=== PATIENT | male | born 1940 | race Caucasian/White ===

== ENCOUNTER → 2018-07-08 09:37 | Outpatient (CLI) | payer OTHER, SELFPAY ==
--- NOTE | 2018-07-08 09:40 | RAD_ITS ---
STUDY: X-RAY - RIGHT KNEE REASON FOR EXAM: Male, 78 years old. Pain. TECHNIQUE: 4 view(s) of the knee. COMPARISON: None. FINDINGS: Normal visualized distal femur. Normal visualized proximal tibia and fibula. Normal proximal tibiofibular articulation. There is no acute fracture, dislocation or destructive osseous pathology. There is mild degenerative arthrosis of the medial femorotibial compartment. There is mild degenerative arthrosis of the lateral femorotibial compartment. There is mild degenerative arthrosis of the patellofemoral articulation. There is no demonstrated joint effusion. The soft tissue structures are unremarkable. RAD/Knee 4 or More Views IMPRESSION: Degenerative arthrosis. Electronically Signed: Javy Arenas DO at 19:41 EST Tel [phone], Service support ,
== END ==
PROVIDERS: Family Provider Family Medicine; PCP Family Medicine; Referring Provider Orthopaedic Surgery; Visit Provider Orthopaedic Surgery
DX: M17.11 Unilateral primary osteoarthritis, right knee (principal)
CPT/HCPCS: 73564

== ENCOUNTER → 2018-08-16 12:03 | Outpatient (CLI) | payer OTHER, SELFPAY | PROVIDERS: Family Provider Family Medicine; PCP Family Medicine; Referring Provider Dermatology Pediatric Dermatology; Visit Provider Dermatology Pediatric Dermatology | DX: L02.31 Cutaneous abscess of buttock (principal) | CPT/HCPCS: 87070; 87077; 87205 ==

== ENCOUNTER → 2019-02-02 14:17 | Outpatient (CLI) | payer OTHER, SELFPAY ==
--- NOTE | 2019-02-02 14:18 | RAD_ITS ---
STUDY: X-RAY - RIGHT KNEE REASON FOR EXAM: Pain, felt a pop. TECHNIQUE: 4 view(s) of the knee. COMPARISON: Radiographs 07/08/2018. FINDINGS: Normal visualized distal femur. Normal visualized proximal tibia and fibula. Normal proximal tibiofibular articulation. There is mild joint space narrowing of the medial femorotibial compartment. There is a subtle osteochondral lesion of the lateral femoral condyle on the tunnel view without interval change. There are minimal marginal osteophytes and mild joint space narrowing of the patellofemoral articulation. The soft tissue structures are unremarkable. RAD/Knee 4 or More Views IMPRESSION: Mild arthrosis of the medial femorotibial and patellofemoral compartments. Subtle osteochondral lesion of the lateral femoral condyle. Electronically Signed: Mohamud Sevlila MD at 15:34 EDT Tel , Service support ,
== END ==
PROVIDERS: Family Provider Family Medicine; PCP Family Medicine; Referring Provider Physician Assistant; Visit Provider Physician Assistant
DX: M25.561 Pain in right knee (principal)
CPT/HCPCS: 73564

== ENCOUNTER → 2020-04-29 07:42 | Outpatient (CLI) | payer OTHER, SELFPAY | PROVIDERS: PCP Family Medicine; Referring Provider Orthopaedic Surgery; Visit Provider Orthopaedic Surgery | DX: I70.90 Unspecified atherosclerosis (principal); M18.12 Unilateral primary osteoarthritis of first carpometacarpal joint, left hand | CPT/HCPCS: 93930 ==

== ENCOUNTER 2021-05-05 14:22 | Outpatient (CLI) | payer OTHER, SELFPAY ==
[2021-05-05 14:48] VITALS: BP 115/76; PULSE 93; RESP 16; TEMP 36.9; O2SAT 97; BMI 27.1
[2021-05-05] MEDS: 0.9% Saline Lock 10 ML Syringe IV (14:56)
[2021-05-05 15:37] VITALS: BP 108/55; PULSE 94; RESP 16; TEMP 37.1; O2SAT 98
[2021-05-05 16:22] VITALS: BP 103/77; PULSE 98; RESP 16; TEMP 37.2; O2SAT 98
== END 2021-05-05 16:37 | disposition home or self-care (01) ==
LOC: MS3OUT 14:22 → MS3 14:23
PROVIDERS: PCP Student in an Organized Health Care Education/Training Program; Referring Provider Internal Medicine Pulmonary Disease; Visit Provider Internal Medicine Pulmonary Disease
DX: Z23 Encounter for immunization (principal); U07.1 COVID-19
CPT/HCPCS: J7050; M0243; A4216; Q0244

== ENCOUNTER → 2021-05-12 | Outpatient (CLI) | payer OTHER, SELFPAY | END | disposition home or self-care (01) | LOC: LABSPEC 15:13 | PROVIDERS: Referring Provider Otolaryngology Otolaryngology/Facial Plastic Surgery; Visit Provider Otolaryngology Otolaryngology/Facial Plastic Surgery | DX: J32.9 Chronic sinusitis, unspecified (principal) | CPT/HCPCS: 87070; 87205 ==

== ENCOUNTER → 2021-05-22 11:10 | Outpatient (CLI) | payer OTHER, SELFPAY ==
--- NOTE | 2021-05-22 11:13 | RAD_ITS ---
STUDY: X-RAY CHEST REASON FOR EXAM: Male, 80 years old. Chest pain/pressure TECHNIQUE: PA and lateral views of the chest. COMPARISON: None. FINDINGS: The lungs are clear and expanded. There is no demonstrated pleural abnormality. Normal size heart. Normal mediastinum and braeden. Normal visualized pulmonary arteries. Normal visualized aortic arch and descending thoracic aorta. There are diffuse degenerative changes of the visualized thoracic spine. Normal visualized ribs, clavicles, and shoulders. There is no demonstrated abnormality of the visualized soft tissue structures of the upper abdomen. RAD/Chest PA and Lateral IMPRESSION: No acute pulmonary process Electronically Signed: Basil Delgado MD at 15:43 EST , Service support ,
== END ==
PROVIDERS: Referring Provider Internal Medicine Pulmonary Disease; Visit Provider Internal Medicine Pulmonary Disease
DX: U07.1 COVID-19 (principal)
CPT/HCPCS: 71046

== ENCOUNTER → 2023-09-14 | Outpatient (CLI) | payer OTHER, SELFPAY ==
[2023-09-14 08:19] LABS: Bacteria 0 SEEN /hpf (None Seen); Mucous, Urine 0 SEEN /hpf (<or=2+); Red Blood Cells-Urine 0 SEEN /hpf (0-5); Squamous Epithelial Cells - UA 0 SEEN /hpf (0-5)
[2023-09-14 10:56] LABS: Color, Urine Yellow (Yellow); Glucose, Dipstick Normal (Normal); Ketone-Dipstick Negative (Negative); Leukocyte Esterase-Dipstick Negative /ul (Negative); Nitrite-Dipstick Negative (Negative); Occult Blood-Urine Negative /ul (Negative); Protein-Dipstick Negative (Negative); Urine Bilirubin Dipstick Negative (Negative); Urine Clarity Clear (Clear); Urine Urobilinogen Normal (Normal)
[2023-09-14 11:11] LABS: White Blood Cells 0-5 SEEN /hpf (0-5)
== END | disposition home or self-care (01) ==
PROVIDERS: Visit Provider Physician Assistant
DX: R30.0 Dysuria (principal)
CPT/HCPCS: 81001; 87086

== ENCOUNTER 2024-06-19 17:28 | Emergency (ER) | payer MEDICARE, OTHER, SELFPAY ==
[2024-06-19 17:30] VITALS: BP 122/106; PULSE 103; RESP 15; TEMP 36; O2SAT 97; BMI 26.8
--- NOTE | 2024-06-19 20:02 | EX.ED.DYSGE1 ---
HPI History of Present Illness Chief Complaint: GI Bleed [facility] Medical History (Updated 06/19/24 @ 22:[address] Cristhian Case, DO) Impingement of right shoulder Right shoulder pain Dysuria Urinary incontinence Prostate cancer A-fib H/O TIA (transient ischemic attack) and stroke hypertension tonsilectomy Appendiceal Removal Gallbladder Removal spinal fusion Home Medications ?Medication ?Instructions ?Recorded ?Last Taken ?Type citalopram 40 mg tablet 20 mg PO DAILY 07/08/18 Unknown History multivitamin (Daily Multi-Vitamin 1 tab PO DAILY 07/08/18 Unknown History tablet) pravastatin 80 mg tablet 80 mg PO DAILY 07/08/18 Unknown History lisinopril 10 mg tablet 5 mg PO DAILY 05/09/20 Unknown History omega-3 fatty acids 1,000 mg 1,000 mg PO DAILY 06/13/20 Unknown History capsule (Fish Oil Concentrate) pantoprazole 40 mg tablet,delayed 40 mg PO DAILY 06/13/20 Unknown History release polyethylene glycol 3350 17 17 g PO DAILY 06/13/20 Unknown History gram/dose oral powder (Miralax) apixaban 5 mg tablet (Eliquis) 5 mg PO BID 01/22/22 Unknown History nifedipine 30 mg tablet,extended 30 mg PO DAILY #90 tabs 02/12/22 Unknown Rx release pseudoephedrine 60 mg-DM 15 1 tab PO Q4-6H PRN cold symptoms 06/02/24 Unknown Rx mg-guaifenesin 400 mg tablet #20 tabs (Capmist DM) pseudoephedrine HCl 120 mg 120 mg PO Q12H PRN nasal 06/02/24 Unknown Rx tablet,extended release (Nasal congestion #30 tabs Decongestant (pseudoephedrine)) albuterol sulfate 90 mcg/actuation 2 puff inhalation Q4-6H PRN 06/05/24 Unknown Rx aerosol inhaler shortness of breath or wheezing #6.7 grams Allergy/AdvReac Type Severity Reaction Status Date / Time venom-honey bee Allergy Hives Verified 06/19/24 17:30 hydrocodone AdvReac Upset Verified 06/19/24 17:30 Stomach oxycodone AdvReac Upset Verified 06/19/24 17:30 Stomach Surgical History H/O colonoscopy History of appendectomy History of cholecystectomy History of back surgery (~12/2017) History of left knee replacement Social History Smoking Status: Former smoker alcohol intake: never substance use type: does not use EXAM Physical Exam Const Vital Signs: 06/19/24 17:30 06/19/24 20:27 06/19/24 22:00 Temperature 96.8 F L Temperature Source Temporal Pulse Rate 103 H 66 81 Respiratory Rate 15 15 15 Blood Pressure 122/106 H 141/70 H 136/87 H Blood Pressure Mean 111 93 103 Pulse Ox 97 97 97 Oxygen Delivery Method Room Air Room Air Room Air MDM MDM MDM Narrative Medical decision making narrative: HISTORY OF PRESENT ILLNESS: 84-year-old male here with concern for GI bleed. Notes is on Eliquis. Notes this morning he is constipated. Notes his gave him a Fleet enema. Since then he has been experiencing lower abdominal pain and bloating. He notes he had a bowel movement with bright red blood. Notes on Eliquis. Denies vomiting. Denies fever. REVIEW OF SYSTEMS: Pertinent positives: Constipation, bright red blood bowel movement, abdominal pain, bloating Pertinent negatives: Vomiting, fever PHYSICAL EXAM: Nursing triage notes reviewed, Vital signs reviewed Constitutional: please see mdm HENT: MMM Eyes: Pupils equal round and reactive to light, Extraocular muscles intact Neck: No stridor, no JVD, full neck ROM Lungs: Clear to auscultation, No wheezing or rales. No increased work of breathing, no conversational dyspnea, no accessory muscle use, no nasal flaring. No respiratory distress noted Heart: Regular rate and rhythm, No murmurs, No rubs and No gallops, 2+ distal pulses (radial, femoral, posterior tibial) in all extremities Abdomen: Soft, there is no tenderness, rigidity, rebound or guarding, no obvious peritoneal signs, no palpable pulsatile abdominal masses, no auscultated abdominal bruit : No CVAT Extremities: No edema Neuro: No new focal neurological deficits, cranial nerves II through XII intact, 5/5 strength in all present extremities. Intact sensation to light touch in all present extremities, 2+ reflexes bilateral patella tendons. Rectal: Performed supervisor [employer] division in room shows nonbleeding hemorrhoid, no fissures, no fistulas. No gross blood. No melena noted on glove. Occult blood sample sent to lab. Skin: No rash or lesions noted MEDICAL DECISION MAKING: Chief Complaint: Bright red blood per rectum, abdominal pain External records reviewed: Reviewed patient medications. He is currently on Eliquis Factors affecting care: A-fib on Eliquis, prostate cancer, history of appendectomy, cholecystectomy Social determinants of health: none History obtained from others: none Consults: Gastroenterology MDM Narrative: Patient was initially hemodynamically stable, afebrile and nontoxic-appearing. Exam with lower abdominal distention I considered the following differential diagnosis: Acute surgical intra-abdominal pathology, anemia, GI bleed I obtained a broad lab and imaging workup to further elucidate etiology of the patient's complaints. ALL IMAGES (IF OBTAINED) HAVE BEEN PERSONALLY REVIEWED AND INTERPRETED BY MYSELF. CBC with no leukocytosis to suggest systemic inflammation, mild anemia hemoglobin 11.5, no thrombocytopenia CMP without evidence of acute kidney injury, significant electrolyte abnormality, anion gap to suggest end organ hypo-perfusion, no evidence of metabolic acidosis with a normal bicarbonate, no evidence of hepatobiliary obstructive pathology. Lipase is wnl indicating no pancreatic inflammation. Urinalysis shows no evidence of urinary inflammation suggestive of UTI Stool occult positive CT scan abdomen/pelvis shows no evidence of acute obstruction/perforation or AAA. I calculated [place] score. [place] score 13. Discussed with GI. Given concern for GI bleed on Eliquis I consulted GI. Spoke with Dr. Hooks. Dr. Hooks noted given the patient's report of recent rectal manipulation in the form of Fleet enema patient has a possible reason for GI bleeding. He states despite the patient's elevated [place] score and recommendation for admission patient does not require emergent GI intervention at this time and he is appropriate for discharge home with close follow-up with Dr. Hooks as an outpatient. Discussed with patient who is amenable to discharge. He noted he would return if symptoms change or worsen. The patient and/or family, caregivers express understanding. The patient and/or family, caregivers agrees with the plan. Shared decision making: I will have a discussion with the patient and or visitors regarding risk/benefits of further testing or admission. They will be made aware of of the risk/benefits inherent in this decision they will be given the opportunity to voice understanding. Total critical care time today provided was at least 0 minutes. This excludes separately billable procedures. Critical care time (if documented) is secondary to the patient having high probability of clinically significant/life threatening deterioration in the patient's condition which required my urgent intervention. Impression: 1. Acute abdominal pain 2. Lower GI bleed 3. History of anticoagulation Dispo: discharge This note was generated with [employer] dictation software. It may contain incorrect words, spelling, and punctuation that were not noted in review of the chart prior to signing. Lab Data Labs: Laboratory Results - last 24 hr 06/19/24 06/19/24 06/19/24 20:24 20:25 20:45 WBC 7.2 Cancelled Corrected WBC Cancelled RBC 3.27 L Cancelled Hgb 11.5 L Cancelled Hct 33.2 L Cancelled MCV 101.5 H Cancelled MCH 35.2 H Cancelled MCHC 34.6 Cancelled RDW Std Deviation 58.8 H Cancelled RDW Coeff of Amisha 16.1 H Cancelled Plt Count 318 Cancelled MPV 11.3 Cancelled Immature Gran % (Auto) 0.700 Cancelled Neut % (Auto) 77.0 H Cancelled Lymph % (Auto) 14.9 L Cancelled [place] % (Auto) 5.7 Cancelled Eos % (Auto) 1.3 Cancelled Baso % (Auto) 0.4 Cancelled Absolute Neuts (auto) 5.5 Cancelled Absolute Lymphs (auto) 1.07 Cancelled Total Counted Cancelled Neutrophils % (Manual) Cancelled Band Neutrophils % Cancelled Lymphocytes % (Manual) Cancelled Monocytes % (Manual) Cancelled Eosinophils % (Manual) Cancelled Basophils % (Manual) Cancelled Metamyelocytes % Cancelled Myelocytes % Cancelled Promyelocytes % Cancelled Blast Cells % Cancelled Plasma Cell % (Manual) Cancelled Other Cells % Cancelled Nucleated RBC % 0 Cancelled Nucleated RBCs/100 WBC Cancelled Differential Comment Cancelled Diff Path Review Cancelled Hypersegmented Neuts Cancelled Atypical Lymphocytes Cancelled Reactive Lymphocytes Cancelled Smudge Cells Cancelled Toxic Granulation Cancelled Toxic Vacuolation Cancelled Dohle Bodies Cancelled Miguel Rods Cancelled Platelet Estimate Cancelled Plt Morphology Comment Cancelled RBC Morphology Cancelled Polychromasia Hypochromasia Basophilic Stippling Anisocytosis Microcytosis Macrocytosis Spherocytes Sickle Cells Target Cells Tear Drop Cells Ovalocytes Stomatocytes [place] Bodies Kathy Cells Bite Cells Crenated Cell Acanthocytes (Spur) Rouleaux Schistocytes Sodium Cancelled Potassium Cancelled Chloride Cancelled Carbon Dioxide Cancelled Anion Gap Cancelled BUN Cancelled Creatinine Cancelled Estim Creat Clear Calc Cancelled Est GFR (MDRD) Af Amer Cancelled Est GFR (MDRD) Non-Af Cancelled BUN/Creatinine Ratio Cancelled Glucose Cancelled Calcium Cancelled Total Bilirubin Cancelled AST Cancelled ALT Cancelled Alkaline Phosphatase Cancelled Total Protein Cancelled Albumin Cancelled Globulin Cancelled Albumin/Globulin Ratio Cancelled Amylase Lipase Urine Color Yellow Urine Clarity Clear Urine pH 6.0 Ur Specific [place] 1.015 Urine Protein 15 H Urine Glucose (UA) Normal Urine Ketones Negative Urine Occult Blood Negative Urine Nitrite Negative Urine Bilirubin Negative Urine Urobilinogen Normal Ur Leukocyte Esterase Negative Urine RBC 0 SEEN Urine WBC 0 SEEN Ur Squamous Epith Cells 0 SEEN Urine Bacteria 0 SEEN Urine Mucus 0 SEEN 06/19/24 20:45 WBC Corrected WBC RBC Hgb Hct MCV MCH MCHC RDW Std Deviation RDW Coeff of Amisha Plt Count MPV Immature Gran % (Auto) Neut % (Auto) Lymph % (Auto) [place] % (Auto) Eos % (Auto) Baso % (Auto) Absolute Neuts (auto) Absolute Lymphs (auto) Total Counted Neutrophils % (Manual) Band Neutrophils % Lymphocytes % (Manual) Monocytes % (Manual) Eosinophils % (Manual) Basophils % (Manual) Metamyelocytes % Myelocytes % Promyelocytes % Blast Cells % Plasma Cell % (Manual) Other Cells % Nucleated RBC % Nucleated RBCs/100 WBC Differential Comment Diff Path Review Hypersegmented Neuts Atypical Lymphocytes Reactive Lymphocytes Smudge Cells Toxic Granulation Toxic Vacuolation Dohle Bodies Miguel Rods Platelet Estimate Plt Morphology Comment RBC Morphology Cancelled Polychromasia Cancelled Hypochromasia Cancelled Basophilic Stippling Cancelled Anisocytosis Cancelled Microcytosis Cancelled Macrocytosis Cancelled Spherocytes Cancelled Sickle Cells Cancelled Target Cells Cancelled Tear Drop Cells Cancelled Ovalocytes Cancelled Stomatocytes Cancelled [place] Bodies Cancelled [place] Cells Cancelled Bite Cells Cancelled Crenated Cell Cancelled Acanthocytes (Spur) Cancelled Rouleaux Cancelled Schistocytes Cancelled Sodium 138 Potassium 4.4 Chloride 105 Carbon Dioxide 25.0 Anion Gap 8 BUN 26 H Creatinine 1.27 Estim Creat Clear Calc 49.22 Est GFR (MDRD) Af Amer 70 Est GFR (MDRD) Non-Af 58 L BUN/Creatinine Ratio 20.5 H Glucose 98 Calcium 9.7 Total Bilirubin 1.30 H AST 31 ALT 26 Alkaline Phosphatase 96 Total Protein 7.0 Albumin 3.7 Globulin 3.3 Albumin/Globulin Ratio 1.1 Amylase 63 Lipase 50 Urine Color Urine Clarity Urine pH Ur Specific [place] Urine Protein Urine Glucose (UA) Urine Ketones Urine Occult Blood Urine Nitrite Urine Bilirubin Urine Urobilinogen Ur Leukocyte Esterase Urine RBC Urine WBC Ur Squamous Epith Cells Urine Bacteria Urine Mucus Radiography Diagnostic Testing: Clinical Impression(s) from Imaging Studies Abdomen/Pelvis CT 06/19/24 20:13 IMPRESSION: Diverticular disease of the descending colon without evidence for acute diverticulitis No evidence for small bowel obstruction or other acute abnormality Status post cholecystectomy and appendectomy. Other findings as above Electronically Signed: Yair Ng MD at 21:16 EST Reading Location ID and State: [address] [place] [address] Tel , Service support , Discharge Plan Triage Chief Complaint: GI Bleed ED Provider: Cristhian Case Dx/Rx/DC Orders Clinical Impression: BRBPR (bright red blood per rectum) Instructions: GI Bleeding Causes and Tests Prescriptions: No Action citalopram 40 mg tablet 20 mg PO DAILY pravastatin 80 mg tablet 80 mg PO DAILY multivitamin [Daily Multi-Vitamin] tablet 1 tab PO DAILY lisinopril 10 mg tablet 5 mg PO DAILY pantoprazole 40 mg tablet,delayed release (DR/EC) 40 mg PO DAILY omega-3 fatty acids [Fish Oil Concentrate] 1,000 mg capsule 1,000 mg PO DAILY polyethylene glycol 3350 [Miralax] 17 gram/dose powder 17 g PO DAILY nifedipine 30 mg tablet extended release 30 mg PO DAILY Qty: 90 3RF Capmist DM 60-15-400 mg tablet 1 tab PO Q4-6H PRN (Reason: cold symptoms) Qty: 20 0RF Rx Instructions: do not exceed 4 doses per 24 hrs pseudoephedrine HCl [Nasal Decongestant (pseudoeph)] 120 mg tablet extended release 120 mg PO Q12H PRN (Reason: nasal congestion) Qty: 30 0RF Eliquis 5 mg tablet 5 mg PO BID albuterol sulfate 90 mcg/actuation HFA aerosol inhaler 2 puff inhalation Q4-6H PRN (Reason: shortness of breath or wheezing) Qty: 6.7 0RF Primary Care Provider: Ariel Pope Referrals: Ariel Pope DO [Primary Care Provider] - FriendViktor DO [Med Staff - Active Staff] - Activity Restrictions/Additional Instructions: Thank you for trusting us with your care today! Your labs were reassuring specifically no sign of significant anemia. Your CT scan did not show evidence of obstruction or perforation. I discussed your case with the GI doctor on-call. I spoke to Dr. Hooks. He thought you are safe to follow-up with him this week in his office. Please call the numbers been provided tomorrow morning to schedule an appointment. Please take Tylenol (2 pills, 650 mg) every 6 hours as needed for pain and fever control. Please return to the emergency department if your symptoms change or worsen. Specifically if develop lightheadedness, dizziness, heavy rectal bleeding, if you lose consciousness, if you develop chest pain or shortness of breath, if you look pale. Please follow with Gastroenterology for further outpatient evaluation and management. Print Language: Bengali Disposition Disposition: Home, Self Care
--- NOTE | 2024-06-19 20:13 | CT_ITS ---
STUDY: CT ABDOMEN AND PELVIS WITH CONTRAST REASON FOR EXAM: Male, 84 years old. diffuse abdominal pain, bloating RADIATION DOSAGE (If Supplied By Facility): CTDIvol = ( 16.64 ) mGy, DLP = ( 1060.07 ) mGycm TECHNIQUE: Transaxial images were obtained from the dome of the diaphragm to the symphysis pubis without oral contrast. IV 100mL Isovue-300 was administered. Sagittal and coronal images were reconstructed. Individualized dose optimization techniques were used for this CT. COMPARISON: None. FINDINGS: The visualized lung bases are unremarkable. The visualized portions of the heart are within normal limits. Liver is normal size. There is a tiny cyst in left lobe. Bile ducts are not dilated. Gallbladder has been removed surgically. Normal spleen. Normal pancreas. Normal bilateral adrenal glands. 2 large simple cyst in right kidney which cannot require additional imaging and 2 tiny cysts in the left . No evidence for renal obstruction or ureteral calculus Normal visualized stomach. Normal small intestine. Diverticular disease of the descending colon without evidence for acute diverticulitis. Appendix is not visualized status post appendectomy Atherosclerotic changes of the aorta without evidence for aneurysm. Normal inferior vena cava. Normal retroperitoneum. Normal urinary bladder. Prostate is enlarged. Moderate-sized fat-containing right inguinal hernia . Lumbar spine demonstrates degenerative changes. Grade 1 spondylolisthesis at L4-5. Status post bilateral laminectomy and posterior fusion at L4-5 . Tiny sclerotic densities within the right hip most likely bone islands CT/Abdomen/Pelvis W IV Cont ONLY IMPRESSION: Diverticular disease of the descending colon without evidence for acute diverticulitis No evidence for small bowel obstruction or other acute abnormality Status post cholecystectomy and appendectomy. Other findings as above Electronically Signed: Yair Ng MD at 21:16 EST ,
[2024-06-19 20:27] VITALS: BP 141/70; PULSE 66; RESP 15; O2SAT 97
[2024-06-19] MEDS: 0.9% Normal Saline (1000mL) 1,000 ML 999 ML IV (20:41)
[2024-06-19] MEDS: Morphine 4 MG/ML Syringe IV (20:42)
[2024-06-19] MEDS: Ondansetron 4 MG/2 ML Vial IV (20:42)
[2024-06-19 20:49] LABS: Bacteria 0 SEEN /hpf (None Seen); Mucous, Urine 0 SEEN /hpf (<or=2+); Red Blood Cells-Urine 0 SEEN /hpf (0-5); Squamous Epithelial Cells - UA 0 SEEN /hpf (0-5); White Blood Cells 0 SEEN /hpf (0-5)
[2024-06-19 21:06] LABS: Color, Urine Yellow (Yellow); Glucose, Dipstick Normal (Normal); Ketone-Dipstick Negative (Negative); Leukocyte Esterase-Dipstick Negative /ul (Negative); Nitrite-Dipstick Negative (Negative); Occult Blood-Urine Negative /ul (Negative); Protein-Dipstick 15 mg/dl (Negative); Specific Gravity, Urine 1.015 (1.002-1.030); Urine Bilirubin Dipstick Negative (Negative); Urine Clarity Clear (Clear); Urine Urobilinogen Normal (Normal)
[2024-06-19 21:11] LABS: ALB/GLOB Ratio 1.1 RATIO (0.9-2.4); AST(SGOT) 31 U/L (15-37); Alanine Aminotransfer ALT/SGPT 26 U/L (16-61); Albumin, Serum 3.7 g/dL (3.2-5.0); Alkaline Phosphatase 96 U/L (45-117); Amylase 63 U/L (25-115); Anion Gap 8 (5-15); BUN 26 mg/dL (7-18); BUN/Creat Ratio 20.5 RATIO (10-20); Calcium,Total 9.7 mg/dL (8.5-10.1); Chloride 105 mmol/L (98-107); Creatinine, Serum 1.27 mg/dL (0.70-1.30); EST Glomerular Filtration Rate 58 mL/min (>60); Est Glom Filt Rate - Afr Amer 70 mL/min (>60); Estimated Creatinine Clearance 49.22 ml/min; Globulin 3.3 g/dL (2.2-4.2); Glucose 98 mg/dL (74-106); Lipase 50 U/L (13-75); Potassium 4.4 mmol/L (3.5-5.1); Sodium Level 138 mmol/L (136-145)
[2024-06-19 21:28] LABS: Absolute Lymphocyte Count 1.07 X10^3/uL (0.83-4.51); Absolute Neutrophil Count 5.5 X10^3/uL (2.0-7.7); Basophil# 0.03 X10^3/uL; Basophil% 0.4 % (0-1); Eosinophil# 0.09 X10^3/uL; Eosinophils% 1.3 % (0-5); Hematocrit 33.2 % (40-54); Hemoglobin 11.5 g/dL (13.0-16.5); Lymphocyte # 1.07 X10^3/ul (0.83-4.51); Lymphocyte % 14.9 % (19-41); Mean Corp Hgb Conc 34.6 g/dL (32-36); Mean Corpuscular Hgb 35.2 pg (27.0-32.0); Mean Corpuscular Volume 101.5 fL (80-94); Mean Platelet Vol. 11.3 fl (6.2-12.0); Monocyte# 0.41 X10^3/uL; Monocyte% 5.7 % (0-10); NRBC Flagged by Analyzer 0 % (0-5); Neutrophil # 5.51 X10^3/uL (2.7-7.7); Platelet Count 318 K/mm3 (150-450); RBC Distribution Width CV 16.1 % (11.6-14.6); RBC Distribution Width SD 58.8 fl (35.1-43.9); Red Blood Count 3.27 M/mm3 (4.6-6.2); White Blood Count 7.2 K/mm3 (4.4-11.0)
[2024-06-19 22:00] VITALS: BP 136/87; PULSE 81; RESP 15; O2SAT 97
[2024-06-19 23:09] VITALS: BP 132/75; PULSE 72; RESP 18; TEMP 36.7; O2SAT 96
== END 2024-06-19 23:14 | disposition home or self-care (01) ==
PROVIDERS: Emergency Provider Emergency Medicine; PCP Student in an Organized Health Care Education/Training Program; Referring Provider Emergency Medicine; Visit Provider Emergency Medicine
DX: K62.5 Hemorrhage of anus and rectum (principal); I48.91 Unspecified atrial fibrillation; R10.9 Unspecified abdominal pain; R14.0 Abdominal distension (gaseous); Z87.891 Personal history of nicotine dependence; Z79.01 Long term (current) use of anticoagulants; Z90.49 Acquired absence of other specified parts of digestive tract; Z98.1 Arthrodesis status; Z86.73 Personal history of transient ischemic attack (TIA), and cerebral infarction without residual deficits; Z85.46 Personal history of malignant neoplasm of prostate
CPT/HCPCS: 74177; 80053; 81001; 82150; 82274; 83690; 85025; 96361; 96374; 96375; 99284; Q9967; J2405

== ENCOUNTER → 2024-06-22 | Outpatient (CLI) | payer MEDICARE, OTHER, SELFPAY ==
[2024-06-22 09:58] LABS: Absolute Lymphocyte Count 1.04 X10^3/uL (0.83-4.51); Absolute Neutrophil Count 2.3 X10^3/uL (2.0-7.7); Basophil# 0.03 X10^3/uL; Basophil% 0.8 % (0-1); Eosinophil# 0.15 X10^3/uL; Eosinophils% 3.9 % (0-5); Hemoglobin 11.2 g/dL (13.0-16.5); Lymphocyte # 1.04 X10^3/ul (0.83-4.51); Lymphocyte % 27.1 % (19-41); Mean Corpuscular Hgb 42.4 pg (27.0-32.0); Mean Corpuscular Volume 102.3 fL (80-94); Mean Platelet Vol. 11.1 fl (6.2-12.0); Monocyte# 0.32 X10^3/uL; Monocyte% 8.3 % (0-10); NRBC Flagged by Analyzer 0 % (0-5); Neutrophil # 2.28 X10^3/uL (2.7-7.7); Neutrophil % 59.4 % (47-70); Platelet Count 261 K/mm3 (150-450); RBC Distribution Width CV 15.4 % (11.6-14.6); RBC Distribution Width SD 56.2 fl (35.1-43.9); Red Blood Count 2.64 M/mm3 (4.6-6.2); White Blood Count 3.8 K/mm3 (4.4-11.0)
[2024-06-22 10:21] LABS: Mean Corp Hgb Conc 33.4 g/dL (32-36)
[2024-06-22 10:29] LABS: Hematocrit 33.4 % (40-54)
== END | disposition home or self-care (01) ==
PROVIDERS: PCP Student in an Organized Health Care Education/Training Program; Referring Provider Student in an Organized Health Care Education/Training Program; Visit Provider Student in an Organized Health Care Education/Training Program
DX: K62.5 Hemorrhage of anus and rectum (principal)
CPT/HCPCS: 36415; 85025

== ENCOUNTER → 2025-05-18 | Outpatient (CLI) | payer MEDICARE, OTHER, SELFPAY ==
--- NOTE | 2025-05-18 06:50 | CT_ITS ---
PROCEDURE: ABDOMEN/PELVIS WITH CONTRAST 05/18/2025 REASON FOR EXAM: ABD PAIN AND CONSTIPATION TECHNIQUE: Procedure Code: [id number] Modality: CT Procedure: ABDOMEN/PELVIS WITH CONTRAST Coronal and Sagittal reconstruction series were provided. CONTRAST: Isovue 370 VOLUME: 89 mL One or more dose reduction techniques were used (e.g., Automated exposure control, adjustment of the mA and/or kV according to patient size, use of iterative reconstruction technique. RADIATION DOSE SUMMARY: CTDlvol: 29.31 mGy DLP: 1520.45 mGycm COMPARISON: CT abdomen and pelvis June 19, 2024. FINDINGS: Lung bases: Clear. Atherosclerotic calcifications of the coronary arteries. Liver: Unremarkable. Gallbladder: Cholecystectomy. No biliary dilation. Spleen: Unremarkable. Pancreas: Unremarkable. Adrenals: Unremarkable. Kidneys: Bilateral simple kidney cysts with the largest measures 8 cm at the midpole of the right kidney. Perinephric fat stranding. No hydronephrosis. No nephrolithiasis. Bladder: Unremarkable. Reproductive Organs: Unremarkable. Bowel: Colonic diverticulosis without evidence of acute diverticulitis. Appendix: Normal. Lymph nodes: No lymphadenopathy. Vasculature: Atherosclerotic calcifications of the aorta and iliac arteries. Peritoneum / Retroperitoneum: No free air or free fluid. Bones: Status post L4 laminectomies and multilevel degenerative of the lumbar spine. Anterolisthesis L4 on L5 by 5 mm. Retrolisthesis L1 and L2 and L2 on L3 by [address]/Abdomen/Pelvis WITH Contrast IMPRESSION: Perinephric fat stranding. No hydronephrosis. No nephrolithiasis. Correlation with urinalysis is recommended. Colonic diverticulosis without evidence of acute diverticulitis. Reading Location: [facility]
--- OUTSIDE RECORDS SUMMARY | 2025-05-18 06:51 | XMS RPT_ITS | CCD ---
Author Organization [facility] Care Team Providers Care Operations Support Specialist Name Role Phone ANA SHAIKH DO Primary Care Physician [phone] Radha Graves PT Unavailable Unavailable Neel HERRERA MD, Michael Primary Care Provider [phone] Neel HERRERA DO, Michael A Primary Care Provider [phone] Alex GONSALEZ, WALLACE Jin Attending Provider [phone] YAIR GAMEZ DO Attending Unavailabl e NEEL DUQUE, ANA Primary Care Unavailable JULIUS CH DPM Attending Unavailable HALKO DO, ANA Primary Care Unavailable HALKO DO, ANA Attending Unavailable HALKO DO, ANA Primary Care Unavailable HALKO DO, ANA Attending Unavailable HALKO , ANA Primary Care Unavailable HALKO DO, ANA Attending Unavailable HALKO DO, ANA Primary Care Unavailable HALKO DO, ANA Attending Unavailable HALKO DO, ANA Primary Care Unavailable Halko IVDO Michael A Primary Care Provider ANA SHAIKH IV Primary Care Unavailable RADHA SUAREZ Referring Unavailab le HALKO IV, ANA Mccoy Primary Care Unavailable RADHA SUAREZ Attending Unavailab le HALKO IV, ANA Mccoy Primary Care Unavailable CATORELRAHDA DENNISON Attending Unavailab le HALKO DO, ANA Primary Care Unavailable HALKO DO, ANA Attending Unavailable BARAKKO DO, ANA Primary Care Unavailable HALKO DO, ANA Attending Unavailable HALKO DO, ANA Attending Unavailable HALKO DO, ANA Primary Care Unavailable HALKO DO, ANA Primary Care Unavailable VERONICA BACA Attending Unavailable Dr. Ana Shaikh DO Primary Care Provider [phone] Dr. Ana Shaikh DO Referring Provider Delia Meyer Attending Provider Dr. Tashi Beasley MD Attending Provider Dr. Dedrick Loza MD Attending Provider Dr. Ana Shaikh DO Primary Care Provider Dr. Tashi Beasley MD Attending Provider Dr. Tashi Beasley MD Referring Provider Dr. Ana Shaikh DO Referring Provider [phone] Mary Rothman Attending Unavailable Halko, Ana Referring Unavailable Halko, Ana Primary Care Unavailable Jas Edwards Attending Unavailable Denia, Dedrick Attending Unavailable Halko, Ana Primary Care Unavailable Halko, Ana Referring Unavailable Halko, Ana Primary Care Unavailable Delia Mendez Attending Unavailable Halko, Ana Referring Unavailable Halko, Ana Primary Care Unavailable SiskaTashi Attending Unavailable Steve Power NP Attending Unavailable Halko, Ana Primary Care Unavailable Cristhian Case Attending Unavailable Cristhian Case Referring Unavailable AtanasovMary Referring Unavailable Halko, Ana Primary Care Unavailable Mary Rothman Attending Unavailable Dedrick Loza Attending Unavailable Halko, Ana Primary Care Unavailable Halko, Ana Primary Care Unavailable Gale, Tashi Attending Unavailable Tashi Beasley Referring Unavailable Dedrick Loza Attending Unavailable Halko, Ana Primary Care Unavailable Halko, Ana Referring Unavailable Halko, Ana Primary Care Unavailable Tashi Beasley Attending Unavailable Halko, Ana Referring Unavailable Halko, Ana Primary Care Unavailable Delia Mendez Attending Unavailable Dr. Ana Shaikh DO Primary Care Physician Dr. Tashi Beasley MD Attending Physician [phone] Andrea BEHAVIORAL SCIENTIST-CDelia Attending Physician [phone] Dr. Dedrick Loza MD Attending Physician Allergies Allergy Classification Reported Allergen(s) Allergy Type Date of Onset Reaction(s) Facility (14 sources) Acetaminophen / HYDROcodone; Translations: [acetaminophen-hy drocodone] Drug Allergy [facility] (20 sources) Amiodarone; Translations: [amiodarone] Drug Allergy 1 Lethargy (finding), Intolerance, Mental Status Change, Myalgia [facility] (14 sources) cefepime; Translations: [cefepime] Drug Allergy [facility] Comment on above: Not true allergy. Pe r 's request (20 sources) Etodolac; Translations: [etodolac] Drug Allergy 1 Weal (disorder), [facility] (20 sources) tamsulosin; Translations: [tamsulosin] Drug Allergy 1 Dizziness (finding), Unknown, Intolerance, Mental Status Change [facility] (14 sources) misc analgesics 2 Drug allergy [facility] Comment on above: allergic to darvocet 500 (14 sources) oxyCODONE; Translations: [OXYCODONE] Drug Allergy 1 GI Upset [facility] (5 sources) HYDROcodone Drug Allergy 4 Upset Stomach [facility] (5 sources) venom-honey bee Allergy to substance 4 [facility] (1 source) HYDROcodone Drug Allergy 5 [facility] (1 source) oxyCODONE Drug Allergy 5 [facility] (1 source) venom-honey bee Drug allergy (disorder) 5 [facility] Medications Current Medications Medication Drug Class(es) Dates Sig (Normalized) Sig (Original) acetaminophen 500 mg oral tablet (20 sources) Start: 08-16-2020 acetaminophen 500 mg oral tablet Dose : 1,000 mg = 2 tab(s), Oral, TID, PRN pain or fever, 0 Refill(s) Start Date: 08/16/20 Status: Ordered Repeat number: 1 acetaminophen (T YLENOL) 500 mg tablet Take 1,000 mg by mouth as needed. Active Comment on above: Take 1,000 mg by janessa th as needed. amitriptyline hydrochloride 10 mg oral tablet (1 source) Tricyclic Antidepressant Start: 06-03-19 amitriptyline 10 mg oral tablet Dose : 10 mg = 1 tab(s), qDay, 0 Refill(s) Start Date: 06/03/21 Status: Ordered citalopram 10 mg oral tablet (20 sources) Serotonin Reuptake Inhibitor Start: 03-27-20 take 1 tablet by mouth once daily citalopram 10 mg oral tablet Dose : 10 mg = 1 tab(s), Oral, qDay, on total of 30 mg daily, # 100 tab(s), 1 Refill(s), Pharmacy: [facility]/pharmacy #[id number], 182.5, cm, 03/27/24 15:55:00 EST, Height, kg, 03/27/24 15:55:00 EST, Dosing Weight Start Date: 03/27/24 Status: Ordered Quantity: 100.0 Unit: tab(s) Repeat number: 2 Start: 10-04-2023 take 1 tablet by janessa once daily citalopram 10 mg oral tablet Dose : 10 mg = 1 tab(s), Oral, qDay, on total of 30 mg daily, # 100 tab(s), 1 Refill(s), Pharmacy: [facility]/pharmacy #[id number], 184, cm, 10/04/23 16:28:00 EDT, Height, kg, 10/04/23 16:28:00 EDT, Dosing Weight Start Date: 10/04/23 Status: Ordered Start: 05-21-2023 take 1 tablet by janessa once daily citalopram 20 mg oral tablet Dose : 20 mg = 1 tab(s), Oral, qDay, on total of 30 mg daily, # 100 tab(s), 1 Refill(s), Pharmacy: [facility]/pharmacy #[id number], 182.5, cm, 03/27/24 15:55:00 EST, Height, kg, 03/27/24 15:55:00 EST, Dosing Weight Start Date: 03/27/24 Status: Ordered Quantity: 100.0 Unit: tab(s) Repeat number: 2 Start: 05-21-2023 take 1 tablet by janessa once daily citalopram 10 mg oral tablet Dose : 10 mg = 1 tab(s), Oral, qDay, on total of 30 mg daily, # 90 tab(s), 0 Refill(s), Pharmacy: [facility]/pharmacy #[id number], 184.2, cm, 05/21/23 7:59:00 EST, Height, kg, 05/21/23 7:59:00 EST, Dosing Weight Start Date: 05/21/23 Status: Ordered Start: 06-17-2022 End: 06-12-2023 citalopram 40 mg oral tablet Dose : 20 mg = 0.5 tab(s), Oral, qDay, # 45 tab(s), 3 Refill(s), Pharmacy: [facility]/pharmacy #[id number], 182.9, cm, 06/17/22 15:54:00 EST, Height, kg, 06/17/22 15:54:00 EST, Dosing Weight Start Date: 06/17/22 Stop Date: 06/12/23 Status: Ordered Start: 06-03-2021 End: 11-30-2021 citalopram 40 mg oral tablet Dose : 20 mg = 0.5 tab(s), Oral, qDay, # 45 tab(s), 1 Refill(s), Pharmacy: [facility]/pharmacy #[id number], 183.5, cm, 06/03/21 9:27:00 EST, Height, kg, 06/03/21 9:27:00 EST, Dosing Weight Start Date: 06/03/21 Stop Date: 11/30/21 Status: Ordered Start: 11-22-2020 End: 05-21-2021 citalopram 40 mg oral tablet Dose : 20 mg = 0.5 tab(s), Oral, qDay, # 45 tab(s), 1 Refill(s), Pharmacy: [facility]/pharmacy #[id number], 184, cm, 08/30/20 8:03:00 EDT, Height, kg, 08/30/20 8:03:00 EDT, Dosing Weight Start Date: 11/22/20 Stop Date: 05/21/21 Status: Ordered Start: 07-08-2018 Start: 07-08-2018 take 20 mg by mouth once daily Citalopram Active 20 MG PO DAILY July 08, 2018 1:00am Comment on above: Take 40 mg by mouth once daily. Take 20 mg by mouth once daily. citric acid 75 mg/ml / magnesium oxide 21.9 mg/ml / picosulfate sodium 0.0625 mg/ml oral solution (7 sources) Calculi Dissolution Agent, Anti-coagulant Start: 12-04-2019 CLENPIQ 10 mg-3.5 gram -12 gram/160 mL soln Indications: Constipation, unspecified constipation type , Blood in stool Use as instructed. 320 mL 12/04/2019 Active Comment on above: Use as instructed. CPAP (7 sources) CPAP Active CPAP CPAP Supplies (5 sources) Start: 10-03-2024 CPAP Supplies See Instructions, dx G47.33 Full setup (mask/tubing/water res) include heated tubing, # 1 EA, 3 Refill(s), Obstructive sleep apnea Start Date: 10/03/24 Status: Ordered Quantity: 1.0 Unit: EA Repeat number: 4 Indications: Obstructive sleep apnea (adult) (pediatric); Start: 03-06-2024 CPAP Supplies See Instructions, dx G47.33 Full setup (mask/tubing/water res) include heated tubing, # 1 EA, 3 Refill(s), Obstructive sleep apnea Start Date: 03/06/24 Status: Ordered Quantity: 1.0 Unit: EA Repeat number: 4 Indication: Obstructive sleep apnea (adult) (pediatric) Start: 03-06-2024 CPAP Supplies See Instructions, dx G47.33 Full setup (mask/tubing/water res) include heated tubing, # 1 EA, 3 Refill(s), Obstructive sleep apnea Start Date: 03/06/24 Status: Ordered Start: 02-11-2024 CPAP Supplies See Instructions, dx G47.33 Full setup (mask/tubing/water res), # 1 EA, 3 Refill(s), Obstructive sleep apnea Start Date: 02/11/24 Status: Ordered dexamethasone 2 mg oral tablet (1 source) Corticosteroid Start: 05-04-2021 End: 05-14-2021 dexamethasone 2 mg oral tablet Dose : 6 mg = 3 tab(s), Oral, qDay, X 10 day(s), # 30 tab(s), 0 Refill(s), 05/14/21 23:30:00 EST Start Date: 05/04/21 Stop Date: 05/14/21 Status: Ordered dextromethorphan hydrobromide 15 mg / guaiFENesin 400 mg / pseudoephedrine hydrochloride 60 mg oral tablet (4 sources) alpha-Adrenergic Agonist, Uncompetitive L-facxtf-R-aspartat e Receptor Antagonist, Sigma-1 Agonist Start: 06-02-2024 take 4 tablets by mouth every twenty-four hours as needed diclofenac sodium 0.01 mg/mg topical gel (14 sources) Nonsteroidal Anti-inflammatory Drug Start: 02-28-2021 Voltaren 1% topical gel Apply 1 jodi, Topical, QID, # 100 gram(s), 0 Refill(s), Gel, 93.1 Start Date: 02/28/21 Status: Ordered Quantity: 100.0 Unit: g Repeat number: 1 Start: 02-28-2021 Voltaren 1% to pical gel Apply 1 jodi, Topical, QID, # 100 gram(s), 0 Refill(s), Gel, 93.1 Start Date: 02/28/21 Status: Ordered DME MISCellaneous (12 sources) Start: 05-05-2021 DME MISCellane ous See Instructions, dispense one incentive spirometer; dx U07.1, # 1 EA, 0 Refill(s), Pharmacy: [facility] #30, COVID-19, 182.9, cm, 05/04/21 20:33:00 EST, Height, 90.9, kg, 05/04/21 20:33:00 EST, Dosing Weight Start Date: 05/05/21 Status: Ordered Quantity: 1.0 Unit: EA Repeat number: 1 Indications: COVID-19; Start: 05-05-2021 DME MISCellane ous See Instructions, dispense one incentive spirometer; dx U07.1, # 1 EA, 0 Refill(s), Pharmacy: [facility] #30, COVID-19, 182.9, cm, 05/04/21 20:33:00 EST, Height, 90.9, kg, 05/04/21 20:33:00 EST, Dosing Weight Start Date: 05/05/21 Status: Ordered Quantity: 1.0 Unit: EA Repeat number: 1 Indication: COVID-19 Start: 05-05-2021 DME MISCellane ous See Instructions, dispense one incentive spirometer; dx U07.1, # 1 EA, 0 Refill(s), Pharmacy: [facility] #30, COVID-19, 182.9, cm, 05/04/21 20:33:00 EST, Height, 90.9, kg, 05/04/21 20:33:00 EST, Dosing Weight Start Date: 05/05/21 Status: Ordered DOCOSAHEXANOIC ACID/EPA (FIS H OIL ORAL) (7 sources) take 1200 mg by mout h once daily DOCOSAHEXANOIC ACID/EPA (FISH OIL ORAL) Take 1,200 mg by mouth once daily. Active take 1200 mg by mouth once daily DOCOSAHEXANOIC ACID/EPA (FISH OIL ORAL) Take 1,200 mg by mouth once daily. 0 Active Comment on above: Take 1,200 mg by janessa th once daily. docusate sodium 100 mg oral capsule (4 sources) Start: 06-29-2024 Colace 100 mg oral capsule Dose : 100 mg = 1 cap(s), Oral, BID, PRN as needed for constipation, # 20 cap(s), 0 Refill(s) Start Date: 06/29/24 Status: Ordered Quantity: 20.0 Unit: cap(s) Repeat number: 1 Start: 04-04-2021 End: 05-04-2021 docusate sodium 100 mg oral capsule Dose : 100 mg = 1 cap(s), Oral, BID, PRN as needed for constipation, # 60 cap(s), 0 Refill(s), Pharmacy: [facility]/pharmacy #[id number], 184, cm, 03/26/21 16:03:00 EDT, Height, kg, 03/26/21 16:03:00 EDT, Dosing Weight Start Date: 04/04/21 Stop Date: 05/04/21 Status: Ordered doxycycline hyclate 100 mg oral capsule (3 sources) Tetracycline-class Drug Start: 05-21-2023 End: 05-31-2023 doxycycline hyclate 100 mg oral capsule Dose : 100 mg = 1 cap(s), Oral, BID, X 10 day(s), # 20 cap(s), 0 Refill(s), 05/31/23 8:16:00 AM EST, Pharmacy: [facility]/pharmacy #[id number], 184.2, cm, 05/21/23 7:59:00 EST, Height, 96.8, kg, 05/21/23 7:59:00 EST, Dosing Weight Start Date: 05/21/23 Stop Date: 05/31/23 Status: Ordered esomeprazole 40 mg delayed release oral capsule (7 sources) Proton Pump Inhibitor Start: 04-21-2021 take 1 capsule by mouth once daily esomeprazole (NEXIUM) 40 mg capsule Take 1 capsule by mouth once daily. 30 capsule 04/21/2021 Active Comment on above: Take 1 capsule by [facility] once daily. famotidine 20 mg oral tablet (1 source) Histamine-2 Receptor Antagonist Start: 04-24-2021 Pepcid 20 mg oral tablet Dose : 20 mg = 1 tab(s), Oral, qDay, 0 Refill(s) Start Date: 04/24/21 Status: Ordered Fish Oils (14 sources) Start: 02-24-2019 Fish Oil 1000 mg oral capsule Dose : 1,000 mg = 1 cap(s), Oral, BID, not suere if it's 1000mg, 0 Refill(s) Start Date: 02/24/19 Status: Ordered Repeat number: 1 Start: 02-24-2019 Fish Oil 1000 mg oral capsule Dose : 1,000 mg = 1 cap(s), Oral, BID, not suere if it's 1000mg, 0 Refill(s) Start Date: 02/24/19 Status: Ordered Start: 02-24-2019 Fish Oil 1000 mg oral capsule Dose : 1,000 mg = 1 cap(s), Oral, qDay, not suere if it's 1000mg, 0 Refill(s) Start Date: 02/24/19 Status: Ordered Ketoconazole (3 sources) Azole Antifungal Start: 03-26-2021 End: 06-18-2021 ketoconazole 2% topical cream Apply 1 jodi, Topical, BID, X 28 day(s), # 60 gram(s), 2 Refill(s), Pharmacy: [facility]/pharmacy #[id number], Cream, 184, cm, 03/26/21 16:03:00 EDT, Height, 92.4, kg, 03/26/21 16:03:00 EDT, Dosing Weight Start Date: 03/26/21 Stop Date: 06/18/21 Status: Ordered Ketorolac (9 sources) Nonsteroidal Anti-inflammatory Drug, Cyclooxygenase Inhibitor Start: 04-24-2021 Toradol 0 Refil l(s) Start Date: 04/24/21 Status: Ordered Start: 04-21-2021 take 1 tablet by janessa th every eight hours as needed keTORolac (TORADOL) 10 mg tablet Take 1 tablet by mouth every 8 hours as needed. 30 tablet 1 04/21/2021 Active Comment on above: Take 1 tablet by janessa th every 8 hours as needed. lisinopril 2.5 mg oral tablet (20 sources) Angiotensin Converting Enzyme Inhibitor Start: 11-07-2024 take 1 tablet by mouth once daily Start: 02-11-2024 End: 10-13-2024 lisinopril 2.5 mg oral table t Dose : 2.5 mg = 1 tab(s), Oral, qDay, new dose, # 100 tab(s), 1 Refill(s), Pharmacy: [facility]/pharmacy #[id number], 182.5, cm, 03/27/24 15:55:00 EST, Height, kg, 03/27/24 15:55:00 EST, Dosing Weight Start Date: 03/27/24 Stop Date: 10/13/24 Status: Ordered Quantity: 100.0 Unit: tab(s) Repeat number: 2 Start: 10-04-2023 End: 04-21-2024 lisinopril 5 mg oral tablet Dose : 5 mg = 1 tab(s), Oral, qDay, # 100 tab(s), 1 Refill(s), Pharmacy: [facility]/pharmacy #[id number], 184, cm, 10/04/23 16:28:00 EDT, Height, kg, 10/04/23 16:28:00 EDT, Dosing Weight Start Date: 10/04/23 Stop Date: 04/21/24 Status: Ordered Start: 12-03-2020 End: 06-12-2023 lisinopril 5 mg oral tablet Dose : 5 mg = 1 tab(s), Oral, qDay, # 90 tab(s), 3 Refill(s), Pharmacy: [facility]/pharmacy #[id number], 182.9, cm, 06/17/22 15:54:00 EST, Height, kg, 06/17/22 15:54:00 EST, Dosing Weight Start Date: 06/17/22 Stop Date: 06/12/23 Status: Ordered Start: 05-09-2020 End: 11-07-2024 take 5 mg by mouth once daily Lisinopril 10 mg tablet Discontinued 5 mg PO DAILY May 09, 2020 9:01am November 07, 2024 2:45pm Start: 05-09-2020 take 5 mg by mouth once daily Lisinopril Active 5 MG PO DAILY May 09, 2020 9:01am Start: 07-08-2018 End: 05-09-2020 take 1 tablet by mouth once daily Lisinopril 10 mg tablet Discontinued 10 mg PO DAILY July 08, 2018 1:00am May 09, 2020 9:02am take 5 mg by mouth once daily li sinopril (ZESTRIL, PRINIVIL) 20 mg tablet Take 5 mg by mouth once daily. 0 Active Comment on above: Take 5 mg by mouth o nce daily. multivit with minerals/lutein (MULTIVITAMIN 50 PLUS ORAL) (7 sources) take 1 tablet by mouth once daily multivit with minerals/lutein (MULTIVITAMIN 50 PLUS ORAL) Take 1 tablet by mouth once daily. Active take 1 tablet by mouth once yasmani y multivit with minerals/lutein (MULTIVITAMIN 50 PLUS ORAL) Take 1 tablet by mouth once daily. 0 Active Comment on above: Take 1 tablet by janessa th once daily. Multivitamin (Daily Multi-Vi tamin) tablet (5 sources) Start: 07-08-2018 Start: 07-08-2018 Multivitamin ( Daily Multi-Vitamin) tablet Active 1 {tbl} PO DAILY July 08, 2018 1:00am Start: 07-08-2018 take 1 tablet by janessa th once daily Multivitamin (Daily Multi-Vitamin) tablet Active 1 TABLET PO DAILY July 08, 2018 1:00am Multivitamin preparation (14 sources) Start: 02-24-2019 take 1 tablet by mouth once daily Multivitamin Dose = 1 tab(s), Oral, Daily, Senior, 0 Refill(s) Start Date: 02/24/19 Status: Ordered Repeat number: 1 Start: 02-24-2019 take 1 tablet by janessa th once daily Multivitamin Dose = 1 tab(s), Oral, Daily, Senior, 0 Refill(s) Start Date: 02/24/19 Status: Ordered NIFEdipine 30 mg oral tablet (20 sources) Dihydropyridine Calcium Channel Gus Start: 05-25-2024 End: 12-11-2024 NIFEdipine (Eqv-Adalat CC) 30 mg oral tablet, extended release Dose : 30 mg = 1 tab(s), Oral, qDay, # 100 tab(s), 1 Refill(s), Pharmacy: [facility]/pharmacy #[id number], 182.5, cm, 03/27/24 15:55:00 EST, Height, kg, 03/27/24 15:55:00 EST, Dosing Weight Start Date: 05/25/24 Stop Date: 12/11/24 Status: Ordered Quantity: 100.0 Unit: tab(s) Repeat number: 2 Start: 10-04-2023 End: 04-21-2024 NIFEdipine (Eqv-Adalat CC) 3 0 mg oral tablet, extended release Dose : 30 mg = 1 tab(s), Oral, qDay, # 100 tab(s), 1 Refill(s), Pharmacy: [facility]/pharmacy #[id number], 184, cm, 10/04/23 16:28:00 EDT, Height, kg, 10/04/23 16:28:00 EDT, Dosing Weight Start Date: 10/04/23 Stop Date: 04/21/24 Status: Ordered Start: 11-27-2022 take 1 tablet by janessa th every hour NIFEdipine XL (ADALAT CC) 30 mg 24 hr tablet Take 1 tablet by mouth every afternoon. 11/27/2022 Active Start: 06-17-2022 End: 06-12-2023 NIFEdipine (Eqv-Adalat CC) 3 0 mg oral tablet, extended release Dose : 30 mg = 1 tab(s), Oral, qDay, # 90 tab(s), 3 Refill(s), Pharmacy: [facility]/pharmacy #[id number], 182.9, cm, 06/17/22 15:54:00 EST, Height Start Date: 06/17/22 Stop Date: 06/12/23 Status: Ordered Start: 02-12-2022 take 1 tablet by janessa th once daily Comment on above: Take 1 tablet by janessa th every afternoon. omega-3 fatty acids (FISH OIL CONCENTRATE) 1,000 mg cap (7 sources) omega-3 fatty ac ids (FISH OIL CONCENTRATE) 1,000 mg cap Take by mouth twice daily. Active omega-3 fatty ac ids (FISH OIL CONCENTRATE) 1,000 mg cap Take by mouth twice daily. 0 Active Comment on above: Take by mouth twice daily. [place]-3 Fatty Acids (Fish Oil Concentrate) 1,000 mg capsule (5 sources) Start: 06-13-2020 take 1 capsule by mouth once daily Start: 06-13-2020 take 1 capsule by mo [facility] once daily [place]-3 Fatty Acids (Fish Oil Concentrate) 1,000 mg capsule Active 1000 mg PO DAILY June 13, 2020 1:00am Start: 06-13-2020 take 1 capsule by [facility] once daily [place]-3 Fatty Acids (Fish Oil Concentrate) 1,000 mg capsule Active 1000 MG PO DAILY June 13, 2020 1:00am ondansetron 4 mg oral tablet, disintegrating (1 source) Start: 05-04-2021 End: 05-07-2021 ondansetron 4 mg oral tablet, disintegrating Dose : 4 mg = 1 tab(s), Oral, q6h, X 3 day(s), # 12 tab(s), 0 Refill(s), 05/07/21 23:30:00 EST Start Date: 05/04/21 Stop Date: 05/07/21 Status: Ordered pantoprazole 40 mg delayed release oral tablet (20 sources) Proton Pump Inhibitor Start: 12-20-2020 End: 10-13-2024 pantoprazole 40 mg oral enteric coated tablet Dose : 40 mg = 1 tab(s), Oral, qDay, # 100 tab(s), 1 Refill(s), Pharmacy: [facility]/pharmacy #[id number], 182.5, cm, 03/27/24 15:55:00 EST, Height, kg, 03/27/24 15:55:00 EST, Dosing Weight Start Date: 03/27/24 Stop Date: 10/13/24 Status: Ordered Quantity: 100.0 Unit: tab(s) Repeat number: 2 Start: 06-13-2020 take 1 tablet by janessa once daily Start: 07-08-2018 End: 06-13-2020 take 40 mg by mouth once daily Pantoprazole [address] for susp in packet Discontinued 40 mg PO DAILY July 08, 2018 1:00am June 13, 2020 9:36am Comment on above: Take by mouth twice daily. Swallow whole. DO NOT crush or break. polyethylene glycol 3350 24329 mg powder for oral solution (8 sources) Osmotic Laxative Start: take 17 doses by mouth twice daily polyethylene glycol 3350 oral powder for reconstitution Dose : 17 gram(s) =, Oral, BID, 0 Refill(s) Start Date: 06/29/24 Status: Ordered Repeat number: 1 Start: 06-13-2020 Polyethylene Glycols (7 sources) polyethylene gly col 3350 (CLEARLAX ORAL) Take by mouth. Active polyethylene gly col 3350 (CLEARLAX ORAL) Take by mouth. 0 Active Comment on above: Take by mouth. pravastatin sodium 80 mg oral tablet (20 sources) HMG-CoA Reductase Inhibitor Start: 07-08-19 End: 10-14-19 take 1 tablet by mouth once daily Comment on above: Take 80 mg by mouth once daily. 12 hr pseudoephedrine hydrochloride 120 mg extended release oral tablet (8 sources) alpha-Adrenergic Agonist Start: 06-02-19 End: 06-02-19 take 1 tablet by mouth every twelve hours as needed for congestion Sucralfate (7 sources) Aluminum Complex SUCRALFATE ORAL Take by mouth. Active SUCRALFATE ORAL Take by mouth. 0 Active Comment on above: Take by mouth. Completed/Discontinued Medications Medication Drug Class(es) Dates Sig (Normalized) Sig (Original) [id number] 200 actuat albuterol 0.09 mg/actuat metered dose inhaler (8 sources) beta2-Adrenergic Agonist Start: 05-07-2024 End: 09-01-2024 Albuterol Sulfate 90 mcg/actuation HFA aerosol inhaler Discontinued 2 NMA INHALATION EVERY 4-6 HOURS as needed for shortness of breath or wheezing 6.7 0 June 05, 2024 9:12am September 01, 2024 8:26am amoxicillin 875 mg / clavulanate 125 mg oral tablet (9 sources) Penicillin-class Antibacterial Start: 06-02-2024 End: 06-12-2024 Amoxicillin-Pot Clavulanate 875-125 mg tablet Discontinued 1 {tbl} PO Q12H 20 10 0 June 02, 2024 1:00am June 11, 2024 1:00am June 12, 2024 1:10am Acute sinusitis, unspecified Start: 02-11-2021 End: 02-21-2021 Amoxicillin-Pot Clavulanate (Augmentin) 875-125 mg tablet Discontinued 1 {tbl} PO Q12H 20 10 0 February 11, 2021 12:00am February 20, 2021 12:00am February 21, 2021 12:01am Acute sinusitis, unspecified apixaban 5 mg oral tablet (20 sources) Factor Xa Inhibitor Start: 05-05-2021 End: 01-22-2022 take 1 tablet by mouth once daily Apixaban (Eliquis) 5 mg tablet Discontinued 5 mg PO DAILY May 05, 2021 1:00am January 22, 2022 9:11am Start: 02-26-2021 take 1 tablet by mouth twice d cam[place]y Comment on above: Take by mouth twice daily. aspirin 81 mg delayed release oral tablet (5 sources) Platelet Aggregation Inhibitor, Nonsteroidal Anti-inflammatory Drug Start: 07-08-19 End: 05-09-20 take 1 tablet by mouth once daily Aspirin (Adult Aspirin Regimen) 81 mg tablet,delayed release (DR/EC) Discontinued 81 mg PO DAILY July 08, 2018 1:00am May 09, 2020 9:00am 30 ml bupivacaine hydrochloride 5 mg/ml injection (10 sources) Amide Local Anesthetic Start: 08-05-19 End: 08-05-19 BUPivacaine (PF) 0.5 % (5 mg/mL) 1 mL injection Start: 08-04-2024 End: 08-04-2024 1 mL, Injection - FOR ORTHO USE ONLY, ONCE, 1 dose, Starting on Wed08/04/24 at 1407, Until Wed08/04/24 at 1407 Start: 04-14-2024 End: 04-14-2024 BUPivacaine (PF) 0.5 % (5 mg /mL) 1 mL injection Start: 04-14-2024 End: 04-14-2024 1 mL, Injection - FOR ORTHO USE ONLY, ONCE, 1 dose, Starting on Wed04/14/24 at 1102, Until Wed04/14/24 at 1102 Start: 12-16-2022 End: 12-16-2022 BUPivacaine (PF) 0.5 % (5 mg /mL) 1 mL injection celecoxib 200 mg oral capsule (12 sources) Nonsteroidal Anti-inflammatory Drug Start: 07-08-2018 End: 05-09-2020 take 1 capsule by mouth once daily Celecoxib 200 mg capsule Discontinued 200 mg PO DAILY July 08, 2018 1:00am May 09, 2020 9:00am Comment on above: Take 200 mg by mouth once daily. 3 ml sodium hyaluronate 10 mg/ml prefilled syringe (10 sources) Start: 08-15-2018 End: 01-17-2019 Hyaluronate Sod, Cross-Linked (Gel-One) 30 mg/3 mL syringe Discontinued 30 mg INTRAARTIC ONCE 3 0 August 15, 2018 12:00am August 15, 2018 3:50pm Unilateral primary osteoarthritis, right knee 24 hr isosorbide mononitrate 30 mg extended release oral tablet (6 sources) Nitrate Vasodilator Start: 04-24-2021 End: 01-22-2022 take 1 tablet by mouth once daily, then take 1 tablet by mouth every twenty-fou r hours Isosorbide Mononitrate 30 mg tablet extended release 24 hr Discontinued 30 mg PO DAILY May 05, 2021 1:00am January 22, 2022 9:10am levoFLOXacin 500 mg oral tablet (5 sources) Quinolone Antimicrobial Start: 05-05-2021 End: 01-22-2022 take 1 tablet by mouth once daily Levofloxacin 500 mg tablet Discontinued 500 mg PO DAILY May 05, 2021 1:00am January 22, 2022 9:10am methylPREDNISolone 4 mg oral tablet (4 sources) Corticosteroid Start: 05-07-2024 End: 06-02-2024 take 1 tablet by mouth once Methylprednisolone (Medrol (Javier)) 4 mg tablets,dose pack Discontinued 0 PO per package directions 21 0 May 07, 2024 1:00am June 02, 2024 11:07am PO PER PKG DIR oxymetazoline hydrochloride 0.5 mg/ml nasal spray (4 sources) Start: 06-02-2024 End: 06-05-2024 Oxymetazoline (Afrin (Oxymetazoline)) 0.05 % spray,non-aerosol Discontinued 3 NMA INTRANASAL Q12H as needed for nasal congestion 30 3 0 June 02, 2024 1:00am June 04, 2024 1:00am June 05, 2024 1:11am Take no longer than 3 days in a row. rivaroxaban 20 mg oral tablet (12 sources) Factor Xa Inhibitor Start: 05-09-2020 End: 02-11-2021 take 1 tablet by mouth once daily Rivaroxaban 20 mg tablet Discontinued 20 mg PO DAILY May 09, 2020 1:00am February 11, 2021 8:30am rivaroxaban (XAR ELTO) 15 mg tablet Take 20 mg by mouth once daily. Active Comment on above: Take 20 mg by mouth once daily. suvorexant 20 mg oral tablet (12 sources) Orexin Receptor Antagonist Start: 9 End: 0 take 1 tablet by mouth at bedtime Suvorexant (Belsomra) 20 mg tablet Discontinued 20 mg PO BEDTIME July 08, 2018 1:00am May 09, 2020 9:01am take 0.5 tablet by m outh at bedtime as needed suvorexant (BELSOMRA) 20 mg tab Take 1/2 tablet by mouth at bedtime as needed. Active Comment on above: Take 1/2 tablet by m outh at bedtime as needed. triamcinolone acetonide 10 mg/ml injectable suspension (10 sources) Corticosteroid Start: 08-04-2024 End: 08-04-2024 triamcinolone acetonide 10 mg injection (KeNALog 10) Start: 08-04-2024 End: 08-04-2024 10 mg, Injection - FOR ORTHO USE ONLY, ONCE, 1 dose, Starting on Wed08/04/24 at 1407, Until Wed08/04/24 at 1407 Start: 04-14-2024 End: 04-14-2024 triamcinolone acetonide 10 m g injection (KeNALog 10) Start: 04-14-2024 End: 04-14-2024 10 mg, Injection - FOR ORTHO USE ONLY, ONCE, 1 dose, Starting on Wed04/14/24 at 1102, Until Wed04/14/24 at 1102 Start: 12-16-2022 End: 12-16-2022 triamcinolone acetonide 10 m g injection (KeNALog 10) Problems Active Problems Problem Classification Problem Date Documented Date Episodic/Chronic Abdominal pain (14 sources) Abdominal pain 03-26-2021 Episodic Anxiety disorders (14 sources) Anxiety 11-20-2019 Chronic Cancer of prostate (20 sources) Carcinoma of prostate; Translations: [Malignant tumor of prostate] Onset: 06-10-19 10 Resolved : 12-20-19 15 11-20-2019 Chronic Cardiac dysrhythmias (20 sources) Atrial flutter; Translations: [Chronic atrial fibrillation] 11-21-2019 Chronic Chronic kidney disease (14 sources) Chronic kidney disease stage 3 11-20-2019 Chronic Congestive heart failure; nonhypertensive (6 sources) Chronic diastolic heart failure 10-04-2023 Chronic Diabetes mellitus without complication (14 sources) Hyperglycemia 06-07-2020 Episodic Diseases of white blood cells (14 sources) Decreased blood leukocyte number 01-17-2019 Chronic Disorders of lipid metabolism (14 sources) Hypercholesterolemia 11-20-2019 Chronic Esophageal disorders (14 sources) Gastroesophageal reflux disease 11-20-2019 Chronic Essential hypertension (13 sources) Essential hypertension; Translations: [Hypertensive disorder] 11-21-2019 Chronic Gastritis and duodenitis (14 sources) Gastritis 02-28-2021 Episodic Gastroduodenal ulcer (except hemorrhage) (14 sources) Peptic ulcer 11-20-2019 Chronic Genitourinary symptoms and ill-defined conditions (6 sources) Urinary incontinence; Translations: [Unspecified urinary incontinence] 09-14-2023 Chronic Genitourinary symptoms and ill-defined conditions (6 sources) Dysuria; Translations: [Dysuria] 09-14-2023 Episodic 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 sources) Large prostate 12-23-2017 Chronic Hypertension with complications and secondary hypertension (6 sources) Hypertensive heart failure 10-04-2023 Chronic Immunizations and screening for infectious disease (5 sources) Contact with or exposure to other viral diseases; Translations: [Exposure to confirmed case of COVID-19] 05-04-2021 Episodic Mood disorders (14 sources) Depressive disorder; Translations: [Major depression in remission] 11-20-2019 Chronic Nonspecific chest pain (12 sources) Chest pain 04-24-2021 Episodic Open wounds of extremities (11 sources) Puncture wound of hand; Translations: [Puncture wound without foreign body of unspecified hand, initial encounter] Onset: 05-21-20 23 05-21-2023 Episodic Osteoarthritis (20 sources) Arthritis; Translations: [Osteoarthritis] Onset: 04-14-20 24 11-20-2019 Chronic Comment on above: Bilateral, worse on left than right Other acquired deformities (14 sources) Spondylolisthesis 12-23-2017 Episodic Other bone disease and musculoskeletal deformities (1 source) Segmental and somatic dysfunction of lumbar region; Translations: [Segmental and somatic dysfunction of lumbar region] Onset: 10-07-19 Episodic Other circulatory disease (14 sources) Raynaud's disease 06-16-2020 Chronic Other circulatory disease (5 sources) Raynaud's phenomenon; Translations: [Raynaud's syndrome without gangrene] 01-22-2022 Chronic Other circulatory disease (10 sources) History of transient ischemic attack 06-17-2022 Episodic Other connective tissue disease (2 sources) Bilateral thumb pain; Translations: [Pain in right finger(s)] Episodic Other connective tissue disease (1 source) H/O: arthrodesis; Translations: [Arthrodesis status] Episodic Other connective tissue disease (4 sources) Hand pain; Translations: [Pain in unspecified hand] 09-05-2024 Episodic Other connective tissue disease (1 source) Pain in unspecified hand; Translations: [Pain in unspecified hand] Onset: 01-07-20 Episodic Other gastrointestinal disorders (18 sources) Constipation; Translations: [Constipation, unspecified] 06-04-2020 Episodic Other inflammatory condition of skin (14 sources) Seborrheic dermatitis 03-26-2021 Episodic Other nervous system disorders (14 sources) Paresthesia 06-04-2020 Episodic Other non-traumatic joint disorders (4 sources) Arthritis of hand 12-01-2019 Chronic Other non-traumatic joint disorders (14 sources) Arthropathy of joint of hand 11-20-2019 Chronic Other non-traumatic joint disorders (14 sources) Knee pain 08-30-2020 Episodic Other non-traumatic joint disorders (5 sources) Disorder of shoulder; Translations: [Other specified joint disorders, right shoulder] 11-15-2023 Episodic Other non-traumatic joint disorders (5 sources) Pain in right shoulder; Translations: [Right shoulder pain] Onset: 02-29-2011-15-2023 Episodic Other non-traumatic joint disorders (3 sources) Pain in left shoulder; Translations: [Left shoulder pain] Onset: 02-29-2002-27-2025 Episodic Other nutritional; endocrine; and metabolic disorders (14 sources) Overweight 05-23-2019 Episodic Other nutritional; endocrine; and metabolic disorders (7 sources) Overweight in adulthood with body mass index of 25 or more but less than 30 06-17-2022 Episodic Other screening for suspected conditions (not mental disorders or infectious disease) (15 sources) Cardiovascular stress test abnormal; Translations: [Viral screening status] 12-27-2019 Episodic Other skin disorders (14 sources) Dry skin 06-04-2020 Episodic Other upper respiratory disease (14 sources) Seasonal allergy 11-20-2019 Chronic Tri-; endo-; and myocarditis; cardiomyopathy (except that caused by tuberculosis or sexually transmitted disease) (14 sources) Cardiomyopathy 01-26-2020 Chronic Residual codes; unclassified (14 sources) Obstructive sleep apnea syndrome 11-20-2019 Chronic Residual codes; unclassified (3 sources) Hypersomnia 05-21-2023 Chronic Residual codes; unclassified (14 sources) Insomnia 11-20-2019 Episodic Residual codes; unclassified (10 sources) Immunization due 02-26-2022 Episodic Residual codes; unclassified (9 sources) Memory impairment 05-21-2023 Episodic Residual codes; unclassified (6 sources) Screening due 10-04-2023 Episodic Screening and history of mental health and substance abuse codes (10 sources) Ex-smoker 02-26-2022 Episodic Spondylosis; intervertebral disc disorders; other back problems (15 sources) Degeneration of lumbar intervertebral disc; Translations: [Other intervertebral disc degeneration, lumbar region] 05-23-2019 Chronic Spondylosis; intervertebral disc disorders; other back problems (20 sources) Backache; Translations: [Sciatica] 05-23-2019 Episodic Transient cerebral ischemia (4 sources) Transient cerebral ischemia 12-23-2017 Chronic Comment on above: no residual problems Unclassified (14 sources) Ear canal finding 08-30-2020 Unclassified (14 sources) Eye glasses, device (physical object) 12-23-2017 Unclassified (20 sources) Patient encounter status 08-08-2020 Unclassified (6 sources) Drug therapy finding 10-04-2023 Unclassified (6 sources) History of lumbar fusion 09-02-2023 Unclassified (6 sources) Hypercoagulable state due to atrial fibrillation 10-04-2023 Unclassified (1 source) Osteoarthritis of carpometacarpal (CMC) joint of thumb Unclassified (4 sources) M18.9 - Osteoarthritis of first carpometacarpal joint, unspecified Viral infection (4 sources) Disease caused by 2019-nCoV; Translations: [COVID-19] 05-07-2024 Episodic Viral infection (1 source) COVID-19; Translations: [COVID-19] Onset: 05-07-20 24 Past or Other Problems Problem Classification Problem Date Documented Da te Episodic/Chronic Gastrointestinal hemorrhage (6 sources) Gastrointestinal hemorrhage; Translations: [Hemorrhage of anus and rectum] Onset: 5 06-27-2024 Episodic Other upper respiratory infections (6 sources) Acute sinusitis; Translations: [Acute sinusitis, unspecified] Onset: 5 02-11-2021 Episodic Residual codes; unclassified (1 source) Pain, unspecified; Translations: [Pain, unspecified] Onset: 4 Episodic Unclassified (5 sources) Appendiceal Removal 12-11-2021 Unclassified (5 sources) Gallbladder Removal 12-11-2021 Unclassified (5 sources) spinal fusion 12-11-2021 Unclassified (5 sources) tonsilectomy 12-11-2021 Results Test Name Value Interpretation Reference Range Facility Orthopedic Visit Reporton Orthopedic Visit Report [facility] [address] [place] [address] OFFICE VISIT Date of Service: 02/28/25 MR#: [id number] Acct: [id number] Name: LEE TADEO Rep #: [id number] : 1940 Provider: CAL starr Age/Sex: 84/M Location: [facility] [place] Status: Signed Intake Vital Signs 09/01/24 08:14 02/28/25 09:56 Height 6 ft 6 ft Weight: 197 lb BMI 26.7 Intake Visit Reasons: LEFT SHOULDER Chief Complaint: Left shoulder pain Accompanied by: Self Is patient in pain?: No Allergies venom-honey bee Allergy (Verified 02/28/25 09:58) Hives hydrocodone Adverse Reaction (Verified 02/28/25 09:58) Upset Stomach oxycodone Adverse Reaction (Verified 02/28/25 09:58) Upset Stomach Medications ???Medication ???Instructions ???Recorded ???Confirmed ???Type citalopram 40 mg tablet 20 mg PO DAILY 07/08/18 02/28/25 H istory multivitamin (Daily Multi-Vitamin 1 tab PO DAILY 07/08/18 02/28/25 History tablet) pravastatin 80 mg tablet 80 mg PO DAILY 07/08/18 02/28/25 H istory omega-3 fatty acids 1,000 mg 1,000 mg PO DAILY 06/13/20 5 History capsule (Fish Oil Concentrate) pantoprazole 40 mg tablet,delayed 40 mg PO DAILY 06/13/20 02/28/25 History release polyethylene glycol 3350 17 17 g PO DAILY 06/13/20 02/28/25 Hi story gram/dose oral powder (Miralax) apixaban 5 mg tablet (Eliquis) 5 mg PO BID 01/22/22 02/28/25 Hist ory nifedipine 30 mg tablet,extended 30 mg PO DAILY #90 tabs 02/12/22 1 Rx release pseudoephedrine 60 mg-DM 15 1 tab PO Q4-6H PRN cold symptoms 0 06/02/24 02/28/25 Rx mg-guaifenesin 400 mg tablet #20 tabs (Capmist DM) pseudoephedrine HCl 120 mg 120 mg PO Q12H PRN nasal 06/02/24 02/28/25 Rx tablet,extended release (Nasal congestion #30 tabs Decongestant (pseudoephedrine)) lisinopril 2.5 mg tablet 2.5 mg PO QDAY 11/07/24 02/28/25 H istory Have you fallen in the past year?: Yes PFSH Medical History Hand pain Impingement of right shoulder Right shoulder pain Dysuria Urinary incontinence Prostate cancer A-fib H/O TIA (transient ischemic attack) and stroke hypertension tonsilectomy Appendiceal Removal Gallbladder Removal spinal fusion Surgical History H/O colonoscopy History of appendectomy History of cholecystectomy History of back surgery ( 12/2017) History of left knee replacement Social History Smoking Status: Former smoker alcohol intake: never substance use type: does not use HPI LEFT SHOULDER Details: This documentation accurately reflects the service provided and the decisions made by me, CAL Walton 02/28/25 0956. Part of today???s visit was documented by Sarmad Saba MA, acting as scribe. Aden is a pleasant 84-year-old gentleman here today for new complaint of L shoulder pain x 1 week. Attributes to sleeping on L side at night secondary to R shoulder sx. No identified injuries, may have aggravated after doing wall push ups. Sx intermittent sx day and night. No numb/tingling. Denies any prior injuries or surgeries to this arm. R shoulder sx aggravated x 2-3 days, attributes to weather change. no numbness or tingling. Reports he got good relief with cortisone injection in August of this year and would be interested in pursuing another injection today. No new injuries. Tylenol helps with some of the symptoms, positioning and altering sleep positioning helps some Patient has been done therapy for other issues and reports good knowledge of shoulder range of motion and strengthening exercises. ROS Const All systems reviewed are unremarkable except as noted in H and other (A O x 3, no apparent distress. No recent illness.) ENT Denies dizziness Card Denies chest pain, Denies dyspnea, Denies edema and Reports other (No palpitations) Resp Denies cough, Denies dyspnea and Reports other (No recent URI) GI Reports system reviewed and no additional complaints, except as documented, Denies nausea and Denies vomiting Musc Reports as per HPI, Reports arthralgias and Reports limited range of motion (mild limitations bilat shoulders) Neuro No dizziness Psych Reports system reviewed and no additional complaints, except as documented Ryan/Lymph Denies easy bleeding and Denies easy bruising Ortho Exam General General: Yes no acute distress and Yes well groomed Neurologic: Yes alert and Yes oriented x3 Psychologic: Yes reasonable and appropriate Right Shoulder SHOULDER: Inspection: Skin is pink, warm, dry and intact. There is no obvious inflammation or discoloration present. ROM: Forward flexio (more content not included)... Normal [facility] Shoulder min 2 Viewson 02-28 Shoulder min 2 Views [facility] Imaging Services [address] [place] [address] Shoulder min 2 Views MR#: [id number] Acct: [id number] Name: LEE TADEO Rep #: [id number] : 1940 M 84 From: Demetrio Mcgill MD PCP: Dr. Ana Shaikh DO Status: DEP AMB Study: Shoulder min 2 Views Date of Exam: 02/28/25 Exam# [id number] Ordering Dr: Delia Mendez EXAM: XR Left Shoulder Complete, 2 or More Views CLINICAL INDICATION: SHOULDER PAIN, CHRONIC TECHNIQUE: Two or more views of the left shoulder. COMPARISON: No relevant prior studies available. FINDINGS: BONES/JOINTS: Mild degenerative changes of the acromioclavicular joint. No acute fracture. No dislocation. SOFT TISSUES: Unremarkable. RAD/Shoulder min 2 Views IMPRESSION: Degenerative changes as above. Reading Location: [id number] CC: BEHAVIORAL SCIENTIST-Justin Mendez; Dr. Ana Shaikh DO Evaporator Helper: Signed Normal [facility] Plastic Surgery Visit Report on 01-09-2025 Plastic Surgery Visit Report [facility] Plastic Reconstructive Surgery [address], [address] [place] [address] OFFICE VISIT Date of Service: 01/09/25 MR#: [id number] Acct: [id number] Name: LEE TADEO Rep #: [id number] : 1940 Provider: Dr. Tashi Beasley MD Age/Sex: 84/M Location: [place] [address] Status: Signed Intake Vital Signs 09/01/24 08:14 Height 6 ft Intake Visit Reasons: 3 month follow up Chief Complaint: FOLLOW UP-PAIN IN BOTH THUMBS Is patient in pain?: Yes Allergies venom-honey bee Allergy (Verified 01/09/25 14:32) Hives hydrocodone Adverse Reaction (Verified 01/09/25 14:32) Upset Stomach oxycodone Adverse Reaction (Verified 01/09/25 14:32) Upset Stomach Medications ???Medication ???Instructions ???Recorded ???Confirmed ???Type citalopram 40 mg tablet 20 mg PO DAILY 07/08/18 01/09/25 H istory multivitamin (Daily Multi-Vitamin 1 tab PO DAILY 07/08/18 01/09/25 History tablet) pravastatin 80 mg tablet 80 mg PO DAILY 07/08/18 01/09/25 H istory omega-3 fatty acids 1,000 mg 1,000 mg PO DAILY 06/13/20 5 History capsule (Fish Oil Concentrate) pantoprazole 40 mg tablet,delayed 40 mg PO DAILY 06/13/20 01/09/25 History release polyethylene glycol 3350 17 17 g PO DAILY 06/13/20 01/09/25 Hi story gram/dose oral powder (Miralax) apixaban 5 mg tablet (Eliquis) 5 mg PO BID 01/22/22 01/09/25 Hist ory nifedipine 30 mg tablet,extended 30 mg PO DAILY #90 tabs 02/12/22 0 01/09/25 Rx release pseudoephedrine 60 mg-DM 15 1 tab PO Q4-6H PRN cold symptoms 0 06/02/24 01/09/25 Rx mg-guaifenesin 400 mg tablet #20 tabs (Capmist DM) pseudoephedrine HCl 120 mg 120 mg PO Q12H PRN nasal 06/02/24 01/09/25 Rx tablet,extended release (Nasal congestion #30 tabs Decongestant (pseudoephedrine)) lisinopril 2.5 mg tablet 2.5 mg PO QDAY 11/07/24 01/09/25 H istory Have you fallen in the past year?: No Nurse's Note: pt would like to discuss surgery, injections not helping. PFSH Medical History Hand pain Impingement of right shoulder Right shoulder pain Dysuria Urinary incontinence Prostate cancer A-fib H/O TIA (transient ischemic attack) and stroke hypertension tonsilectomy Appendiceal Removal Gallbladder Removal spinal fusion Surgical History H/O colonoscopy History of appendectomy History of cholecystectomy History of back surgery ( 12/2017) History of left knee replacement Social History Smoking Status: Former smoker alcohol intake: never substance use type: does not use HPI 3 month follow up Details: The patient is an 84-year-old male presenting with CMC joint arthritis. He reports worsening pain in the left CMC joint, which is more severe than the right, particularly during the spring and summer months when usage increases. Pain with axial grind is noted in both joints, with the left being more affected. The patient uses Voltaren gel for pain relief, which provides some benefit. He previously used a splint but discontinued it due to skin irritation, and he is considering purchasing a better-fitting splint. The patient denies having diabetes and reports no issues with previous bilateral injections. Attestation: Documentation on this patient encounter was supported using ambient scribe technology/ voice AI technology. The patient consented to recording for the purpose of documenting the encounter. Provider reviewed content of the generated note prior to signature. Current encounter, 09 January 2025: Doing well overall but had minimal relief from the CMC joint injections with thumb base. Would like to explore surgical options. He is looking for the fastest recovery as he needs to help his this winter navigate some health issues as well. He is asking about a specific type of CMC arthroplasty where he is able to move immediately. Exam Details Bilateral Upper Extremity Inspection: Swelling observed in both CMC joints, worse on the left than the right. Palpation: Pain with axial grind in the left CMC joint, and a little pain with axial grind on the right. Motor: Able to bend and extend all MP, PIP, and DIP joints. Sensory: Intact to light touch on the radial and ulnar borders. Vascular: Finger tips are warm and well perfused with greater than 2 second capillary refill. Coding Level of Care Code Off vis,est,level 2 Diagnoses CMC arthritis, thumb, degenerative M18.9 Assessment and Plan (No Qualifiers) Assessment and Plan (1) CMC arthritis, thumb, degenerative: Status: Acute Comment: Bilateral, worse on left than right Plan: Reviewed x-rays with the patient Although x-rays did not demonstrate (more content not included)... Normal [facility] Plastic Surgery Visit Report on 11-07-2024 Plastic Surgery Visit Report [facility] Plastic Reconstructive Surgery [address], [address] [place], [place] [address] OFFICE VISIT Date of Service: 11/07/24 MR#: [id number] Acct: [id number] Name: LEE TADEO Rep #: [id number] : 1940 Provider: Dr. Tashi Beasley MD Age/Sex: 84/M Location: [place] [address] Status: Signed Intake Vital Signs 09/01/24 08:14 Height 6 ft Intake Visit Reasons: 2 MO F/U Chief Complaint: FOLLOW UP-PAIN IN BOTH THUMBS Is patient in pain?: Yes (5-610 IN BOTH THUMBS) Allergies venom-honey bee Allergy (Verified 11/07/24 14:44) Hives hydrocodone Adverse Reaction (Verified 11/07/24 14:44) Upset Stomach oxycodone Adverse Reaction (Verified 11/07/24 14:44) Upset Stomach Medications ???Medication ???Instructions ???Recorded ???Confirmed ???Type citalopram 40 mg tablet 20 mg PO DAILY 07/08/18 11/07/24 H istory multivitamin (Daily Multi-Vitamin 1 tab PO DAILY 07/08/18 11/07/24 History tablet) pravastatin 80 mg tablet 80 mg PO DAILY 07/08/18 11/07/24 H istory omega-3 fatty acids 1,000 mg 1,000 mg PO DAILY 06/13/20 5 History capsule (Fish Oil Concentrate) pantoprazole 40 mg tablet,delayed 40 mg PO DAILY 06/13/20 11/07/24 History release polyethylene glycol 3350 17 17 g PO DAILY 06/13/20 11/07/24 Hi story gram/dose oral powder (Miralax) apixaban 5 mg tablet (Eliquis) 5 mg PO BID 01/22/22 11/07/24 Hist ory nifedipine 30 mg tablet,extended 30 mg PO DAILY #90 tabs 02/12/22 0 11/07/24 Rx release pseudoephedrine 60 mg-DM 15 1 tab PO Q4-6H PRN cold symptoms 0 06/02/24 11/07/24 Rx mg-guaifenesin 400 mg tablet #20 tabs (Capmist DM) pseudoephedrine HCl 120 mg 120 mg PO Q12H PRN nasal 06/02/24 11/07/24 Rx tablet,extended release (Nasal congestion #30 tabs Decongestant (pseudoephedrine)) lisinopril 2.5 mg tablet 2.5 mg PO QDAY 11/07/24 11/07/24 H istory Have you fallen in the past year?: No Nurse's Note: pt here complaining of pain in both thumbs 5-6/10. would like injections [facility] Medical History (Updated 09/05/24 @ 17:[address] Tashi Beasley MD) Hand pain Impingement of right shoulder Right shoulder pain Dysuria Urinary incontinence Prostate cancer A-fib H/O TIA (transient ischemic attack) and stroke hypertension tonsilectomy Appendiceal Removal Gallbladder Removal spinal fusion Surgical History H/O colonoscopy History of appendectomy History of cholecystectomy History of back surgery ( 12/2017) History of left knee replacement Social History Smoking Status: Former smoker alcohol intake: never substance use type: does not use HPI 2 MO F/U Details: The patient is an 84-year-old male presenting with CMC joint arthritis. He reports worsening pain in the left CMC joint, which is more severe than the right, particularly during the spring and summer months when usage increases. Pain with axial grind is noted in both joints, with the left being more affected. The patient uses Voltaren gel for pain relief, which provides some benefit. He previously used a splint but discontinued it due to skin irritation, and he is considering purchasing a better-fitting splint. The patient denies having diabetes and reports no issues with previous bilateral injections. Attestation: Documentation on this patient encounter was supported using ambient scribe technology/ voice AI technology. The patient consented to recording for the purpose of documenting the encounter. Provider reviewed content of the generated note prior to signature. ROS Details - Musculoskeletal: Reports worsening pain in the left CMC joint, more severe than the right, with pain during axial grind. Reports swelling in both hands, more pronounced on the left. - Endocrine: Denies diabetes. Exam Details Bilateral Upper Extremity Inspection: Swelling observed in both CMC joints, worse on the left than the right. Palpation: Pain with axial grind in the left CMC joint, and a little pain with axial grind on the right. Motor: Able to bend and extend all MP, PIP, and DIP joints. Sensory: Intact to light touch on the radial and ulnar borders. Vascular: Finger tips are warm and well perfused with greater than 2 second capillary refill. Office Meds Kenalog 10 mg/mL suspension for injection Performing Provider: Tashi Beasley MD Performing Location: [facility] Administered by: Tashi Beasley MD on 11/07/24 15:16 Dose Route Admin Location Dispensed Lot Number Expiration Date [facility] Elvi ufacturer 10 mg intralesional thumb 1 mL [id number] 02/07/27 5973-2046-16 [facility] Comments: bupivicaine 0.25% [facility] 5162-9988-82 lot [id number] exp Coding Level o (more content not included)... Normal [facility] Misc LCon 10-13-2024 LC Order Number [id number] [facility] Comment on above: Order Comment: Phosp horylated Tau 217, LC Test [id number] Talked to Crystal from [facility]'s office since MISC was ordered and there isn't a test for the requested Misc but Acc 2198 & 2203 are the tests that make up requested test, nurse said if Neel wants different tests then she will let us know LR 10/09/24 1308 Performed By: #### 9 [id number] #### [address] [place], [place] [address] LC Test Name Phosphorylated Tau 217 [facility] Comment on above: Order Comment: Phosp horylated Tau 217, LC Test 230006 Talked to Crystal from [facility]'s office since MISC was ordered and there isn't a test for the requested Misc but Acc 2198 & 2203 are the tests that make up requested test, nurse said if Neel wants different tests then she will let us know LR 10/09/24 1308 Performed By: #### 9 45042 #### [address] [place], [place] [address] B1WBon 10-12-2024 Vitamin B1 Whl Bld 196.9 nmol/L Normal 66.5-200.0 [facility] Comment on above: Result Comment: This test was developed and its performance characteristics determined by [facility]. It has not been cleared or approved by the Food and Drug Administration. Performed At: [address] [id number] Howie Brito MD Ph:[phone] Performed By: #### C BC, ADIFF, ANEU, TSH, FT4, CMP, GFR, LIPID, PSA, A1C, [id number] ####[facility] [place], [place] [address]#### B12 ####[facility] [place] [address] Misc LCon 10-12-2024 [facility] Test Result COMMENT Normal [facility] Comment on above: Order Comment: Phosp horylated Tau 217, LC Test [id number] Talked to Crystal from Neel's office since MISC was ordered and there isn't a test for the requested Misc but Acc 2198 & 2203 are the tests that make up requested test, nurse said if Neel wants different tests then she will let us know LR 10/09/24 1308 Result Comment: Test Ordered: [id number] p-[id number] 0.21 [H ] pg/mL L9 Reference Range: 0.00-0.18 This test was developed and its performance characteristics determined by [employer]. It has not been cleared or approved by the Food and Drug Administration. Clinical cutoff value was established using samples from a patient cohort characterized with amyloid PET data. A p-tmi930 value of >0.18 is a reported surrogate marker for beta amyloid pathology, and can be used to facilitate biological identification of Alzheimer's disease (1). p-xee711 has also been used in clinical trials to monitor patients on anti-amyloid therapy (2,3). Test performed by Sh[employer]ulse chemiluminescent enzyme immunoassay (CLEIA). Values obtained with different methods cannot be used interchangeably. The validated limit of quantification is 0.06 pg/mL. Assay detection limit is 0.03 pg/mL. Footnotes Comment L9 1. Chris Ayala, et al. "Diagnostic Accuracy of a Plasma Phosphorylated Tau 217 Immunoassay for Alzheimer Disease Pathology." SHASHI neurology (2023). 2. Chris Ayala et al. "Differential roles of A42/40, p-dlg595 and p-awe064 for Alzheimer's trial selection and disease monitoring." Nature medicine 28.12 (2021): 2236-2521. 3. Savanah RINCON, Porsha M, Silvia SC, et al. "Association of Donanemab Treatment With Exploratory Plasma Biomarkers in Early Symptomatic Alzheimer Disease: A Secondary Analysis of the TRAILBLAZER-ALZ Randomized Clinical Trial". SHASHI Neurol. 2021;79(12):5917-6732. Performed At: [facility] [id number] Mali Singleton PhD Ph:[phone] Performed At: [email or web address] [address] [place] [id number] Brendan Shaw MD Ph:[phone] Performed By: #### 9 97951 #### [address] [address] LC Order Number [id number] [facility] Comment on above: Order Comment: Beta Amyloid 42/40 Ratio, LC Test [id number] Talked to Crystal from [facility]'s office since MISC was ordered and there isn't a test for the requested Misc but Acc 2198 & 2203 are the tests that make up requested test, nurse said if Neel wants different tests then she will let us know LR 10/09/24 1308 Performed By: #### 9 94381 #### [address] [address] LC Test Name Beta Amyloid 42/40 Ratio [facility] Comment on above: Order Comment: Beta Amyloid 42/40 Ratio, LC Test [id number] Talked to Crystal from [facility]'s office since MISC was ordered and there isn't a test for the requested Misc but Acc 2198 & 2203 are the tests that make up requested test, nurse said if Neel wants different tests then she will let us know LR 10/09/24 1308 Performed By: #### 9 [address]3898 #### [address] [address] Misc LCon 10-11-2024 Misc Test Result COMMENT [facility] Comment on above: Order Comment: Beta Amyloid 42/40 Ratio, LC Test [id number] Talked to Crystal from [facility]'s office since MISC was ordered and there isn't a test for the requested Misc but Acc 2198 & 2203 are the tests that make up requested test, nurse said if Neel wants different tests then she will let us know LR 10/09/24 1308 Result Comment: Test Ordered: [id number] Beta Amyloid 42/40 Ratio Beta-amyloid 42/40 Ratio 0.117 Reference Range: >0.102 This test was developed and its performance characteristics determined by [facility]. It has not been cleared or approved by the Food and Drug Administration. Beta-amyloid 42 22.59 pg/mL BN This test was developed and its performance characteristics determined by [facility]. It has not been cleared or approved by the Food and Drug Administration. Beta-amyloid 40 193.82 pg/mL BN This test was developed and its performance characteristics determined by [facility]. It has not been cleared or approved by the Food and Drug Administration. Plasma beta-amyloid 1-42/1-40 ratios less than or equal to 0.102 suggest a higher probability of a patient being clinically diagnosed with Alzheimer's Disease (AD), while values above 0.102 suggest a lower probability of AD diagnosis. Precise plasma testing of Beta Amyloid 42 and Beta Amyloid 40 has demonstrated comparable effectiveness to traditional cerebrospinal fluid testing and amyloid positron emission tomography (PET) scans. When assessing the risk of AD pathology as the underlying cause for mild cognitive impairment (MCI) or dementia, it is important to consider various factors such as medical and family history, nutritional deficiency biomarkers, neuroimaging, and physical, neurological, and neuropsychological examinations. Methodology: [employer] Chemiluminescence Enzyme Immunoassay (CLEIA). Values obtained with different methods cannot be used interchangeably. Performed At: [facility] [id number] Mali Singleton PhD Ph:[phone] Performed At: [facility] [id number] Howie Brito MD Ph:[phone] Performed By: #### 9 57706 #### Jake [address] [address] XR RIBS 2 VIEWS RIGHT/PA ALISHA ST(AO)on 10-10-2024 XR RIBS 2 VIEWS RIGHT/PA CHEST(AO) ORIGINAL EXAMINATION: 5 XRAY VIEWS OF RIGHT RIBS WITH 2 XRAY VIEWS OF THE CHEST 10/06/2024 8:46 am COMPARISON: None. HISTORY: ORDERING SYSTEM PROVIDED HISTORY: Reason for Exam: cervical subluxation FINDINGS: Minimally displaced fracture of the lateral right 10th rib observed. Remaining right ribs appear radiographically intact. There is no pleural effusion or pneumothorax. IMPRESSION: Minimally displaced fracture lateral right 10th rib. Interpreted by: Anoop Bonilla DO Preliminary Report By: Anoop Bonilla DO Electronically signed By Anoop Bonilla DO Dictated Date: 10/10/2024 4:34:01 PM Prelim Date: 10/10/2024 4:35:53 PM Sign Date: 10/10/2024 4:35:53 PM Ordering Provider: VERONICA Sultana [facility] .Auto Diffon 10-09-2024 Basophil, Absolute 0.0 10 3/mcL Normal 0.0-0.3 [facility] Comment on above: Performed By: #### C BC, ADIFF, ANEU, TSH, FT4, CMP, GFR, LIPID, PSA, A1C, [id number] ####[place] [address]#### B12 ####[place] [address] Lymphocyte, Absolute 1.1 10 3/mcL Normal 0.9-4.3 [place] Comment on above: Performed By: #### C BC, ADIFF, ANEU, TSH, FT4, CMP, GFR, LIPID, PSA, A1C, [id number] ####[place] [address]#### B12 ####[place] [address] Monocyte, Absolute 0.4 10 3/mcL Normal 0.1-1.4 [facility] Comment on above: Performed By: #### C BC, ADIFF, ANEU, TSH, FT4, CMP, GFR, LIPID, PSA, A1C, 060974 ####[place] [address]#### B12 ####[place] [address] .Auto DiffOrdered By: SYSTEM SYSTEM on 10-09-2024 Basophils/100 WBC (Bld) 0.7 % Normal 0.0-2.5 A O Workflow SS Comment on above: Performed By: #### C BC, ADIFF, ANEU, TSH, FT4, CMP, GFR, LIPID, PSA, A1C, 036948 ####[place] [address]#### B12 ####[address] [address] Eosinophil, Absolute 0.1 103/mcL Normal 0.0-0.7 AO Workflow SS Comment on above: Performed By: #### C BC, ADIFF, ANEU, TSH, FT4, CMP, GFR, LIPID, PSA, A1C, 216702 ####[place] [address]#### B12 ####[address] [address] Eosinophils/100 WBC (Bld) 1.9 % Normal 0.0-6.0 AO Workflow SS Comment on above: Performed By: #### C BC, ADIFF, ANEU, TSH, FT4, CMP, GFR, LIPID, PSA, A1C, 115773 ####[place] [address]#### B12 ####[address] [address] Lymphocytes/100 WBC (Bld) 24.2 % Normal 20.0-40.0 AO Workflow SS Comment on above: Performed By: #### C BC, ADIFF, ANEU, TSH, FT4, CMP, GFR, LIPID, PSA, A1C, 767816 ####[place] [address]#### B12 ####[address] [address] Monocytes/100 WBC (Bld) 8.7 % Normal 2.0-13.0 A O Workflow SS Comment on above: Performed By: #### C BC, ADIFF, ANEU, TSH, FT4, CMP, GFR, LIPID, PSA, A1C, 309459 ####[place] [address]#### B12 ####[address] [address] Neutrophils/100 WBC (Bld) 64.5 % Normal 50.0-75.0 AO Workflow SS Comment on above: Performed By: #### C BC, ADIFF, ANEU, TSH, FT4, CMP, GFR, LIPID, PSA, A1C, 721534 ####[place] [place] [address]#### B12 ####[place] [address] .GFROrdered By: SYSTEM SYSTE [employer] on 10-09-2024 Estimated Glomerular Filtration Rate 54 ml/min/1.73sqm Normal AO Chemistry S Comment on above: Interpretive Data: Stages of Chronic Kidney Disease (CKD) Stage Description eGFR(ml/min/1.73 sq.m.) CKD 1 Normal kidney function or >=90 normal kindney function with possible kidney damage (ex. Proteinuria) CKD 2 Kidney damage with mild loss 60-89 of kidney function CKD 3a Mild to moderate loss of kidney 45-59 function CKD 3b Moderate to severe loss of 30-44 of kindey function CKD 4 Severe loss of kidney function 15-29 CKD 5 Kidney failure <15 Note: ( live 06/27/2024) the eGFR calculation was updated to the 2020 CKD-EPI creatinine equation without a race factor to calculate the eGFR results. Result Comment: Stages of Chronic Kidney Disease (CKD) Stage Description eGFR(ml/min/1.73 sq.m.) CKD 1 Normal kidney function or >=90 normal kindney function with possible kidney damage (ex. Proteinuria) CKD 2 Kidney damage with mild loss 60-89 of kidney function CKD 3a Mild to moderate loss of kidney 45-59 function CKD 3b Moderate to severe loss of 30-44 of kindey function CKD 4 Severe loss of kidney function 15-29 CKD 5 Kidney failure <15 Note: ( live 06/27/2024) the eGFR calculation was updated to the 2020 CKD-EPI creatinine equation without a race factor to calculate the eGFR results. Performed By: #### C BC, ADIFF, ANEU, TSH, FT4, CMP, GFR, LIPID, PSA, A1C, [id number] ####Jake [address] [place], [place] [address]#### B12 ####[address] [address] .NEUABSon 10-09-2024 Neutrophil, Absolute 2.9 10 3/mcL Normal 2.3-8.1 [place] Comment on above: Performed By: #### C BC, ADIFF, ANEU, TSH, FT4, CMP, GFR, LIPID, PSA, A1C, [id number] ####[address] [place], [place] [address]#### B12 ####[address] [address] [id number] By: SYSTEM SYSTEM on 10-09-2024 Glucose [Mass/Vol] 100 mg/dL Normal AO Alisha shannan S Comment on above: Interpretive Data: E stimated average glucose (eAG) is a calculated value from Hemoglobin A1C and is factory representative of the average blood glucose level in the last 2-3 month period. Normal range: less than 114 mg/dL Result Comment: Lorena mated Average Glucose calculated by equation ((28.7xA1C)-46.7) Estimated average glucose (eAG) is a calculated value from Hemoglobin A1C and is factory representative of the average blood glucose level in the last 2-3 month period. Normal range: less than 114 mg/dL Performed By: #### C BC, ADIFF, ANEU, TSH, FT4, CMP, GFR, LIPID, PSA, A1C, [id number] ####[place] [address]#### B12 ####[place] [address] HbA1c (Bld) [Mass fraction] 5.1 % Normal 4.3-6.4 AO ADM SS Comment on above: Performed By: #### C BC, ADIFF, ANEU, TSH, FT4, CMP, GFR, LIPID, PSA, A1C, [id number] ####[address] [place], [place] [address]#### B12 ####[place] [address] [id number] By: SYSTEM SYSTEM on 10-09-2024 Cobalamin (Vitamin B12) [Mass/Vol] 706 pg/mL Normal 211-911 AH ADM SS Comment on above: Performed By: #### C BC, ADIFF, ANEU, TSH, FT4, CMP, GFR, LIPID, PSA, A1C, [id number] ####[place] [address]#### B12 ####[place] [address] CBCOrdered By: SYSTEM SYSTEM on 10-09-2024 Erythrocyte distribution width (RBC) [Ratio] 14.8 % Normal 11.5-15.5 AO Workflow SS Comment on above: Performed By: #### C BC, ADIFF, ANEU, TSH, FT4, CMP, GFR, LIPID, PSA, A1C, [id number] ####[place] [address]#### B12 ####[place] [address] Hematocrit (Bld) [Volume fraction] 34.7 % Low 40.0-52.0 AO Workflow SS Comment on above: Performed By: #### C BC, ADIFF, ANEU, TSH, FT4, CMP, GFR, LIPID, PSA, A1C, [id number] ####[place] [address]#### B12 ####[place] [address] MCH (RBC) [Entitic mass] 40.1 pg High 27.0-33.0 AO Workflow SS Comment on above: Performed By: #### C BC, ADIFF, ANEU, TSH, FT4, CMP, GFR, LIPID, PSA, A1C, [id number] ####[place] [address]#### B12 ####[place] [address] MCHC 36.9 G/dL High 32.0-36.0 AO Workflow SS Comment on above: Performed By: #### C BC, ADIFF, ANEU, TSH, FT4, CMP, GFR, LIPID, PSA, A1C, [id number] ####[place] [address]#### B12 ####[place] [address] MCV (RBC) [Entitic vol] 108.7 fL High 81.0-100.0 A O Workflow SS Comment on above: Performed By: #### C BC, ADIFF, ANEU, TSH, FT4, CMP, GFR, LIPID, PSA, A1C, 438996 ####[place] [address]#### B12 ####[place] [address] Platelet mean volume (Bld) [Entitic vol] 8.9 fL Normal 6.4-10.5 AO Workflow SS Comment on above: Performed By: #### C BC, ADIFF, ANEU, TSH, FT4, CMP, GFR, LIPID, PSA, A1C, [id number] ####[place] [address]#### B12 ####[place] [address] CBCon 10-09-2024 Hgb 12.8 G/dL Low 13.0-17.5 [facility] Comment on above: Performed By: #### C BC, ADIFF, ANEU, TSH, FT4, CMP, GFR, LIPID, PSA, A1C, [id number] ####[place] [address]#### B12 ####[place] [address] Platelet 253 10 3/mcL Normal 150-450 [facility] Comment on above: Performed By: #### C BC, ADIFF, ANEU, TSH, FT4, CMP, GFR, LIPID, PSA, A1C, [id number] ####[place] [address]#### B12 ####[place] [address] RBC 3.19 10 6/mcL Low 4.50-6.00 [facility] Comment on above: Performed By: #### C BC, ADIFF, ANEU, TSH, FT4, CMP, GFR, LIPID, PSA, A1C, [id number] ####[place] [address]#### B12 ####[place] [address] WBC 4.4 10 3/mcL Low 4.5-10.8 [facility] Comment on above: Performed By: #### C BC, ADIFF, ANEU, TSH, FT4, CMP, GFR, LIPID, PSA, A1C, [id number] ####[place] [address]#### B12 ####[address] [address] CMPon 10-09-2024 Albumin Level 3.7 G/dL Normal 3.4-4.8 [facility] Comment on above: Performed By: #### C BC, ADIFF, ANEU, TSH, FT4, CMP, GFR, LIPID, PSA, A1C, [id number] ####[place] [address]#### B12 ####[place] [address] ALT [Catalytic activity/Vol] 33 U/L Normal 16-63 [facility] Comment on above: Performed By: #### C BC, ADIFF, ANEU, TSH, FT4, CMP, GFR, LIPID, PSA, A1C, [id number] ####[place] [address]#### B12 ####[place] [address] AST [Catalytic activity/Vol] 32 U/L Normal 10-40 [facility] Comment on above: Performed By: #### C BC, ADIFF, ANEU, TSH, FT4, CMP, GFR, LIPID, PSA, A1C, [id number] ####[place] [address]#### B12 ####[place] [address] Bili Total 1.3 mg/dL High 0.2-1.0 [facility] Comment on above: Result Comment: Use of this assay is not recommended for patients undergoing treatment with eltrombopag due to the potential for falsely elevated results. Performed By: #### C BC, ADIFF, ANEU, TSH, FT4, CMP, GFR, LIPID, PSA, A1C, [id number] ####[address] [address]#### B12 ####[address] [address] BUN/Creatinine Ratio 17 ratio Normal 7-27 [facility] Comment on above: Performed By: #### C BC, ADIFF, ANEU, TSH, FT4, CMP, GFR, LIPID, PSA, A1C, [id number] ####[place] [address]#### B12 ####[place] [address] Total Protein 6.4 G/dL Normal 6.4-8.2 [facility] Comment on above: Performed By: #### C BC, ADIFF, ANEU, TSH, FT4, CMP, GFR, LIPID, PSA, A1C, [id number] ####[place] [address]#### B12 ####[place] [address] CMPOrdered By: SYSTEM SYSTEM on 10-09-2024 Albumin/Globulin [Mass ratio] 1.4 {ratio} Normal 1.1-2.5 AO ADM SS Comment on above: Performed By: #### C BC, ADIFF, ANEU, TSH, FT4, CMP, GFR, LIPID, PSA, A1C, [id number] ####[place] [address]#### B12 ####[place] [address] ALP [Catalytic activity/Vol] 104 U/L Normal 40-135 AO ADM SS Comment on above: Performed By: #### C BC, ADIFF, ANEU, TSH, FT4, CMP, GFR, LIPID, PSA, A1C, [id number] ####[place] [address]#### B12 ####[address] [address] Calcium [Mass/Vol] 9.2 mg/dL Normal 8.4-10.2 AO ADM SS Comment on above: Performed By: #### C BC, ADIFF, ANEU, TSH, FT4, CMP, GFR, LIPID, PSA, A1C, [id number] ####[place] [address]#### B12 ####[place] [address] Chloride [Moles/Vol] 106 mmol/L Normal 98-107 AO A DM SS Comment on above: Performed By: #### C BC, ADIFF, ANEU, TSH, FT4, CMP, GFR, LIPID, PSA, A1C, 818114 ####[place] [address]#### B12 ####[place] [address] CO2 [Moles/Vol] 29 mmol/L Normal 23-31 AO ADM SS Comment on above: Performed By: #### C BC, ADIFF, ANEU, TSH, FT4, CMP, GFR, LIPID, PSA, A1C, [id number] ####[place] [address]#### B12 ####[place] [address] Creatinine [Mass/Vol] 1.32 mg/dL High 0.67-1.17 AO ADM SS Comment on above: Performed By: #### C BC, ADIFF, ANEU, TSH, FT4, CMP, GFR, LIPID, PSA, A1C, 738161 ####[place] [address]#### B12 ####[place] [address] Electrolyte Balance 5.0 mEq/L Normal 4.0-15.0 AO AD M SS Comment on above: Performed By: #### C BC, ADIFF, ANEU, TSH, FT4, CMP, GFR, LIPID, PSA, A1C, 837753 ####[place] [address]#### B12 ####[place] [address] Globulin 2.7 G/dL Normal 2.7-4.4 AO ADM SS Comment on above: Performed By: #### C BC, ADIFF, ANEU, TSH, FT4, CMP, GFR, LIPID, PSA, A1C, 281934 ####[place] [address]#### B12 ####[address] [address] Glucose [Mass/Vol] 68 mg/dL Low 83-110 AO ADM SS Comment on above: Performed By: #### C BC, ADIFF, ANEU, TSH, FT4, CMP, GFR, LIPID, PSA, A1C, 236089 ####[place] [address]#### B12 ####[address] [address] Potassium [Moles/Vol] 5.5 mmol/L High 3.5-5.1 AO ADM SS Comment on above: Performed By: #### C BC, ADIFF, ANEU, TSH, FT4, CMP, GFR, LIPID, PSA, A1C, [id number] ####[place] [address]#### B12 ####[address] [address] Sodium [Moles/Vol] 140 mmol/L Normal 136-145 AO ADM SS Comment on above: Performed By: #### C BC, ADIFF, ANEU, TSH, FT4, CMP, GFR, LIPID, PSA, A1C, 729203 ####[place] [address]#### B12 ####[address] [address] Urea nitrogen [Mass/Vol] 22 mg/dL High 7-18 AO ADM SS Comment on above: Performed By: #### C BC, ADIFF, ANEU, TSH, FT4, CMP, GFR, LIPID, PSA, A1C, 116212 ####[place] [address]#### B12 ####[address] [address] [id number] By: SYSTEM SYSTEM on 10-09-2024 Free T4 [Mass/Vol] 0.90 ng/dL Normal 0.76-1.46 AO ADM SS Comment on above: Performed By: #### C BC, ADIFF, ANEU, TSH, FT4, CMP, GFR, LIPID, PSA, A1C, [id number] ####[address]ake [address] [place], [place] [address]#### B12 ####[place] [address] LABORATORYOrdered By: Pernell Warner on 10-09-2024 Albumin DL <= 20 mg/L (U) [Mass/Vol] 5.6 mg/L Invalid Interpretation Code AO ADM SS Albumin/Creatinine DL <= 20 mg/L (U) [Mass ratio] 14 mg/G Normal 0 - 30 mg/G AO Chemistry S Creatinine (U) [Mass/Vol] 41.0 mg/dL Normal 40.0 - 278.0 mg/dL AO ADM SS LABORATORYOrdered By: SYSTEM SYSTEM on 10-09-2024 Albumin BCP dye [Mass/Vol] 3.7 G/dL Normal 3.4 - 4.8 G/dL AO ADM SS ALT With P-5'-P [Catalytic activity/Vol] 33 U/L Normal 16 - 63 U/L AO ADM SS AST With P-5'-P [Catalytic activity/Vol] 32 U/L Normal 10 - 40 U/L AO ADM SS Basophils (Bld) [#/Vol] 0.0 103/mcL Normal 0.0 - 0.3 10^3/mcL AO Workflow SS Bilirubin [Mass/Vol] 1.3 mg/dL High 0.2 - 1 .0 mg/dL AO ADM SS Comment on above: Interpretive Data: U se of this assay is not recommended for patients undergoing treatment with eltrombopag due to the potential for falsely elevated results. Hemoglobin (Bld) [Mass/Vol] 12.8 G/dL Low 13.0 - 17.5 G/dL AO Workflow SS Lymphocytes (Bld) [#/Vol] 1.1 103/mcL Normal 0.9 - 4.3 10^3/mcL AO Workflow SS Monocytes (Bld) [#/Vol] 0.4 103/mcL Normal 0.1 - 1.4 10^3/mcL AO Workflow SS Neutrophils (Bld) [#/Vol] 2.9 103/mcL Normal 2.3 - 8.1 10^3/mcL AO Workflow SS Platelets (Bld) [#/Vol] 253 103/mcL Normal 150 - 450 10^3/mcL AO Workflow SS Prostate specific Ag [Mass/Vol] 1.70 ng/mL Normal 0.00 - 4.00 ng/mL AO ADM SS Protein [Mass/Vol] 6.4 G/dL Normal 6.4 - 8.2 G/dL AO ADM SS RBC (Bld) [#/Vol] 3.19 106/mcL Low 4.50 - 6.0 0 10^6/mcL AO Workflow SS Urea nitrogen/Creatinine [Mass ratio] 17 ratio Normal 7 - 27 ratio AO ADM SS WBC (Bld) [#/Vol] 4.4 103/mcL Low 4.5 - 10.8 10^3/mcL AO Workflow SS LIPIDOrdered By: Kami hays on 10-09-2024 Cholesterol [Mass/Vol] 150 mg/dL Normal 0-200 AO ADM SS Comment on above: Interpretive Data: C holesterol Reference Interval: Less than 200 Desirable 200-239 Borderline high risk 240 and above High risk Result Comment: Chol esterol Reference Interval: Less than 200 Desirable 200-239 Borderline high risk 240 and above High risk Performed By: #### C BC, ADIFF, ANEU, TSH, FT4, CMP, GFR, LIPID, PSA, A1C, [id number] ####Jake [address] [address]#### B12 ####[address] [address] Cholesterol in HDL [Mass/Vol] 62 mg/dL High 40-60 AO ADM SS Comment on above: Performed By: #### C BC, ADIFF, ANEU, TSH, FT4, CMP, GFR, LIPID, PSA, A1C, [id number] ####Jake [address] [address]#### B12 ####[address] [address] Cholesterol in LDL [Mass/Vol] 59 mg/dL Normal 0-130 AO ADM SS Comment on above: Performed By: #### C BC, ADIFF, ANEU, TSH, FT4, CMP, GFR, LIPID, PSA, A1C, [id number] ####Jake [address] [place] [id number]#### B12 ####[place] [address] Triglyceride [Mass/Vol] 143 mg/dL Normal 0-150 A O ADM SS Comment on above: Interpretive Data: T riglyceride Reference Interval: Less than 150 Normal 150-199 Borderline high risk 200-499 High risk 500 or higher Very high risk Result Comment: Trig lyceride Reference Interval: Less than 150 Normal 150-199 Borderline high risk 200-499 High risk 500 or higher Very high risk Performed By: #### C BC, ADIFF, ANEU, TSH, FT4, CMP, GFR, LIPID, PSA, A1C, [id number] ####Jake [address] [place] [address]#### B12 ####[place] [address] MALBRon 10-09-2024 U Creatinine 41.0 mg/dL Normal 40.0-278.0 [facility] Comment on above: Performed By: #### M ALBR ####Jake [address] [place], [place] [address] U Microalb 5.6 mg/L Normal [facility] Comment on above: Performed By: #### M ALBR ####Jake [address] [place], [place] [address] U Ratio Alb/Cre 14 mg/G Normal 0-30 [facility] Comment on above: Performed By: #### M ALBR ####Jake [address] [place], [place] [address] PSAon 10-09-2024 Prostate Specific Antigen 1.70 ng/mL Normal 0.00-4.00 [facility] Comment on above: Performed By: #### C BC, ADIFF, ANEU, TSH, FT4, CMP, GFR, LIPID, PSA, A1C, [id number] ####Jake [address] [place], [place] [address]#### B12 ####[place] [address] TSHOrdered By: SYSTEM SYSTEM on 10-09-2024 TSH Qn 1.02 m[IU]/L Normal 0.36-3.74 AO ADM SS Comment on above: Performed By: #### C BC, ADIFF, ANEU, TSH, FT4, CMP, GFR, LIPID, PSA, A1C, [id number] ####Jake [address] [place], [place] [address]#### B12 ####[address] [address] Hand Min 3 Viewson 5 Hand Min 3 Views [facility] Imaging Services [address] [place] [address] Hand Min 3 Views MR#: [id number] Acct: [id number] Name: LEE TADEO Rep #: [id number] : 1940 M 84 From: Jose perry MD PCP: Dr. Ana Shaikh DO Status: DEP AMB Study: Hand Min 3 Views Date of Exam: 09/05/24 Exam# [id number] Ordering Dr: Tashi Beasley MD PROCEDURE: HAND MIN 3 VIEWS 09/05/2024 REASON FOR EXAM: PAIN TECHNIQUE: 3 view(s) of the right hand COMPARISON: None. FINDINGS: Mild degenerative joint disease of the carpal, carpometacarpal and interphalangeal joints. Mild osteopenia. No fracture or dislocation is seen. No lytic or blastic aggressive bone lesion is identified. RAD/Hand Min 3 Views IMPRESSION: No radiographic evidence of an acute bone abnormality. Reading Location: [place] [address] CC: Dr. Ana Shaikh DO; Dr. Tashi Beasley MD Evaporator Helper: Signed Normal [facility] Hand Min 3 Views [facility] Imaging Services [address] [place], [place] [id number] Hand Min 3 Views MR#: [id number] Acct: [id number] Name: LEE TADEO Rep #: [id number] : 1940 M 84 From: Jose perry MD PCP: Dr. Ana Shaikh DO Status: DEP AMB Study: Hand Min 3 Views Date of Exam: 09/05/24 Exam# [id number] Ordering Dr: Tashi Beasley MD PROCEDURE: HAND MIN 3 VIEWS 09/05/2024 REASON FOR EXAM: HAND PAIN TECHNIQUE: 2 view(s) of the left hand COMPARISON: None FINDINGS: Normal visualized carpal bones. Normal first metacarpus. Normal second through fifth metacarpi. Normal phalanges. There is no demonstrated fracture. Normal carpal articulations. There is narrowing of the carpometacarpal (CMC) articulation of the thumb. Normal metacarpophalangeal (MCP) joint of the thumb. There is slight narrowing of the interphalangeal (IP) joint of the thumb. Normal second through fifth carpometacarpal (CMC) joints. Normal second through fifth metacarpophalangeal (MCP) joints. There is narrowing of the proximal and to greater extent distal interphalangeal joints with minimal erosive changes. RAD/Hand Min 3 Views IMPRESSION: Findings of degenerative osteoarthritis. No acute fracture or dislocation. Reading Location: [place] [address] CC: Dr. Ana Shaikh DO; Dr. 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 Tashi Beasley MD Age/Sex: 84/M Location: [place] [address] Status: Signed Intake Vital Signs 06/19/24 17:30 09/01/24 08:14 Height 6 ft 6 ft Intake Visit Reasons: L WRIST PAIN Chief Complaint: L wrist pain Is patient in pain?: Yes Allergies venom-honey bee Allergy (Verified 09/05/24 14:06) Hives hydrocodone Adverse Reaction (Verified 09/05/24 14:06) Upset Stomach oxycodone Adverse Reaction (Verified 09/05/24 14:06) Upset Stomach Medications ???Medication ???Instructions ???Recorded ???Confirmed ???Type citalopram 40 mg tablet 20 mg PO DAILY 07/08/18 09/05/24 H istory multivitamin (Daily Multi-Vitamin 1 tab PO DAILY 07/08/18 09/05/24 History tablet) pravastatin 80 mg tablet 80 mg PO DAILY 07/08/18 09/05/24 H istory lisinopril 10 mg tablet 5 mg PO DAILY 05/09/20 09/05/24 Hi story omega-3 fatty acids 1,000 mg 1,000 mg PO DAILY 06/13/20 5 History capsule (Fish Oil Concentrate) pantoprazole 40 mg tablet,delayed 40 mg PO DAILY 06/13/20 09/05/24 History release polyethylene glycol 3350 17 17 g PO DAILY 06/13/20 09/05/24 Hi story gram/dose oral powder (Miralax) apixaban 5 mg tablet (Eliquis) 5 mg PO BID 01/22/22 09/05/24 Hist ory nifedipine 30 mg tablet,extended 30 mg PO DAILY #90 tabs 02/12/22 0 09/05/24 Rx release pseudoephedrine 60 mg-DM 15 1 tab PO Q4-6H PRN cold symptoms 0 06/02/24 09/05/24 Rx mg-guaifenesin 400 mg tablet #20 tabs (Capmist DM) pseudoephedrine HCl 120 mg 120 mg PO Q12H PRN nasal 06/02/24 09/05/24 Rx tablet,extended release (Nasal congestion #30 tabs Decongestant (pseudoephedrine)) Have you fallen in the past year?: No Nurse's Note: pt was told that he has arthritis in bilateral thumbs, has had previous steroid injections. Last injection was last month by Dr. Suarez in [place]. Would like to discuss non surgical options for pain relief. [facility] Medical History (Updated 09/05/24 @ 17:[address] Tashi Beasley MD) Hand pain Impingement of right shoulder Right shoulder pain Dysuria Urinary incontinence Prostate cancer A-fib H/O TIA (transient ischemic attack) and stroke hypertension tonsilectomy Appendiceal Removal Gallbladder Removal spinal fusion Surgical History H/O colonoscopy History of appendectomy History of cholecystectomy History of back surgery ( 12/2017) History of left knee replacement Social History Smoking Status: Former smoker alcohol intake: never substance use type: does not use HPI L WRIST PAIN Details: Lee Tadeo is a delightful 84-year-old male with history of bilateral thumb based arthritis. He is right-handed, and is retired. He was formerly in the [employer]. Patient reports that has been seeing a physician in [place] for thumb base CMC arthritis, which causes him more pain in the left. The pain is sharp and severe and worsened by movements and improved with rest and elevation. He recently had an injection in the left thumb base approximately 1 month ago with some improvement. He also started a left upper extremity CMC arthritis brace which helped with the left base of thumb pain as well. He is not interested in surgery and would like to continue injections, but would like follow-up closer to his home here in [place]. Exam Details Exam of the left upper limb revealed: ([+]) Grind test with crepitus ([+]) Pain with CMCJ reduction test. ([-]) Saw test. ([-]) Hyperextension deformity of MCPJ of the thumb. Exam of the right upper limb revealed: ([+]) Grind test. ([+]) Pain with CMCJ reduction test. ([-]) Saw test. ([-]) Hyperextension deformity of MCPJ of the thumb. 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 We discussed the surgery in general which is removal of the trapezium and potentially a wedge of trapezoid followed by reconstruction using a stabilization method to prevent thumb subsidence. Patient is not interested in surgery at this time. He would like to continue (more content not included)... Normal [facility] Orthopedic Visit Reporton Orthopedic Visit Report [facility] [address] [place] [address] [address] [place] [address] OFFICE VISIT Date of Service: 09/01/24 MR#: [id number] Acct: [id number] Name: LEE TADEO Rep #: [id number] : 1940 Provider: CAL starr Age/Sex: 84/M Location: [facility] Status: Signed with Addenda ADDENDUM by CAL Mendez on 09/20/24 at 0944 Office Injections/Aspiration s Procedure Detail Procedure performed by: Delia Mendez Lot number: [id number] Unit Manager Rn: [id number] date: 09/21/25 Assessment and Plan Assessment and Plan (1) Impingement of right shoulder: Status: Acute Orders: Orders Kenalog Injection 09/01/24 M25.811 - Other specified joint disorders, right shoulder Medications: New Kenalog (triamcinolone acetonide) 40 mg intra-articular ONCE 1 mL 0RF NS M25.811 - Other specified joint disorders, right shoulder 09/20/24 0944 Date Delia Mendez cc: * Signed Intake Vital Signs 06/19/24 17:30 09/01/24 08:14 Height 6 ft 6 ft Intake Visit Reasons: RIGHT SHOULDER Chief Complaint: right shoulder Is patient in pain?: Yes (right shoulder) Pain scale (1-10): 2 Allergies venom-honey bee Allergy (Verified 09/01/24 08:25) Hives hydrocodone Adverse Reaction (Verified 09/01/24 08:25) Upset Stomach oxycodone Adverse Reaction (Verified 09/01/24 08:25) Upset Stomach Medications ???Medication ???Instructions ???Recorded ???Confirmed ???Type citalopram 40 mg tablet 20 mg PO DAILY 07/08/18 06/22/24 H istory multivitamin (Daily Multi-Vitamin 1 tab PO DAILY 07/08/18 06/22/24 History tablet) pravastatin 80 mg tablet 80 mg PO DAILY 07/08/18 06/22/24 H istory lisinopril 10 mg tablet 5 mg PO DAILY 05/09/20 06/22/24 Hi story omega-3 fatty acids 1,000 mg 1,000 mg PO DAILY 06/13/20 5 History capsule (Fish Oil Concentrate) pantoprazole 40 mg tablet,delayed 40 mg PO DAILY 06/13/20 06/22/24 History release polyethylene glycol 3350 17 17 g PO DAILY 06/13/20 06/22/24 Hi story gram/dose oral powder (Miralax) apixaban 5 mg tablet (Eliquis) 5 mg PO BID 01/22/22 06/22/24 Hist ory nifedipine 30 mg tablet,extended 30 mg PO DAILY #90 tabs 02/12/22 0 06/22/24 Rx release pseudoephedrine 60 mg-DM 15 1 tab PO Q4-6H PRN cold symptoms 0 06/02/24 06/22/24 Rx mg-guaifenesin 400 mg tablet #20 tabs (Capmist DM) pseudoephedrine HCl 120 mg 120 mg PO Q12H PRN nasal 06/02/24 06/22/24 Rx tablet,extended release (Nasal congestion #30 tabs Decongestant (pseudoephedrine)) Have you fallen in the past year?: No PFSH Medical History Impingement of right shoulder Right shoulder pain Dysuria Urinary incontinence Prostate cancer A-fib H/O TIA (transient ischemic attack) and stroke hypertension tonsilectomy Appendiceal Removal Gallbladder Removal spinal fusion Surgical History H/O colonoscopy History of appendectomy History of cholecystectomy History of back surgery ( 12/2017) History of left knee replacement Social History Smoking Status: Former smoker alcohol intake: never substance use type: does not use HPI RIGHT SHOULDER Chief Complaint: right shoulder Details: This documentation accurately reflects the service provided and the decisions made by me, Delia Mendez, CAL 09/01/24 0814. Part of today???s visit was documented by [ ], acting as scribe. LEE TADEO is a 84 year old M here today for right shoulder pain. Pt. advises he has been experiencing right shoulder pain for several years. He denies injury or prior surgery, he states it has just been over-used. He has been seen by a doc at the [facility] who did Xrays and he was told he has arthritis not a rotator cuff issue. He states it is an achy pain after using it. Agree with above. Aden is a pleasant 84 yo gentleman presenting for eval of R shoulder pain, no injury. Hx shoulder pain for years, denies hx trauma or surgery to this shoulder or arm. Takes Tylenol prn with minimal improvements. + recent flare with increased activity of mowing the lawn and vacuuming. RH dominant. Denies prior injections. ROS Const All systems reviewed are unremarkable except as noted in H and other (A O x 3, no apparent distress. No recent illness.) ENT Denies dizziness Card Denies chest pain, Denies dyspnea, Denies edema and Reports other (No palpitations) Resp Denies cough, Denies dyspnea and Reports other (No recent URI) GI Reports system reviewed and no additional complaints, except as documented, Denies nausea and Denies (more content not included)... Normal [facility] CNOVon 08-04-2024 CNOV Office Visit (JOSE ) LEE TADEO ([id number]) 1940 M Date Time Provider Department 08/04/24 11:45 AM RADHA SUAREZ During your visit today, we recorded the following information about you: Radha Suarez DO 08/04/2024 2:08 PM Signed Follow Up Visit Small Joint Arthro/Inj: bilateral thumb CMC 08/04/2024 2:07 PM The procedure site was prepped in the usual sterile fashion. Medications (Right): 10 mg triamcinolone acetonide 10 mg/mL Medications (Left): 10 mg triamcinolone acetonide 10 mg/mL Anesthetics (Right): 1 mL BUPivacaine (PF) 0.5 % (5 mg/mL) Anesthetics (Left): 1 mL BUPivacaine (PF) 0.5 % (5 mg/mL) Outcome: tolerated well, no immediate complications Post-injection instructions were reviewed with the patient and the patient voiced understanding of these instructions. Informed Consent Consent Obtained: Verbal [place] Protocol A moment to CARE was completed. SIGN IN Sign in communication not applicable due to emergent procedure. Personnel directly involved with the procedure wore the appropriate PPE. Special Equipment: N/A Patient/Surrogate Stated/Verified: Patient name, Date of , Relevant allergies and Intended procedure TIME OUT Relevant labs, photos, and/or imaging studies have been reviewed. Intended patient and procedure match source documents. Consent obtained and matches the intended procedure. Correct side/site marked and visible. Medications required for procedure verified. Fire risk assessed and interventions discussed. No implant(s) inserted. SIGN OUT All specimens correctly labeled and sent. All instruments, equipment, possible retained foreign bodies accounted for. The post-procedure POC has been communicated to the patient or surrogate. Chief Complaint Lee Tadeo is a 84 year old male who presents today for follow up office visit. Patient presents with: Right Wrist - Follow Up, Pain Left Wrist - Follow Up, Pain History of Present Illness PAIN EVALUATION 08/04/2024 1216 Pain Level: 1 increases with use Pain Location: -- bilateral thumbs Duration Amount of Time: -- ongoing Frequency: Intermittent Intervention/Comfort measure: -- cortisone injection HPI: Lee Tadeo is a 84 year old male for a follow up visit bilateral thumb pain. Patient is here for cmc injection, last injection was 4 months ago and that gave moderate relief. Patient states as long as he does not use hands often he does well. Pain history is noted as above. Is there any overall improvement in your condition? Yes, with injections Any new injury, since being seen last: No REVIEW OF SYMPTOMS: Patient did not have, and does not currently have, any weight loss, malaise, fever, chills, headache, chest pain, chest pressure, palpitations, cough, shortness of breath, orthopnea, paroxsymal nocturnal dyspnea, nausea, vomiting, diarrhea, constipation, melena, hematochezia, urinary difficulties, prolonged bleeding, easily bruising, heat or cold intolerance, new onset joint pain or swelling, new onset extremity weakness or numbness, new onset auditory or visual disturbances, lightheadedness, dizziness, partial loss of consciousness or full loss of consciousness. Current Outpatient Medications Medication Sig NIFEdipine XL (ADALAT CC) 30 mg 24 hr tablet Take 1 tablet by mouth every afternoon. citalopram (CELEXA) 20 mg tablet Take 20 mg by mouth once daily. (Patient taking differently: Take 30 mg by mouth once daily.) apixaban (ELIQUIS) 5 mg tab(s) Take by mouth twice daily. polyethylene glycol 3350 (CLEARLAX ORAL) Take by mouth. omega-3 fatty acids (FISH OIL CONCENTRATE) 1,000 mg cap Take by mouth twice daily. multivit with minerals/lutein (MULTIVITAMIN 50 PLUS ORAL) Take 1 tablet by mouth once daily. pravastatin (PRAVACHOL) 80 mg tablet Take 80 mg by mouth once daily. CPAP acetaminophen (TYLENOL) 500 mg tablet Take 1,000 mg by mouth as needed. DOCOSAHEXANOIC ACID/EPA (FISH OIL ORAL) Take 1,200 mg by mouth once daily. PANTOPRAZOLE 40 MG TAB, DELAYED RELEASE Take by mouth twice daily. Swallow whole. DO NOT crush or break. esomeprazole (NEXIUM) 40 mg capsule Take 1 capsule by mouth once daily. keTORolac (TORADOL) 10 mg tablet Take 1 tablet by mouth every 8 hours as needed. (Patient not taking: Reported on 01/29/2022) SUCRALFATE ORAL Take by mouth. (Patient not taking: Reported on 01/29/2022) CLENPIQ 10 mg-3.5 gram -12 gram/160 mL soln Use as instructed. citalopram (CELEXA) 40 mg tablet Take 40 mg by mouth once daily. (Patient not taking: Reported on 01/29/2022) lisinopril (ZESTRIL, PRINIVIL) 5 mg tablet Take 5 mg by mouth once daily. (Patient not taking: Reported on 08/04/2024) rivaroxaban (XARELTO) 15 mg tablet Take 20 mg by mouth once daily. (Patient not taking: Reported on 01/29/2022) suvorexant (BELSOMRA) 20 mg tab Take 1 (more content not included)... Normal [facility] Small Joint Arthro/Inj: bila teral thumb CMCon 08-04-2024 Radha Suarez DO 08/04/2024 2:08 PM Small Joint Arthro/Inj: bilateral thumb CMC 08/04/2024 2:07 PM The procedure site was prepped in the usual sterile fashion. Medications (Right): 10 mg triamcinolone acetonide 10 mg/mL Medications (Left): 10 mg triamcinolone acetonide 10 mg/mL Anesthetics (Right): 1 mL BUPivacaine (PF) 0.5 % (5 mg/mL) Anesthetics (Left): 1 mL BUPivacaine (PF) 0.5 % (5 mg/mL) Outcome: tolerated well, no immediate complications Post-injection instructions were reviewed with the patient and the patient voiced understanding of these instructions. Informed Consent Consent Obtained: Verbal [place] Protocol A moment to CARE was completed. SIGN IN Sign in communication not applicable due to emergent procedure. Personnel directly involved with the procedure wore the appropriate PPE. Special Equipment: N/A Patient/Surrogate Stated/Verified: Patient name, Date of , Relevant allergies and Intended procedure TIME OUT Relevant labs, photos, and/or imaging studies have been reviewed. Intended patient and procedure match source documents. Consent obtained and matches the intended procedure. Correct side/site marked and visible. Medications required for procedure verified. Fire risk assessed and interventions discussed. No implant(s) inserted. SIGN OUT All specimens correctly labeled and sent. All instruments, equipment, possible retained foreign bodies accounted for. The post-procedure POC has been communicated to the patient or surrogate. [facility] .Auto Diffon 07-06-2024 Basophil, Absolute 0.0 10 3/mcL Normal 0.0-0.2 [facility] Comment on above: Performed By: #### A ERASMO, MORPH, A1C, CMP, GFR, LIPID, PSA, VIDH, CBC, ADIFF ####[facility] [place], [place] [address] Basophils/100 WBC (Bld) 0.9 % Normal 0.0-2.5 [facility] Comment on above: Performed By: #### A ERASMO, MORPH, A1C, CMP, GFR, LIPID, PSA, VIDH, CBC, ADIFF ####[address] [address] Eosinophil, Absolute 0.1 10 3/mcL Normal 0.0-0.7 [place] Comment on above: Performed By: #### A ERASMO, MORPH, A1C, CMP, GFR, LIPID, PSA, VIDH, CBC, ADIFF ####[address] [address] Eosinophils/100 WBC (Bld) 2.2 % Normal 0.0-7.0 [facility] Comment on above: Performed By: #### A ERASMO, MORPH, A1C, CMP, GFR, LIPID, PSA, VIDH, CBC, ADIFF ####[address] [address] Lymphocyte, Absolute 1.0 10 3/mcL Normal 0.9-4.3 [place] Comment on above: Performed By: #### A ERASMO, MORPH, A1C, CMP, GFR, LIPID, PSA, VIDH, CBC, ADIFF ####[address] [address] Lymphocytes/100 WBC (Bld) 22.8 % Normal 20.0-40.0 [facility] Comment on above: Performed By: #### A ERASMO, MORPH, A1C, CMP, GFR, LIPID, PSA, VIDH, CBC, ADIFF ####[address] [address] Monocyte, Absolute 0.3 10 3/mcL Normal 0.1-1.4 [facility] Comment on above: Performed By: #### A ERASMO, MORPH, A1C, CMP, GFR, LIPID, PSA, VIDH, CBC, ADIFF ####[address] [address] Monocytes/100 WBC (Bld) 6.5 % Normal 2.0-13.0 [facility] Comment on above: Performed By: #### A ERASMO, MORPH, A1C, CMP, GFR, LIPID, PSA, VIDH, CBC, ADIFF ####[facility] [place], [place] [address] Neutrophils/100 WBC (Bld) 67.6 % Normal 50.0-75.0 [facility] Comment on above: Performed By: #### A ERASMO, MORPH, A1C, CMP, GFR, LIPID, PSA, VIDH, CBC, ADIFF ####[facility] [place], [place] [address] .GFRon 07-06-2024 Estimated Glomerular Filtration Rate 53 ml/min/1.73sqm Normal [facility] Comment on above: Result Comment: Stages of Chronic Kidney Disease (CKD) Stage Description eGFR(ml/min/1.73 sq.m.) CKD 1 Normal kidney function or >=90 normal kindney function with possible kidney damage (ex. Proteinuria) CKD 2 Kidney damage with mild loss 60-89 of kidney function CKD 3a Mild to moderate loss of kidney 45-59 function CKD 3b Moderate to severe loss of 30-44 of kindey function CKD 4 Severe loss of kidney function 15-29 CKD 5 Kidney failure <15 Note: (go live 2024) the eGFR calculation was updated to the 2020 CKD-EPI creatinine equation without a race factor to calculate the eGFR results. Performed By: #### A ERASMO, MORPH, A1C, CMP, GFR, LIPID, PSA, VIDH, CBC, ADIFF #### [place] [id number] [place], [place] [address] .Morphon 07-06-2024 Platelet Estimate Normal Normal [facility] Comment on above: Performed By: #### A ERASMO, MORPH, A1C, CMP, GFR, LIPID, PSA, VIDH, CBC, ADIFF ####[facility] [place], [place] [address] .NEUABSon 07-06-2024 Neutrophil, Absolute 3.0 10 3/mcL Normal 2.3-8.1 [place] Comment on above: Performed By: #### A ERASMO, MORPH, A1C, CMP, GFR, LIPID, PSA, VIDH, CBC, ADIFF ####[place] [address] [place], [place] [address] A1Con 07-06-2024 Glucose [Mass/Vol] 85 mg/dL Normal [facility] Comment on above: Result Comment: Lorena mated Average Glucose calculated by equation ((28.7xA1C)-46.7) Estimated average glucose (eAG) is a calculated value from Hemoglobin A1C and is factory representative of the average blood glucose level in the last 2-3 month period. Normal range: less than 114 mg/dL Performed By: #### A ERASMO, MORPH, A1C, CMP, GFR, LIPID, PSA, VIDH, CBC, ADIFF ####[address] [address] HbA1c (Bld) [Mass fraction] 4.6 % Normal 4.3-6.4 [facility] Comment on above: Performed By: #### A ERASMO, MORPH, A1C, CMP, GFR, LIPID, PSA, VIDH, CBC, ADIFF ####[address] [address] CBCon 07-06-2024 Erythrocyte distribution width (RBC) [Ratio] 15.0 % Normal 11.5-15.5 [facility] Comment on above: Performed By: #### A ERASMO, MORPH, A1C, CMP, GFR, LIPID, PSA, VIDH, CBC, ADIFF #### [address] [address] [address] Hematocrit (Bld) [Volume fraction] 34.5 % Low 40.0-52.0 [facility] Comment on above: Performed By: #### A ERASMO, MORPH, A1C, CMP, GFR, LIPID, PSA, VIDH, CBC, ADIFF #### [address] [address] Hgb 12.3 G/dL Low 13.0-17.5 [facility] Comment on above: Performed By: #### A ERASMO, MORPH, A1C, CMP, GFR, LIPID, PSA, VIDH, CBC, ADIFF #### [address] [address] MCH (RBC) [Entitic mass] 37.9 pg High 27.0-33.0 [facility] Comment on above: Performed By: #### A ERASMO, MORPH, A1C, CMP, GFR, LIPID, PSA, VIDH, CBC, ADIFF #### [address] [address] MCHC 35.5 G/dL Normal 32.0-36.0 [facility] Comment on above: Performed By: #### A ERASMO, MORPH, A1C, CMP, GFR, LIPID, PSA, VIDH, CBC, ADIFF #### [address] [address] MCV (RBC) [Entitic vol] 106.9 fL High 81.0-100.0 [facility] Comment on above: Performed By: #### A ERASMO, MORPH, A1C, CMP, GFR, LIPID, PSA, VIDH, CBC, ADIFF #### [address] [address] Platelet 243 10 3/mcL Normal 150-450 [facility] Comment on above: Performed By: #### A ERASMO, MORPH, A1C, CMP, GFR, LIPID, PSA, VIDH, CBC, ADIFF #### [address] [address] Platelet mean volume (Bld) [Entitic vol] 9.6 fL Normal 6.4-10.5 [facility] Comment on above: Performed By: #### A ERASMO, MORPH, A1C, CMP, GFR, LIPID, PSA, VIDH, CBC, ADIFF #### [address] [address] RBC 3.23 10 6/mcL Low 4.50-6.00 [facility] Comment on above: Performed By: #### A ERASMO, MORPH, A1C, CMP, GFR, LIPID, PSA, VIDH, CBC, ADIFF #### [address] [address] WBC 4.5 10 3/mcL Normal 4.5-10.8 [facility] Comment on above: Performed By: #### A ERASMO, MORPH, A1C, CMP, GFR, LIPID, PSA, VIDH, CBC, ADIFF #### [address] [address] CMPon 07-06-2024 Albumin Level 3.7 G/dL Normal 3.4-4.8 [facility] Comment on above: Performed By: #### A ERASMO, MORPH, A1C, CMP, GFR, LIPID, PSA, VIDH, CBC, ADIFF #### [address] [address] Albumin/Globulin [Mass ratio] 1.3 {ratio} Normal 1.1-2.5 [facility] Comment on above: Performed By: #### A ERASMO, MORPH, A1C, CMP, GFR, LIPID, PSA, VIDH, CBC, ADIFF #### [address] [address] ALP [Catalytic activity/Vol] 109 U/L Normal 40-135 [facility] Comment on above: Performed By: #### A ERASMO, MORPH, A1C, CMP, GFR, LIPID, PSA, VIDH, CBC, ADIFF #### [address] [address] ALT [Catalytic activity/Vol] 29 U/L Normal 16-63 [facility] Comment on above: Performed By: #### A ERASMO, MORPH, A1C, CMP, GFR, LIPID, PSA, VIDH, CBC, ADIFF #### [address] [address] AST [Catalytic activity/Vol] 33 U/L Normal 10-40 [facility] Comment on above: Performed By: #### A ERASMO, MORPH, A1C, CMP, GFR, LIPID, PSA, VIDH, CBC, ADIFF #### [address] [address] Bili Total 1.3 mg/dL High 0.2-1.0 [facility] Comment on above: Result Comment: Use of this assay is not recommended for patients undergoing treatment with eltrombopag due to the potential for falsely elevated results. Performed By: #### A ERASMO, MORPH, A1C, CMP, GFR, LIPID, PSA, VIDH, CBC, ADIFF #### [address] [address] BUN/Creatinine Ratio 20 ratio Normal 7-27 [facility] Comment on above: Performed By: #### A ERASMO, MORPH, A1C, CMP, GFR, LIPID, PSA, VIDH, CBC, ADIFF #### [address] [address] Calcium [Mass/Vol] 9.0 mg/dL Normal 8.4-10.2 [facility] Comment on above: Performed By: #### A ERASMO, MORPH, A1C, CMP, GFR, LIPID, PSA, VIDH, CBC, ADIFF #### [place] [address] Chloride [Moles/Vol] 102 mmol/L Normal 98-107 [facility] Comment on above: Performed By: #### A ERASMO, MORPH, A1C, CMP, GFR, LIPID, PSA, VIDH, CBC, ADIFF #### [place] [address] CO2 [Moles/Vol] 29 mmol/L Normal 23-31 [facility] Comment on above: Performed By: #### A ERASMO, MORPH, A1C, CMP, GFR, LIPID, PSA, VIDH, CBC, ADIFF #### [address] [address] Creatinine [Mass/Vol] 1.33 mg/dL High 0.70-1.30 [facility] Comment on above: Result Comment: Test ing performed on Siemens Dimension EXL analyzer using a modified kinetic [place] technique. Performed By: #### A ERASMO, MORPH, A1C, CMP, GFR, LIPID, PSA, VIDH, CBC, ADIFF #### [address] [address] Electrolyte Balance 8.0 mEq/L Normal 4.0-15.0 [facility] Comment on above: Performed By: #### A ERASMO, MORPH, A1C, CMP, GFR, LIPID, PSA, VIDH, CBC, ADIFF #### [place] [address] Globulin 2.8 G/dL Normal 1.5-3.8 [facility] Comment on above: Performed By: #### A ERASMO, MORPH, A1C, CMP, GFR, LIPID, PSA, VIDH, CBC, ADIFF #### [address] [address] Glucose [Mass/Vol] 139 mg/dL High 83-110 [facility] Comment on above: Performed By: #### A ERASMO, MORPH, A1C, CMP, GFR, LIPID, PSA, VIDH, CBC, ADIFF #### [address] [address] Potassium [Moles/Vol] 5.3 mmol/L High 3.5-5.1 [facility] Comment on above: Performed By: #### A ERASMO, MORPH, A1C, CMP, GFR, LIPID, PSA, VIDH, CBC, ADIFF #### [address] [address] Sodium [Moles/Vol] 139 mmol/L Normal 136-145 [facility] Comment on above: Performed By: #### A ERASMO, MORPH, A1C, CMP, GFR, LIPID, PSA, VIDH, CBC, ADIFF #### [address] [address] Total Protein 6.5 G/dL Normal 6.4-8.2 [facility] Comment on above: Performed By: #### A ERASMO, MORPH, A1C, CMP, GFR, LIPID, PSA, VIDH, CBC, ADIFF #### [address] [address] Urea nitrogen [Mass/Vol] 27 mg/dL High 7-18 [facility] Comment on above: Performed By: #### A ERASMO, MORPH, A1C, CMP, GFR, LIPID, PSA, VIDH, CBC, ADIFF #### [address] [address] LABORATORYOrdered By: SYSTEM SYSTEM on 07-06-2024 25-hydroxyvitamin D3 [Mass/Vol] 68.7 ng/mL Invalid Interpretation Code AO ADM SS Comment on above: Interpretive Data: I nterpretive Values Based on Total 25(OH) Vitamin D: Deficient <20 ng/mL Insufficient 20 - <30 ng/mL Sufficient 30-100 ng/mL Albumin BCP dye [Mass/Vol] 3.7 G/dL Normal 3.4 - 4.8 G/dL AO ADM SS Albumin/Globulin [Mass ratio] 1.3 {ratio} Normal 1.1 - 2.5 ratio AO ADM SS ALP [Catalytic activity/Vol] 109 U/L Normal 40 - 135 U/L AO ADM SS ALT With P-5'-P [Catalytic activity/Vol] 29 U/L Normal 16 - 63 U/L AO ADM SS AST With P-5'-P [Catalytic activity/Vol] 33 U/L Normal 10 - 40 U/L AO ADM SS Basophils (Bld) [#/Vol] 0.0 103/mcL Normal 0.0 - 0.2 10^3/mcL AO Workflow SS Basophils/100 WBC (Bld) 0.9 % Normal 0.0 - 2.5 % AO Workflow SS Bilirubin [Mass/Vol] 1.3 mg/dL High 0.2 - 1 .0 mg/dL AO ADM SS Comment on above: Interpretive Data: U se of this assay is not recommended for patients undergoing treatment with eltrombopag due to the potential for falsely elevated results. Calcium [Mass/Vol] 9.0 mg/dL Normal 8.4 - 10. 2 mg/dL AO ADM SS Chloride [Moles/Vol] 102 mmol/L Normal 98 - 10 7 mmol/L AO ADM SS CO2 [Moles/Vol] 29 mmol/L Normal 23 - 31 mmol/L AO ADM SS Creatinine [Mass/Vol] 1.33 mg/dL High 0.70 - 1.30 mg/dL AO ADM SS Comment on above: Interpretive Data: T esting performed on Siemens Dimension EXL analyzer using a modified kinetic [place] technique. Electrolyte Balance 8.0 mEq/L Normal 4.0 - 15 .0 mEq/L AO ADM SS Eosinophil, Absolute 0.1 103/mcL Normal 0.0 - 0 .7 10^3/mcL AO Workflow SS Eosinophils/100 WBC (Bld) 2.2 % Normal 0.0 - 7.0 % AO Workflow SS Erythrocyte distribution width (RBC) [Ratio] 15.0 % Normal 11.5 - 15.5 % AO Workflow SS Estimated Glomerular Filtration Rate 53 ml/min/1.73sqm Invalid Interpretation Code AO Chemistry S Comment on above: Interpretive Data: Stages of Chronic Kidney Disease (CKD) Stage Description eGFR(ml/min/1.73 sq.m.) CKD 1 Normal kidney function or >=90 normal kindney function with possible kidney damage (ex. Proteinuria) CKD 2 Kidney damage with mild loss 60-89 of kidney function CKD 3a Mild to moderate loss of kidney 45-59 function CKD 3b Moderate to severe loss of 30-44 of kindey function CKD 4 Severe loss of kidney function 15-29 CKD 5 Kidney failure <15 Note: (go live 2024) the eGFR calculation was updated to the 2020 CKD-EPI creatinine equation without a race factor to calculate the eGFR results. Globulin 2.8 G/dL Normal 1.5 - 3.8 G/dL AO ADM SS Glucose [Mass/Vol] 139 mg/dL High 83 - 110 mg/dL AO ADM SS Glucose [Mass/Vol] 85 mg/dL Invalid Interpretation Code AO Chemistry S Comment on above: Interpretive Data: E stimated average glucose (eAG) is a calculated value from Hemoglobin A1C and is factory representative of the average blood glucose level in the last 2-3 month period. Normal range: less than 114 mg/dL HbA1c (Bld) [Mass fraction] 4.6 % Normal 4.3 - 6.4 % AO ADM SS Hematocrit (Bld) [Volume fraction] 34.5 % Low 40.0 - 52.0 % AO Workflow SS Hemoglobin (Bld) [Mass/Vol] 12.3 G/dL Low 13.0 - 17.5 G/dL AO Workflow SS Lymphocytes (Bld) [#/Vol] 1.0 103/mcL Normal 0.9 - 4.3 10^3/mcL AO Workflow SS Lymphocytes/100 WBC (Bld) 22.8 % Normal 20.0 - 40.0 % AO Workflow SS MCH (RBC) [Entitic mass] 37.9 pg High 27.0 - 33.0 pg AO Workflow SS MCHC 35.5 G/dL Normal 32.0 - 36.0 G/dL AO Workflow SS MCV (RBC) [Entitic vol] 106.9 fL High 81.0 - 100.0 fL AO Workflow SS Monocytes (Bld) [#/Vol] 0.3 103/mcL Normal 0.1 - 1.4 10^3/mcL AO Workflow SS Monocytes/100 WBC (Bld) 6.5 % Normal 2.0 - 13.0 % AO Workflow SS Neutrophils (Bld) [#/Vol] 3.0 103/mcL Normal 2.3 - 8.1 10^3/mcL AO Workflow SS Neutrophils/100 WBC (Bld) 67.6 % Normal 50.0 - 75.0 % AO Workflow SS Platelet mean volume (Bld) [Entitic vol] 9.6 fL Normal 6.4 - 10.5 fL AO Workflow SS Platelets (Bld) [#/Vol] 243 103/mcL Normal 150 - 450 10^3/mcL AO Workflow SS Potassium [Moles/Vol] 5.3 mmol/L High 3.5 - 5.1 mmol/L AO ADM SS Prostate specific Ag [Mass/Vol] 2.02 ng/mL Normal 0.00 - 4.00 ng/mL AO ADM SS Protein [Mass/Vol] 6.5 G/dL Normal 6.4 - 8.2 G/dL AO ADM SS RBC (Bld) [#/Vol] 3.23 106/mcL Low 4.50 - 6.0 0 10^6/mcL AO Workflow SS Sodium [Moles/Vol] 139 mmol/L Normal 136 - 145 mmol/L AO ADM SS Urea nitrogen [Mass/Vol] 27 mg/dL High 7 - 18 mg/dL AO ADM SS Urea nitrogen/Creatinine [Mass ratio] 20 ratio Normal 7 - 27 ratio AO ADM SS WBC (Bld) [#/Vol] 4.5 103/mcL Normal 4.5 - 10.8 10^3/mcL AO Workflow SS LABORATORYOrdered By: Meagan Scruggs on 07-06-2024 Cholesterol [Mass/Vol] 135 mg/dL Normal 0 - 2 00 mg/dL AO ADM SS Comment on above: Interpretive Data: C holesterol Reference Interval: Less than 200 Desirable 200-239 Borderline high risk 240 and above High risk Cholesterol in HDL [Mass/Vol] 56 mg/dL Normal 40 - 60 mg/dL AO ADM SS Cholesterol in LDL [Mass/Vol] 52 mg/dL Normal 0 - 130 mg/dL AO ADM SS Triglyceride [Mass/Vol] 137 mg/dL Normal 0 - 150 mg/dL AO ADM SS Comment on above: Interpretive Data: T riglyceride Reference Interval: Less than 150 Normal 150-199 Borderline high risk 200-499 High risk 500 or higher Very high risk LABORATORYOrdered By: Kishan Gamble on 07-06-2024 Platelets LM Ql (Bld) Normal (07/06/24 11:31 AM) Normal AO Hematology S LIPIDon 07-06-2024 Cholesterol [Mass/Vol] 135 mg/dL Normal 0-200 [place] Comment on above: Result Comment: Chol esterol Reference Interval: Less than 200 Desirable 200-239 Borderline high risk 240 and above High risk Performed By: #### A ERASMO, MORPH, A1C, CMP, GFR, LIPID, PSA, VIDH, CBC, ADIFF #### [address] [address] Cholesterol in HDL [Mass/Vol] 56 mg/dL Normal 40-60 [facility] Comment on above: Performed By: #### A ERASMO, MORPH, A1C, CMP, GFR, LIPID, PSA, VIDH, CBC, ADIFF #### [address] [address] Cholesterol in LDL [Mass/Vol] 52 mg/dL Normal 0-130 [facility] Comment on above: Performed By: #### A ERASMO, MORPH, A1C, CMP, GFR, LIPID, PSA, VIDH, CBC, ADIFF #### [address] [address] Triglyceride [Mass/Vol] 137 mg/dL Normal 0-150 [facility] Comment on above: Result Comment: Trig lyceride Reference Interval: Less than 150 Normal 150-199 Borderline high risk 200-499 High risk 500 or higher Very high risk Performed By: #### A ERASMO, MORPH, A1C, CMP, GFR, LIPID, PSA, VIDH, CBC, ADIFF #### [address] [address] PSAon 07-06-2024 Prostate Specific Antigen 2.02 ng/mL Normal 0.00-4.00 [facility] Comment on above: Performed By: #### A ERASMO, MORPH, A1C, CMP, GFR, LIPID, PSA, VIDH, CBC, ADIFF #### [address] [address] VIDHon 07-06-2024 Vit. D 25-Hydroxy 68.7 ng/mL Normal [facility] Comment on above: Result Comment: Inte rpretive Values Based on Total 25(OH) Vitamin D: Deficient <20 ng/mL Insufficient 20 - <30 ng/mL Sufficient 30-100 ng/mL Performed By: #### A ERASMO, MORPH, A1C, CMP, GFR, LIPID, PSA, VIDH, CBC, ADIFF #### [facility] [address] [place], [place] [address] CBC W/Diff, Automatedon 05-26 Hematocrit (Bld) [Volume fraction] 33.4 % Low 40-54 [facility] Comment on above: Performed By: #### L 100.0100 #### [facility] [address] [place], [address] Gastroenterology Visit Repor ton 06-22-2024 Gastroenterology Visit Report [facility] [address] [place] [address] OFFICE VISIT Date of Service: 06/22/24 MR#: [id number] Acct: [id number] Name: LEE TADEO RENE Rep #: [id number] : 1940 Provider: WALLACE Wyman Age/Sex: 84/M Location: [facility] Status: Signed Intake Vital Signs 06/19/24 17:30 Height 6 ft Intake Visit Reasons: Hospital FU Chief Complaint: Constipation Allergies venom-honey bee Allergy (Verified 06/19/24 17:30) Hives hydrocodone Adverse Reaction (Verified 06/19/24 17:30) Upset Stomach oxycodone Adverse Reaction (Verified 06/19/24 17:30) Upset Stomach Medications ???Medication ???Instructions ???Recorded ???Confirmed ???Type citalopram 40 mg tablet 20 mg PO DAILY 07/08/18 06/22/24 H istory multivitamin (Daily Multi-Vitamin 1 tab PO DAILY 07/08/18 06/22/24 History tablet) pravastatin 80 mg tablet 80 mg PO DAILY 07/08/18 06/22/24 H istory lisinopril 10 mg tablet 5 mg PO DAILY 05/09/20 06/22/24 Hi story omega-3 fatty acids 1,000 mg 1,000 mg PO DAILY 06/13/20 5 History capsule (Fish Oil Concentrate) pantoprazole 40 mg tablet,delayed 40 mg PO DAILY 06/13/20 06/22/24 History release polyethylene glycol 3350 17 17 g PO DAILY 06/13/20 06/22/24 Hi story gram/dose oral powder (Miralax) apixaban 5 mg tablet (Eliquis) 5 mg PO BID 01/22/22 06/22/24 Hist ory nifedipine 30 mg tablet,extended 30 mg PO DAILY #90 tabs 02/12/22 0 06/22/24 Rx release pseudoephedrine 60 mg-DM 15 1 tab PO Q4-6H PRN cold symptoms 0 06/02/24 06/22/24 Rx mg-guaifenesin 400 mg tablet #20 tabs (Capmist DM) pseudoephedrine HCl 120 mg 120 mg PO Q12H PRN nasal 06/02/24 06/22/24 Rx tablet,extended release (Nasal congestion #30 tabs Decongestant (pseudoephedrine)) albuterol sulfate 90 mcg/actuation 2 puff inhalation Q4-6H PRN 05/2406/22/24 Rx aerosol inhaler shortness of breath or wheezing #6.7 grams Have you fallen in the past year?: No PFSH Medical History Impingement of right shoulder Right shoulder pain Dysuria Urinary incontinence Prostate cancer A-fib H/O TIA (transient ischemic attack) and stroke hypertension tonsilectomy Appendiceal Removal Gallbladder Removal spinal fusion Surgical History H/O colonoscopy History of appendectomy History of cholecystectomy History of back surgery ( 12/2017) History of left knee replacement Social History Smoking Status: Former smoker alcohol intake: never substance use type: does not use HPI HPI Chief Complaint: Constipation Details: LEE TAEDO, is a 84 M who presents to the office today for f/u. [facility] ED 06.19.24 w/ concern for GI bleed. Pt on Eliquis. Pt was constipated and gave enema. He had abd pain and eventually had a bowel movement with bright red blood. Work up revealed hgb 11.5, CMP w/o SADIQ, normal lipase, UA suggest of UTI, stool occult positive. CT abd/pelvis wnl CT abd/pelvis 06.19.24; Diverticular disease of the descending colon without evidence for acute diverticulitis No evidence for small bowel obstruction or other acute abnormality Status post cholecystectomy and appendectomy. Other findings as above OV 06.22.24 Pt is no longer having any rectal bleeding. However, he continues to have issues with constipation. Baseline he does have constipation and has taken miralax daily for years now. This has kept his constipation under control for some time now but it is no longer working. He increased his miralax to twice a day but he continued to be constipated. Last night he added one dose of colace. He has not had a bm yet today. He has not had any diet or medication changes leading to his constipation. He feels he has not been as active lately due to the cold weather. His last colonoscopy was in [address] Antunez. He reports that he has had small polyps in the past. He tells me in the 70s he had a bleeding ulcer and had to be transfused with 3 units of packed red blood cells. He has not had any further issues with ulcers since then. ROS Const Constitutional: Positive for fatigue; No fever(s) or weight change ENT ENT: No difficulty swallowing Gastro GI: Positive for abdominal pain, bloating, change in bowel habits, constipation and excessive flatus; No belching, change in stool character, coffee ground emesis, cramping, diarrhea, heartburn, difficulty swallowing, feeling full early, incontinent of stools, Vomiting blood/hematemesis, Blood in stool, loose stools, Black,tarry stools, nausea/dyspepsia, pain with swallowing, vomiting or other Musc Musculoskeletal: Positive for muscle cramps, muscle weakness, (more content not included)... Normal [facility] Abdomen/Pelvis W IV Cont ONL Yon 06-19-2024 Abdomen/Pelvis W IV Cont ONLY [facility] Imaging Services [address] [place] [address] Abdomen/Pelvis W IV Cont ONLY MR#: [id number] Acct: [id number] Name: LEE TADEO Rep #: [id number] : 1940 M 84 From: Yair Ng MD PCP: Dr. Ana Shaikh DO Status: REG ER Study: Abdomen/Pelvis W IV Cont ONLY Date of Exam: Exam# [id number] Ordering Dr: Cristhian Case DO [id number] STUDY: CT ABDOMEN AND PELVIS WITH CONTRAST REASON FOR EXAM: Male, 84 years old. diffuse abdominal pain, bloating RADIATION DOSAGE (If Supplied By Facility): CTDIvol = ( 16.64 ) mGy, DLP = ( 1060.07 ) mGycm TECHNIQUE: Transaxial images were obtained from the dome of the diaphragm to the symphysis pubis without oral contrast. IV 100mL Isovue-300 was administered. Sagittal and coronal images were reconstructed. Individualized dose optimization techniques were used for this CT. COMPARISON: None. FINDINGS: The visualized lung bases are unremarkable. The visualized portions of the heart are within normal limits. Liver is normal size. There is a tiny cyst in left lobe. Bile ducts are not dilated. Gallbladder has been removed surgically. Normal spleen. Normal pancreas. Normal bilateral adrenal glands. 2 large simple cyst in right kidney which cannot require additional imaging and 2 tiny cysts in the left . No evidence for renal obstruction or ureteral calculus Normal visualized stomach. Normal small intestine. Diverticular disease of the descending colon without evidence for acute diverticulitis. Appendix is not visualized status post appendectomy Atherosclerotic changes of the aorta without evidence for aneurysm. Normal inferior vena cava. Normal retroperitoneum. Normal urinary bladder. Prostate is enlarged. Moderate-sized fat-containing right inguinal hernia . Lumbar spine demonstrates degenerative changes. Grade 1 spondylolisthesis at L4-5. Status post bilateral laminectomy and posterior fusion at L4-5 . Tiny sclerotic densities within the right hip most likely bone islands CT/Abdomen/Pelvis W IV Cont ONLY IMPRESSION: Diverticular disease of the descending colon without evidence for acute diverticulitis No evidence for small bowel obstruction or other acute abnormality Status post cholecystectomy and appendectomy. Other findings as above Electronically Signed: Yair Ng MD at 21:16 EST , CC: Dr. Ana Shaikh, DO; Dr. Cristhian Case, DO Evaporator Helper: Signed Normal [facility] Amylaseon 06-19-2024 COCO 63 U/L Normal 25-115 [facility] Comment on above: Performed By: #### L 100.0100, L500.4050, L501.2400, L501.2450 #### [facility] [address] [place], [address] CBC W/Diff, Automatedon 05-25 Absolute Lymph 1.07 X10 3/uL Normal 0.83-4.51 [facility] Comment on above: Performed By: #### L 500.4050, L100.0100 #### [facility] [address] [place], [address] Absolute Neut 5.5 X10 3/uL Normal 2.0-7.7 [facility] Comment on above: Performed By: #### L 500.4050, L100.0100 #### [facility] [address] [place], [address] Basophils/100 WBC (Bld) 0.4 % Normal 0-1 [facility] Comment on above: Performed By: #### L 500.4050, L100.0100 #### [facility] [address] [place], [address] Eosinophils/100 WBC (Bld) 1.3 % Normal 0-5 [facility] Comment on above: Performed By: #### L 500.4050, L100.0100 #### [facility] [address] [place], [address] Erythrocyte distribution width (RBC) [Ratio] 16.1 % High 11.6-14.6 [facility] Comment on above: Performed By: #### L 500.4050, L100.0100 #### [facility] [address] [place], [address] Hematocrit (Bld) [Volume fraction] 33.2 % Low 40-54 [facility] Comment on above: Performed By: #### L 500.4050, L100.0100 #### [facility] [address] [place], [address] Hemoglobin (Bld) [Mass/Vol] 11.5 g/dL Low 13.0-16.5 [facility] Comment on above: Performed By: #### L 500.4050, L100.0100 #### [facility] [address] [place], [address] IG% 0.700 Normal 0.0-0.9 [facility] Comment on above: Result Comment: IG% - Immature Granulocytes (promyelocytes, myelocytes and metamyelocytes) > 1% indicates that a LEFT SHIFT is Present. Performed By: #### L 500.4050, L100.0100 #### [facility] [address] [place], [address] Lymphocytes/100 WBC (Bld) 14.9 % Low 19-41 [facility] Comment on above: Performed By: #### L 500.4050, L100.0100 #### [facility] [address] [place], [address] MCH (RBC) [Entitic mass] 35.2 pg High 27.0-32.0 [facility] Comment on above: Performed By: #### L 500.4050, L100.0100 #### [facility] [address] [place], [address] MCHC (RBC) [Mass/Vol] 34.6 g/dL Normal 32-36 [facility] Comment on above: Performed By: #### L 500.4050, L100.0100 #### [facility] [address] [place], [address] MCV (RBC) [Entitic vol] 101.5 fL High 80-94 [facility] Comment on above: Performed By: #### L 500.4050, L100.0100 #### [facility] [address] [place], [address] Monocytes/100 WBC (Bld) 5.7 % Normal 0-10 [facility] [place] Comment on above: Performed By: #### L 500.4050, L100.0100 #### [facility] [address] [place], [address] Neutrophils/100 WBC (Bld) 77.0 % High 47-70 [facility] Comment on above: Performed By: #### L 500.4050, L100.0100 #### [facility] [address] [place], [address] Nucleated RBC (Bld) [#/Vol] 0 10*3/uL Normal 0-5 [facility] Comment on above: Performed By: #### L 500.4050, L100.0100 #### [facility] [address] [place], [address] Platelet mean volume (Bld) [Entitic vol] 11.3 fL Normal 6.2-12.0 [facility] Comment on above: Performed By: #### L 500.4050, L100.0100 #### [facility] [address] [place], [address] Platelets (Bld) [#/Vol] 318 10*3/uL Normal 150-450 [facility] Comment on above: Performed By: #### L 500.4050, L100.0100 #### [facility] [address] [place], [address] RBC (Bld) [#/Vol] 3.27 10*6/uL Low 4.6-6.2 [facility] Comment on above: Performed By: #### L 500.4050, L100.0100 #### [facility] [address] [place], [address] RDW SD 58.8 fl High 35.1-43.9 [facility] Comment on above: Performed By: #### L 500.4050, L100.0100 #### [facility] [address] [place], [address] WBC (Bld) [#/Vol] 7.2 10*3/uL Normal 4.4-11.0 [facility] Comment on above: Performed By: #### L 500.4050, L100.0100 #### [facility] [address] [place], [address] Absolute Neut Normal 2.0-7.7 [facility] Comment on above: Result Comment: DUPL ICATE ORDER Performed By: #### L 100.0100, L500.4050, L501.2400, L501.2450 #### [facility] [address] [place], [address] HCT Normal 40-54 [facility] Comment on above: Result Comment: DUPL ICATE ORDER Performed By: #### L 100.0100, L500.4050, L501.2400, L501.2450 #### [facility] [address] [place], [address] HGB Normal 13.0-16.5 [facility] Comment on above: Result Comment: DUPL ICATE ORDER Performed By: #### L 100.0100, L500.4050, L501.2400, L501.2450 #### [facility] [address] [place], [address] MCH Normal 27.0-32.0 [facility] Comment on above: Result Comment: DUPL ICATE ORDER Performed By: #### L 100.0100, L500.4050, L501.2400, L501.2450 #### [facility] [address] [place], [address] MCHC Normal 32-36 [facility] Comment on above: Result Comment: DUPL ICATE ORDER Performed By: #### L 100.0100, L500.4050, L501.2400, L501.2450 #### [facility] [address] [place], [address] MCV Normal 80-94 [facility] Comment on above: Result Comment: DUPL ICATE ORDER Performed By: #### L 100.0100, L500.4050, L501.2400, L501.2450 #### [facility] [address] [place], [address] NEUT% Normal 47-70 [facility] Comment on above: Result Comment: DUPL ICATE ORDER Performed By: #### L 100.0100, L500.4050, L501.2400, L501.2450 #### [facility] [address] [place], [address] PLT Normal 150-450 [facility] Comment on above: Result Comment: DUPL ICATE ORDER Performed By: #### L 100.0100, L500.4050, L501.2400, L501.2450 #### [facility] [address] [place], [address] RBC Normal 4.6-6.2 [facility] Comment on above: Result Comment: DUPL ICATE ORDER Performed By: #### L 100.0100, L500.4050, L501.2400, L501.2450 #### [facility] [address] [place], [address] RDW CV Normal 11.6-14.6 [facility] Comment on above: Result Comment: DUPL ICATE ORDER Performed By: #### L 100.0100, L500.4050, L501.2400, L501.2450 #### [facility] [address] [place], [address] RDW SD Normal 35.1-43.9 [facility] Comment on above: Result Comment: DUPL ICATE ORDER Performed By: #### L 100.0100, L500.4050, L501.2400, L501.2450 #### [facility] [address] [place], [address] WBC Normal 4.4-11.0 [facility] Comment on above: Result Comment: DUPL ICATE ORDER Performed By: #### L 100.0100, L500.4050, L501.2400, L501.2450 #### [facility] [address] [place], [address] Comprehensive Metabolic Prof ilon 06-19-2024 Albumin [Mass/Vol] 3.7 g/dL Normal 3.2-5.0 [facility] Comment on above: Performed By: #### L 100.0100, L500.4050, L501.2400, L501.2450 #### [facility] [address] [place], [address] Albumin/Globulin [Mass ratio] 1.1 {ratio} Normal 0.9-2.4 [facility] Comment on above: Performed By: #### L 100.0100, L500.4050, L501.2400, L501.2450 #### [facility] [address] [place], [address] ALK P 96 U/L Normal 45-117 [facility] Comment on above: Performed By: #### L 100.0100, L500.4050, L501.2400, L501.2450 #### [facility] [address] [place], [address] ALT [Catalytic activity/Vol] 26 U/L Normal 16-61 [facility] Comment on above: Performed By: #### L 100.0100, L500.4050, L501.2400, L501.2450 #### [facility] [address] [place], [address] AST [Catalytic activity/Vol] 31 U/L Normal 15-37 [facility] Comment on above: Performed By: #### L 100.0100, L500.4050, L501.2400, L501.2450 #### [facility] [address] [place], [address] Bilirubin [Mass/Vol] 1.30 mg/dL High 0.20-1.00 [facility] Comment on above: Result Comment: For patients on eltrombopag therapy, use of Dimension [place] TBIL is not recommended. Performed By: #### L 100.0100, L500.4050, L501.2400, L501.2450 #### [facility] [address] [place], [address] BUN/CRE 20.5 RATIO High 10-20 [facility] Comment on above: Performed By: #### L 100.0100, L500.4050, L501.2400, L501.2450 #### [facility] [address] [place], [address] CA,Total 9.7 mg/dL Normal 8.5-10.1 [facility] Comment on above: Performed By: #### L 100.0100, L500.4050, L501.2400, L501.2450 #### [facility] [address] [place], [address] Chloride [Moles/Vol] 105 mmol/L Normal 98-107 [facility] Comment on above: Performed By: #### L 100.0100, L500.4050, L501.2400, L501.2450 #### [facility] [address] [place], [address] CO2 [Moles/Vol] 25.0 mmol/L Normal 21.0-32.0 [facility] Comment on above: Performed By: #### L 100.0100, L500.4050, L501.2400, L501.2450 #### [facility] [address] [place], [address] Creatinine [Mass/Vol] 1.27 mg/dL Normal 0.70-1.30 [facility] Comment on above: Result Comment: The validity of the calculated GFR GFRAA in patients over 70 years has not been determined. Clinical correlation is essential. Performed By: #### L 100.0100, L500.4050, L501.2400, L501.2450 #### [facility] [address] [place], [address] ECRCL 49.22 ml/min Normal [facility] Comment on above: Performed By: #### L 100.0100, L500.4050, L501.2400, L501.2450 #### [facility] [address] [place], [address] EST GFR - AA 70 mL/min Normal >60 [facility] Comment on above: Result Comment: Afri can Faroese GFR Calc Performed By: #### L 100.0100, L500.4050, L501.2400, L501.2450 #### [facility] [address] [place], [address] GAP 8 Normal 5-15 [facility] Comment on above: Performed By: #### L 100.0100, L500.4050, L501.2400, L501.2450 #### [facility] [address] [place], [address] GFR/1.73 sq M.predicted among non-blacks MDRD (S/P/Bld) [Vol rate/Area] 58 mL/min/{1.73_m2} Low >60 [facility] Comment on above: Result Comment: Non- GFR Calc Performed By: #### L 100.0100, L500.4050, L501.2400, L501.2450 #### [facility] [address] [place], [address] Globulin (S) [Mass/Vol] 3.3 g/dL Normal 2.2-4.2 [facility] Comment on above: Performed By: #### L 100.0100, L500.4050, L501.2400, L501.2450 #### [facility] [address] [place], [address] Glucose [Mass/Vol] 98 mg/dL Normal 74-106 [facility] Comment on above: Performed By: #### L 100.0100, L500.4050, L501.2400, L501.2450 #### [facility] [address] [place], [address] Potassium [Moles/Vol] 4.4 mmol/L Normal 3.5-5.1 [facility] Comment on above: Performed By: #### L 100.0100, L500.4050, L501.2400, L501.2450 #### [facility] [address] [place], [address] Sodium [Moles/Vol] 138 mmol/L Normal 136-145 [facility] Comment on above: Performed By: #### L 100.0100, L500.4050, L501.2400, L501.2450 #### [facility] [address] [place], [address] T PROT 7.0 g/dL Normal 6.4-8.2 [facility] Comment on above: Performed By: #### L 100.0100, L500.4050, L501.2400, L501.2450 #### [facility] [address] [place], [address] Urea nitrogen [Mass/Vol] 26 mg/dL High 7-18 [facility] Comment on above: Performed By: #### L 100.0100, L500.4050, L501.2400, L501.2450 #### [facility] [address] [place], [address] ALB Normal 3.2-5.0 [facility] Comment on above: Result Comment: DUPL ICATE ORDER Performed By: #### L 500.4050, L100.0100 #### [facility] [address] [place], [address] ALK P Normal 45-117 [facility] Comment on above: Result Comment: DUPL ICATE ORDER Performed By: #### L 500.4050, L100.0100 #### [facility] [address] [place], [address] ALT Normal 16-61 [facility] Comment on above: Result Comment: DUPL ICATE ORDER Performed By: #### L 500.4050, L100.0100 #### [facility] [address] [place], [address] AST Normal 15-37 [facility] Comment on above: Result Comment: DUPL ICATE ORDER Performed By: #### L 500.4050, L100.0100 #### [facility] [address] [place], [address] BUN Normal 7-18 [facility] Comment on above: Result Comment: DUPL ICATE ORDER Performed By: #### L 500.4050, L100.0100 #### [facility] [address] [place], [address] BUN/CRE Normal 10-20 [facility] Comment on above: Result Comment: DUPL ICATE ORDER Performed By: #### L 500.4050, L100.0100 #### [facility] [address] [place], [address] CA,Total Normal 8.5-10.1 [facility] Comment on above: Result Comment: DUPL ICATE ORDER Performed By: #### L 500.4050, L100.0100 #### [facility] [address] [place], [address] CL Normal 98-107 [facility] Comment on above: Result Comment: DUPL ICATE ORDER Performed By: #### L 500.4050, L100.0100 #### [facility] [address] [place], [address] CO2 Normal 21.0-32.0 [facility] Comment on above: Result Comment: DUPL ICATE ORDER Performed By: #### L 500.4050, L100.0100 #### [facility] [address] [place], [address] CREAT,SERUM Normal 0.70-1.30 [facility] Comment on above: Result Comment: DUPL ICATE ORDER Performed By: #### L 500.4050, L100.0100 #### [facility] [address] [place], [address] EST GFR Normal >60 [facility] Comment on above: Result Comment: DUPL ICATE ORDER Performed By: #### L 500.4050, L100.0100 #### [facility] [address] [place], [address] EST GFR - AA Normal >60 [facility] Comment on above: Result Comment: DUPL ICATE ORDER Performed By: #### L 500.4050, L100.0100 #### [facility] [address] [place], [address] GAP Normal 5-15 [facility] Comment on above: Result Comment: DUPL ICATE ORDER Performed By: #### L 500.4050, L100.0100 #### [facility] [address] [place], [address] GLU Normal 74-106 [facility] Comment on above: Result Comment: DUPL ICATE ORDER Performed By: #### L 500.4050, L100.0100 #### [facility] [address] [place], [address] Potassium Normal 3.5-5.1 [facility] Comment on above: Result Comment: DUPL ICATE ORDER Performed By: #### L 500.4050, L100.0100 #### [facility] [address] [place], [address] T BILI Normal 0.20-1.00 [facility] Comment on above: Result Comment: DUPL ICATE ORDER Performed By: #### L 500.4050, L100.0100 #### [facility] [address] [place], [address] T PROT Normal 6.4-8.2 [facility] Comment on above: Result Comment: DUPL ICATE ORDER Performed By: #### L 500.4050, L100.0100 #### [facility] [address] [place], [address] Comprehensive Metabolic Profil Normal 136-145 [facility] Comment on above: Result Comment: DUPL ICATE ORDER Performed By: #### L 500.4050, L100.0100 #### [facility] [address] [place], [address] Emergency Department Summary on 06-19-2024 Emergency Department Summary [facility] Medical Records Department [address] [place] [address] Emergency Department Summary 06/19/24 MR#: [id number] Acct: [id number] Name: LEE TADEO Rep #: [id number] : 1940 84 From: Cristhian Case DO PCP: Dr. Ana Shaikh, DO Status:REG ER Location: ED HPI History of Present Illness Chief Complaint: GI Bleed [facility] Medical History (Updated 06/19/24 @ 22:[address] Cristhian Case DO) Impingement of right shoulder Right shoulder pain Dysuria Urinary incontinence Prostate cancer A-fib H/O TIA (transient ischemic attack) and stroke hypertension tonsilectomy Appendiceal Removal Gallbladder Removal spinal fusion Home Medications ???Medication ???Instructions ???Recorded ???Last Taken ???Type citalopram 40 mg tablet 20 mg PO DAILY 07/08/18 Unknown History multivitamin (Daily Multi-Vitamin 1 tab PO DAILY 07/08/18 Unknown History tablet) pravastatin 80 mg tablet 80 mg PO DAILY 07/08/18 Unknown History lisinopril 10 mg tablet 5 mg PO DAILY 05/09/20 Unknown History omega-3 fatty acids 1,000 mg 1,000 mg PO DAILY 06/13/20 Unknown History capsule (Fish Oil Concentrate) pantoprazole 40 mg tablet,delayed 40 mg PO DAILY 06/13/20 Unknown History release polyethylene glycol 3350 17 17 g PO DAILY 06/13/20 Unknown History gram/dose oral powder (Miralax) apixaban 5 mg tablet (Eliquis) 5 mg PO BID 01/22/22 Unknown History nifedipine 30 mg tablet,extended 30 mg PO DAILY #90 tabs 02/12/22 Unknown Rx release pseudoephedrine 60 mg-DM 15 1 tab PO Q4-6H PRN cold symptoms 06/02/24 Unknown Rx mg-guaifenesin 400 mg tablet #20 tabs (Capmist DM) pseudoephedrine HCl 120 mg 120 mg PO Q12H PRN nasal 06/02/24 Unknown Rx tablet,extended release (Nasal congestion #30 tabs Decongestant (pseudoephedrine)) albuterol sulfate 90 mcg/actuation 2 puff inhalation Q4-6H PRN 06/05/24 Unknown Rx aerosol inhaler shortness of breath or wheezing #6.7 grams Allergy/AdvReac Type Severity Reaction Status Date / Time venom-honey bee Allergy Hives Verified 06/19/24 17:30 hydrocodone AdvReac Upset Verified 06/19/24 17:30 Stomach oxycodone AdvReac Upset Verified 06/19/24 17:30 Stomach Surgical History H/O colonoscopy History of appendectomy History of cholecystectomy History of back surgery ( 12/2017) History of left knee replacement Social History Smoking Status: Former smoker alcohol intake: never substance use type: does not use EXAM Physical Exam Const Vital Signs: 06/19/24 17:30 06/19/24 20:27 06/19/24 22:00 Temperature 96.8 F L Temperature Source Temporal Pulse Rate 103 H 66 81 Respiratory Rate 15 15 15 Blood Pressure 122/106 H 141/70 H 136/87 H Blood Pressure Mean 111 93 103 Pulse Ox 97 97 97 Oxygen Delivery Method Room Air Room Air Room Air MDM MDM MDM Narrative Medical decision making narrative: HISTORY OF PRESENT ILLNESS: 84-year-old male here with concern for GI bleed. Notes is on Eliquis. Notes this morning he is constipated. Notes his gave him a Fleet enema. Since then he has been experiencing lower abdominal pain and bloating. He notes he had a bowel movement with bright red blood. Notes on Eliquis. Denies vomiting. Denies fever. REVIEW OF SYSTEMS: Pertinent positives: Constipation, bright red blood bowel movement, abdominal pain, bloating Pertinent negatives: Vomiting, fever PHYSICAL EXAM: Nursing triage notes reviewed, Vital signs reviewed Constitutional: please see mdm HENT: MMM Eyes: Pupils equal round and reactive to light, Extraocular muscles intact Neck: No stridor, no JVD, full neck ROM Lungs: Clear to auscultation, No wheezing or rales. No increased work of breathing, no conversational dyspnea, no accessory muscle use, no nasal flaring. No respiratory distress noted Heart: Regular rate and rhythm, No murmurs, No rubs and No gallops, 2+ distal pulses (radial, femoral, posterior tibial) in all extremities Abdomen: Soft, there is no tenderness, rigidity, rebound or guarding, no obvious peritoneal signs, no palpable pulsatile abdominal masses, no auscultated abdominal bruit : No CVAT Extremities: No edema Neuro: No new focal neurological deficits, cranial nerves II through XII intact, 5/5 strength in all present extremities. Intact sensation to light touch in all present extremities, 2+ reflexes bilateral patella tendons. Rectal: Performed biztalk consultant in room shows nonbleeding hemorrhoid, no fissures, no fistulas. No gross blood. No melena noted on glove. Occult blood sample sent to lab. Skin: No rash or lesions noted MEDICAL DECISION MAKING: Chief Complaint: Bright red blood per rectum, abdo (more content not included)... Normal [facility] Lipaseon 06-19-2024 Lipase [Catalytic activity/Vol] 50 U/L Normal 13-75 [facility] Comment on above: Result Comment: Lian kimball note: LIPASE revised reference range effective 22. New Lipase methodology. Expected to produce lower values than the previous assay method. NEW Reference Range: 13 - 75 U/L Performed By: #### L 100.0100, L500.4050, L501.2400, L501.2450 #### [facility] [address] [place], [place], [id number] Stool Occult Blood iFOBon STOB Positive Normal [facility] Comment on above: Performed By: #### L 100.0100, L500.4050, L501.2400, L501.2450 #### [facility] [address] [place], [place], [address] Urinalysis, Completeon 06-19 BILIRUBIN URINE Negative Normal Negative [facility] Comment on above: Order Comment: COLLE CTOR TO SPECIFY Performed By: #### L 400.0001 #### [facility] [address] [place], [address] Clarity (U) Clear Normal Clear [facility] Comment on above: Order Comment: COLLE CTOR TO SPECIFY Performed By: #### L 400.0001 #### [facility] [address] [place], [address] Color (U) Yellow Normal Yellow [facility] Comment on above: Order Comment: COLLE CTOR TO SPECIFY Performed By: #### L 400.0001 #### [facility] [address] [place], [address] GLUCOSE, UR Normal Normal Normal [facility] Comment on above: Order Comment: SAI CTOR TO SPECIFY Performed By: #### L 400.0001 #### [facility] [address] [place], [address] KETONE UR Negative Normal Negative [facility] Comment on above: Order Comment: SAI CTOR TO SPECIFY Performed By: #### L 400.0001 #### [facility] [address] [place], [address] LEUK ESTERASE Negative Normal Negative [facility] Comment on above: Order Comment: SAI CTOR TO SPECIFY Performed By: #### L 400.0001 #### [facility] [address] [place], [address] Nitrite Ql (U) Negative Normal Negative [facility] Comment on above: Order Comment: SAI CTOR TO SPECIFY Performed By: #### L 400.0001 #### [facility] [address] [place], [address] OCCULT BLOOD-UR Negative Normal Negative [facility] Comment on above: Order Comment: SAI CTOR TO SPECIFY Performed By: #### L 400.0001 #### [facility] [address] [place], [address] pH UR 6.0 Normal 5.0 - 8.0 [facility] Comment on above: Order Comment: SAI CTOR TO SPECIFY Performed By: #### L 400.0001 #### [facility] [address] [place], [address] PROT DIPSTX 15 mg/dl Abnormal Negative [facility] Comment on above: Order Comment: SAI CTOR TO SPECIFY Performed By: #### L 400.0001 #### [facility] [address] [place], [address] SP.GR. DIPSTX 1.015 Normal 1.002-1.030 [facility] Comment on above: Order Comment: SAI CTOR TO SPECIFY Performed By: #### L 400.0001 #### [facility] [address] [place], [address] UROBILI Normal Normal Normal [facility] Comment on above: Order Comment: SAI CTOR TO SPECIFY Performed By: #### L 400.0001 #### [facility] [address] [place], [address] BACTERIA 0 SEEN Normal None Seen [facility] Comment on above: Order Comment: SAI CTOR TO SPECIFY Performed By: #### L 400.0001 #### [facility] [address] [place], [address] EPI,SQUAMOUS 0 SEEN Normal [address] [place] [address] Comment on above: Order Comment: SAI CTOR TO SPECIFY Performed By: #### L 400.0001 #### [facility] [address] [place], [address] Mucus Ql (Urine sed) 0 SEEN Normal [facility] Comment on above: Order Comment: SAI CTOR TO SPECIFY Performed By: #### L 400.0001 #### [facility] [address] [place], [address] RBC 0 SEEN Normal [address] [place] [address] Comment on above: Order Comment: SAI CTOR TO SPECIFY Performed By: #### L 400.0001 #### [facility] [address] [place], [address] WBC 0 SEEN Normal 0-5 [facility] Comment on above: Order Comment: COLLE CTOR TO SPECIFY Performed By: #### L 400.0001 #### [facility] [address] [place], [address] Urgent Care Visit Reporton 0 06-02-2024 Urgent Care Visit Report [facility] [address], [address] [place], [place] [address] OFFICE VISIT Date of Service: 06/02/24 MR#: [id number] Acct: [id number] Name: LEE TADEO Rep #: [id number] : 1940 Provider: WALLACE Bhakta Age/Sex: 84/M Location: [facility] Status: Signed Intake Vital Signs 11/15/23 10:21 06/02/24 10:06 Height 6 ft Weight: 207 lb BMI 28.0 BP 134/66 H Blood Pressure Location Lt brachial Position Sitting Respiration 17 Pulse 94 Pulse Source NIBP Temp 97.7 F L Temp Source Oral Pulse Oximetry (%) 96 Oxygen Delivery Method room air Intake Visit Reasons: SINUS DRAINAGE Chief Complaint: cough, drainage, chest/nasal congest [employer] Required: No Is patient in pain?: No Allergies venom-honey bee Allergy (Verified 06/02/24 10:07) Hives hydrocodone Adverse Reaction (Verified 06/02/24 10:07) Upset Stomach oxycodone Adverse Reaction (Verified 06/02/24 10:07) Upset Stomach Medications ???Medication ???Instructions ???Recorded ???Confirmed ???Type citalopram 40 mg tablet 20 mg PO DAILY 07/08/18 11/15/23 History multivitamin (Daily Multi-Vitamin 1 tab PO DAILY 07/08/18 11/15/23 History tablet) pravastatin 80 mg tablet 80 mg PO DAILY 07/08/18 11/15/23 History lisinopril 10 mg tablet 5 mg PO DAILY 05/09/20 11/15/23 History omega-3 fatty acids 1,000 mg 1,000 mg PO DAILY 06/13/20 11/15/23 History capsule (Fish Oil Concentrate) pantoprazole 40 mg tablet,delayed 40 mg PO DAILY 06/13/20 11/15/23 History release polyethylene glycol 3350 17 17 g PO DAILY 06/13/20 11/15/23 History gram/dose oral powder (Miralax) apixaban 5 mg tablet (Eliquis) 5 mg PO BID 01/22/22 11/15/23 History nifedipine 30 mg tablet,extended 30 mg PO DAILY #90 tabs 02/12/22 11/15/23 Rx release albuterol sulfate 90 mcg/actuation 2 puff inhalation Q4-6H PRN 05/07/24 05/07/24 Rx aerosol inhaler shortness of breath or wheezing #6.7 grams amoxicillin 875 mg-potassium 1 tab PO Q12H 10 days #20 tabs 06/02/24 06/02/24 Rx clavulanate 125 mg tablet pseudoephedrine 60 mg-DM 15 1 tab PO Q4-6H PRN cold symptoms 06/02/24 06/02/24 Rx mg-guaifenesin 400 mg tablet #20 tabs (Capmist DM) Have you fallen in the past year?: No Nurse's Note: cough, drainage, chest/nasal congest x 1 week without resolve. trying multiple otc meds with no relief. denies fever, NOLAN, ST. declines covid as he had that a few weeks ago and does not currently "feel that bad". [facility] Medical History (Updated 05/07/24 @ 08:39 by Steve Power BEHAVIORAL SCIENTIST, BEHAVIORAL SCIENTIST-C) Impingement of right shoulder Right shoulder pain Dysuria Urinary incontinence Prostate cancer A-fib H/O TIA (transient ischemic attack) and stroke hypertension tonsilectomy Appendiceal Removal Gallbladder Removal spinal fusion Surgical History H/O colonoscopy History of appendectomy History of cholecystectomy History of back surgery ( 12/2017) History of left knee replacement Social History Smoking Status: Former smoker alcohol intake: never substance use type: does not use HPI HPI Chief Complaint: cough, drainage, chest/nasal congest Details: LEE TADEO, is a 84 M who presents to the office today for complaint of cough, nasal congestion and pressure as well as chest congestion for the past week to 10 days without resolution. Patient has tried multiple rknw-xch-ovpyzjw medications with no relief. He denies fever, chills, sweats. No nausea, vomiting or diarrhea. No loss of taste or smell. No other associated symptoms or alleviating/aggravati ng factors. ROS Const Constitutional: Positive for other (6 system ROS completed with pertinent findings in the HPI otherwise normal.) Exam Const General: cooperative and healthy appearing HENMT Head: normal to inspection Ears: hearing grossly normal bilaterally, TM's normal bilaterally and EAC's normal Nose: nasal discharge purulent Face and sinus: sinus tenderness frontal and maxillary Mouth: oral mucosae normal Throat: abnormal tonsil bilaterally erythema and hypertrophy 1+ and postnasal drainage Resp Effort Inspection: normal respiratory effort Auscultation: Bilateral: Clear to Auscultation Cardio Palpation: normal PMI Rate: regular rate Rhythm: regular rhythm Neuro General: patient alert and CN's II-XI intact bilaterally Psych Appearance: grossly normal Mental Status: mental status grossly normal Coding Level of Care Code Off vis,est,level 3 Diagnoses Acute sinusitis J01.90 Assessment and Plan Assessment and Plan (1) Acute sinusitis: Status: Acute Plan: Augmentin and Capmist as prescribed today. Encouraged to get plenty of rest, drink lots of clear liq (more content not included)... Normal [facility] Urgent Care Visit Reporton 1 07-08-2023 Urgent Care Visit Report [facility] [address], [address] [place] [address] OFFICE VISIT Date of Service: 05/07/24 MR#: [id number] Acct: [id number] Name: LEE TADEO RENE Rep #: [id number] : 1940 Provider: CAL poole Age/Sex: 83/M Location: [facility] Status: Signed Intake Vital Signs 11/15/23 10:21 05/07/24 08:30 Height 6 ft Weight: 207 lb BMI 28.0 BP 116/80 Blood Pressure Location Lt brachial Position Sitting Respiration 17 Pulse 82 Pulse Source NIBP Temp 97.8 F Temp Source Oral Pulse Oximetry (%) 96 Oxygen Delivery Method room air Intake Visit Reasons: SORE THROAT, COUGH Chief Complaint: ST, cough, BA, NOLAN, fatigue, drainage [employer] Ticketer Required: No Is patient in pain?: No Allergies venom-honey bee Allergy (Verified 05/07/24 08:31) Hives hydrocodone Adverse Reaction (Verified 05/07/24 08:31) Upset Stomach oxycodone Adverse Reaction (Verified 05/07/24 08:31) Upset Stomach Have you fallen in the past year?: No Nurse's Note: ST, cough, BA, NOLAN, fatigue, drainage x 4 days PFSH Medical History (Updated 05/07/24 @ 08:39 by Steve Power BEHAVIORAL SCIENTIST, BEHAVIORAL SCIENTIST-C) Impingement of right shoulder Right shoulder pain Dysuria Urinary incontinence Prostate cancer A-fib H/O TIA (transient ischemic attack) and stroke hypertension tonsilectomy Appendiceal Removal Gallbladder Removal spinal fusion Surgical History H/O colonoscopy History of appendectomy History of cholecystectomy History of back surgery ( 12/2017) History of left knee replacement Social History Smoking Status: Former smoker alcohol intake: never substance use type: does not use HPI HPI Chief Complaint: ST, cough, BA, NOLAN, fatigue, drainage Details: LEE TADEO, is a 83 M who presents to the office today for concerns regarding sore throat, cough, body ache, headache, fatigue, and nasal drainage for 4 days. Prior to evaluation he underwent COVID and flu rapid testing. This has been ongoing for two days. He thought it to be improving, but noted worsening fatigue today. He states Tmax 99. He states one known sick contact. He states he has received one COVID-19 vaccination and did receive flu vaccination this season. ROS Const Constitutional: Positive for body ache, fatigue and headache(s); No chills, fever(s) or change in appetite Eyes Eyes: No blurry vision, change in vision, double vision, irritation, discharge, vision loss, dry eyes, bulging eyes, floaters, visual disturbances, eye pain, Light sensitivity, spots in vision, tunnel vision or other ENT ENT: Positive for nasal discharge, headache(s) and sore throat; No ear or mastoid pain, ear discharge, ear pressure, tinnitus, dizziness/vertigo, nosebleed/epistaxis, nasal congestion, nose pain, sinus pressure, sinus pain, post nasal drip, facial pain, dental pain, difficulty swallowing, bad breath, hoarseness, lip swelling, mouth lesions, mouth pain, neck pain, tongue swelling or throat swelling Resp Respiratory: Positive for cough; No change in phlegm color, chest congestion, hemoptysis, pain on inspiration, shortness of breath, pain with cough, stridor or wheezing Cardio Cardiology: No chest pain at rest, chest pain with exertion, shortness of breath, dyspnea on exertion or lightheadedness Gastro GI: No abdominal pain, change in bowel habits or difficulty swallowing Genitourinary Male: No burning urination or urinary frequency Musc Musculoskeletal: No joint pain or neck pain Skin Skin: No rash Neuro Neurology: Positive for headache(s); No visual disturbances Psych Psychiatric: No change in appetite Endo Endocrine: Positive for fatigue Aller/Imm Allergy/Immunologic: No lip swelling, throat swelling, tongue swelling or wheezing Exam Const General: cooperative, healthy appearing, comfortable and no acute distress Orientation: alert, awake and oriented x3 HENMT Head: normal to inspection and normocephalic Ears: hearing grossly normal bilaterally, external ears normal and TM's normal bilaterally Nose: external nose normal, nares normal and no nasal discharge Face and sinus: normal facial exam and sinuses nontender Mouth: oral mucosae normal, lip normal, tongue normal, oropharynx normal and moist mucous membranes Throat: posterior oropharynx normal, tonsils normal, uvula midline and no postnasal drainage Eyes General: appearance normal, both eyes and all related structures Neck Neck: normal visual inspection and no lymphadenopathy Carotids: normal carotid upstroke Lymphatic: no lymphadenopathy noted Chest Chest palpation inspection: normal inspection of the chest Resp Effort Inspection: normal respiratory effort, able to speak in complete se (more content not included)... Normal [facility] CNOVon 04-14-2024 CNOV Office Visit (ORMDNA ) LEE TADEO ([id number]) 1940 M Date Time Provider Department 04/14/24 12:15 PM RADHA SUAREZ During your visit today, we recorded the following information about you: Radha Suarez DO 04/15/2024 11:05 AM Signed Follow Up Visit Chief Complaint Lee Tadeo is a 83 year old male who presents today for follow up office visit. Patient presents with: Right Thumb - Follow Up, Established Patient, Pain Left Thumb - Established Patient, Follow Up, Pain History of Present Illness PAIN EVALUATION 04/14/2024 1228 Pain Level: 2 Pain Location: -- bilateral hands Description: Sore;Aching Duration Amount of Time: -- ongoing Frequency: Intermittent HPI: Lee Tadeo is a 83 year old male for a follow up visit . Here for cmc injections, states previous injections have worked, now would like repeat injection. Pain history is noted as above. Discussed with patient possible options for treatment. Patient elected proceed with injection. Patient told not to submerge the injected area for 24 hours in a hot tub, or bath, injection may take 2 weeks for improvement to be noticed, follow-up in 2 -6 weeks if symptoms do not resolve. All questions answered patient agreement of plan. Apply ice Limit activities as discussed Rest Do not submerge limb in water for 24 hours Cont current meds Watch sugars/decrease carbs Call if warm/hot/red Discussed with patient that if the injection does not work after 2 to 4 weeks to come back for reevaluation. Discussed the next 3 days may feel worse before it feels better. Discussed if having continued pain to return. May get injection every 3 months Is there any overall improvement in your condition? No Any new injury, since being seen last: No REVIEW OF SYMPTOMS: Patient did not have, and does not currently have, any weight loss, malaise, fever, chills, headache, chest pain, chest pressure, palpitations, cough, shortness of breath, orthopnea, paroxsymal nocturnal dyspnea, nausea, vomiting, diarrhea, constipation, melena, hematochezia, urinary difficulties, prolonged bleeding, easily bruising, heat or cold intolerance, new onset joint pain or swelling, new onset extremity weakness or numbness, new onset auditory or visual disturbances, lightheadedness, dizziness, partial loss of consciousness or full loss of consciousness. Current Outpatient Medications Medication Sig NIFEdipine XL (ADALAT CC) 30 mg 24 hr tablet Take 1 tablet by mouth every afternoon. citalopram (CELEXA) 20 mg tablet Take 20 mg by mouth once daily. apixaban (ELIQUIS) 5 mg tab(s) Take by mouth twice daily. polyethylene glycol 3350 (CLEARLAX ORAL) Take by mouth. omega-3 fatty acids (FISH OIL CONCENTRATE) 1,000 mg cap Take by mouth twice daily. multivit with minerals/lutein (MULTIVITAMIN 50 PLUS ORAL) Take 1 tablet by mouth once daily. CLENPIQ 10 mg-3.5 gram -12 gram/160 mL soln Use as instructed. lisinopril (ZESTRIL, PRINIVIL) 5 mg tablet Take 5 mg by mouth once daily. CPAP acetaminophen (TYLENOL) 500 mg tablet Take 1,000 mg by mouth as needed. DOCOSAHEXANOIC ACID/EPA (FISH OIL ORAL) Take 1,200 mg by mouth once daily. celecoxib(CELEBREX 200 MG CAP) Take 200 mg by mouth once daily. PANTOPRAZOLE 40 MG TAB, DELAYED RELEASE Take by mouth twice daily. Swallow whole. DO NOT crush or break. esomeprazole (NEXIUM) 40 mg capsule Take 1 capsule by mouth once daily. keTORolac (TORADOL) 10 mg tablet Take 1 tablet by mouth every 8 hours as needed. (Patient not taking: Reported on 01/29/2022) SUCRALFATE ORAL Take by mouth. (Patient not taking: Reported on 01/29/2022) citalopram (CELEXA) 40 mg tablet Take 40 mg by mouth once daily. (Patient not taking: Reported on 01/29/2022) pravastatin (PRAVACHOL) 80 mg tablet Take 80 mg by mouth once daily. rivaroxaban (XARELTO) 15 mg tablet Take 20 mg by mouth once daily. (Patient not taking: Reported on 01/29/2022) suvorexant (BELSOMRA) 20 mg tab Take 1/2 tablet by mouth at bedtime as needed. No current facility-administered medications for this visit. Physical Exam Vitals: There were no vitals taken for this visit. Psych: Pleasant, good affect and mood General Appearance: Well appearing, alert, in no acute distress, well-hydrated, well nourished.. Skin: Skin color, texture, turgor normal, no suspicious rashes or lesions. Peripheral Pulses: Normal. Neurologic: Gait normal. Reflexes normal and symmetric. Sensation grossly intact.. Lymph Nodes: No cervical lymphadenopathy, No supraclavicular lymphadenopathy, No axillary lymphadenopathy., and No inguinal lymphadenopathy.. Respiratory: No recent pulmonary infection, hemoptysis, chronic cough, or shortness of breath at rest Rheumatologic: Joint deformities: Bilateral cmc pain Ortho Exam Assessment and Plan Radiographs: I have independe (more content not included)... Normal [facility] Small Joint Arthro/Inj: bila teral thumb CMCon 04-14-2024 Radha Suarez DO 04/15/2024 11:05 AM Small Joint Arthro/Inj: bilateral thumb CMC Informed Consent Consent Obtained: Verbal [place] Protocol A moment to CARE was completed. SIGN IN Personnel directly involved with the procedure wore the appropriate PPE. Special Equipment: Yes Patient/Surrogate Stated/Verified: Patient name, Date of , Relevant allergies and Intended procedure TIME OUT Intended patient and procedure match the source document(s). Consent documented and matches the intended procedure. Relevant labs, photos, and/or imaging studies have been reviewed. No correct side/site applicable for marking and visibility. Medications required for procedure verified. Fire risk assessed and interventions discussed. No implant(s) inserted. 04/14/2024 11:02 AM The procedure site was prepped in the usual sterile fashion. Medications (Right): 10 mg triamcinolone acetonide 10 mg/mL Medications (Left): 10 mg triamcinolone acetonide 10 mg/mL Anesthetics (Right): 1 mL BUPivacaine (PF) 0.5 % (5 mg/mL) Anesthetics (Left): 1 mL BUPivacaine (PF) 0.5 % (5 mg/mL) Outcome: tolerated well, no immediate complications Post-injection instructions were reviewed with the patient and the patient voiced understanding of these instructions. SIGN OUT All instruments, equipment, possible retained foreign bodies accounted for. 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 Mild osteoarthritic change and multiple DIP joints bilaterally. No erosions or focal soft tissue swelling. No fracture. IMPRESSION: Progressive degenerative changes. Evaporator Helper: PSCB Transcribe Date/Time: Apr 18 2024 7:05A Dictated by : RENE PEREZ MD This examination was interpreted and the report reviewed and electronically signed by: RENE PEREZ MD on Apr 18 2024 7:06AM EST [id number] N [facility] XR RIBS 2 VIEWS LEFT/PA CHES T(AO)on 02-16-2024 XR RIBS 2 VIEWS LEFT/PA CHEST(AO) ORIGINAL EXAMINATION: 4 XRAY VIEWS OF LEFT RIBS WITH 1 x-ray view OF THE CHEST 02/15/2024 11:20 am COMPARISON: Chest x-ray on 05/04/2021. Thoracic spine x-ray on 02/15/2024 HISTORY: ORDERING SYSTEM PROVIDED HISTORY: Reason for Exam: left lower rib pain FINDINGS: Chest x-ray demonstrates the heart size and mediastinal contours are normal. There is no lung infiltrate or edema. No pneumothorax or pleural fluid is present. X-rays of the left ribs demonstrate no left rib fracture or osseous lesion. No acute skeletal abnormality is detected. IMPRESSION: 1. No acute cardiopulmonary abnormality. 2. No left rib fracture. Interpreted by: Vasquez Thomason MD Preliminary Report By: Vasquez Thomason MD Electronically signed By Vasquez Thomason MD Dictated Date: 02/16/2024 1:56:46 AM Prelim Date: 02/16/2024 1:58:54 AM Sign Date: 02/16/2024 1:58:54 AM Ordering Provider: [facility] XR SPINE LUMBAR AP/LATon XR SPINE LUMBAR AP/LAT ORIGINAL EXAMINATION: 3 XRAY VIEWS OF THE LUMBAR SPINE 02/15/2024 11:20 am COMPARISON: CT abdomen and pelvis on 03/31/2021. Lumbar spine x-ray on 09/02/2023. HISTORY: ORDERING SYSTEM PROVIDED HISTORY: Reason for Exam: left low back pain FINDINGS: There are 5 lumbar vertebrae. Instrumented posterior screw and erika fixation of L4 and L5 has been performed. Laminectomy at the L4 level has also been performed. Lumbar spine alignment demonstrates 1.5 cm of anterior subluxation of L4 on L5 that is unchanged. There is 8 mm of retrolisthesis of L2 on L3 that is also stable. Mild dextroconvex curvature is unchanged. Vertebral bodies are normal in height with no acute fracture. There is advanced degenerative disc disease at L1-L2 and L2-L3 with disc space narrowing and endplate osteophytosis. There is moderate degenerative disc disease at L 3- L4. Posterior elements show moderate multilevel facet arthropathy without evidence of spondylolysis. The sacroiliac joints are normal. IMPRESSION: 1. Instrumented posterior screw and erika fixation of L4 and L5. 2. 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 3. Advanced multilevel spondylosis, with no acute abnormality detected. Interpreted by: Vasquez Thomason MD Preliminary Report By: Vasquez Thomason MD Electronically signed By Vasquez Thomason MD Dictated Date: 02/16/2024 2:12:29 AM Prelim Date: 02/16/2024 2:17:45 AM Sign Date: 02/16/2024 2:17:45 AM Ordering Provider: [facility] XR SPINE THORACIC 2 VIEWSon 02-16-2024 XR SPINE THORACIC 2 VIEWS ORIGINAL EXAMINATION: 3 XRAY VIEWS OF THE THORACIC SPINE 02/15/2024 11:20 am COMPARISON: Chest x-ray on 01/14/2018 and 02/15/2024 HISTORY: ORDERING SYSTEM PROVIDED HISTORY: Reason for Exam: left lower rib pain Chronic back pain FINDINGS: The thoracic spine alignment demonstrates mild dextroconvex curvature. There is no subluxation. Vertebral bodies are normal in height with no fracture. There is moderate multilevel disc space narrowing and endplate osteophytic spur formation. Visible portions of posterior elements and ribs show no sign of abnormality. IMPRESSION: 1. Moderate multilevel thoracic spondylosis. 2. No fracture or subluxation. Interpreted by: Vasquez Thomason MD Preliminary Report By: Vasquez Thomason MD Electronically signed By Vasquez Thomason MD Dictated Date: 02/16/2024 1:59:07 AM Prelim Date: 02/16/2024 2:01:07 AM Sign Date: 02/16/2024 2:01:07 AM Ordering Provider: ANA Sultana [facility] Basophil percentageOrdered B y: Skip Johnson on 09-14-2023 Basophil percentage 0-5 SEEN /hpf 0-5 [facility] Bilirubin Test strip Ql (U)O rdered By: Skip Johnson on 09-14-2023 Bilirubin Ql (U) Negative Negative [facility] Culture, urineOrdered By: St gabriela Johnson on 09-14-2023 Bacteria identified Cx Nom (U) Culture exhibits no growth. [facility] Ketones Test strip Ql (U)Ord ered By: Skip Johnson on 09-14-2023 Ketones Ql (U) Negative Negative [facility] Laboratory - Chemistry and C hemistry - challengeon 09-14-2023 Bilirubin Ql (U) Negative [facility] Glucose Ql (U) Negative [facility] Ketones Ql (U) Negative [facility] pH (U) 5.0 [pH] [facility] Specific gravity (U) [Rel density] 1.020 [facility] Urobilinogen (U) [Mass/Vol] Negative [facility] Laboratory - Hematology and Cell countson 09-14-2023 Hemoglobin Ql (U) Negative [facility] Laboratory - Specimen inform ationon 09-14-2023 Clarity (U) Clear [facility] Color (U) DARK YELLOW [facility] Laboratory - Urinalysison Nitrite Ql (U) Negative [facility] Protein Ql (U) Negative [facility] Mucus LM Ql (Urine sed)Order ed By: Skip Johnson on 09-14-2023 Mucus Ql (Urine sed) 0 SEEN /hpf [facility] Nitrite Test strip Ql (U)Ord ered By: Skip Johnson on 09-14-2023 Nitrite Ql (U) Negative Negative [facility] No Panel InformationOrdered By: Skip Johnson on 09-14-2023 Urine RBC 0 SEEN /hpf 0-5 [facility] No Panel Informationon 09-13 Urine Leukocytes Negatve [facility] Urine Non-Hemolyzed Blood Negative [facility] Protein Test strip Ql (U)Ord ered By: Skip Johnson on 09-14-2023 Protein Ql (U) Negative Negative [facility] Squamous epithelial cells de tection in urine sediment by light microscopyOrdered By: Skip Johnson on 09-14-2023 Epithelial cells.squamous LM Ql (Urine sed) 0 SEEN /hpf 0-5 [facility] Urine blood detectionOrdered By: Skip Johnson on 09-14-2023 RBC Ql (U) Negative Negative [facility] Urine clarityOrdered By: Alfredito Johnson on 09-14-2023 Clarity (U) Clear Clear [facility] Urine color determinationOrd ered By: Skip Johnson on 09-14-2023 Color (U) Yellow Yellow [facility] Urine glucose detectionOrder ed By: Skip Johnson on 09-14-2023 Glucose Ql (U) Normal mg/dl Normal [facility] Urine leukocyte esterase det ection by dipstickOrdered By: Skip Johnson on 09-14-2023 Leukocyte esterase Test strip Ql (U) Negative Negative [facility] Urine pHOrdered By: Skip whitt on 09-14-2023 pH (U) 5.0 [pH] 5.0 - 8.0 [facility] Urine sediment bacteria coun t by microscopy (number/high power field)Ordered By: Skip Johnson on 09-14-2023 Bacteria LM.HPF (Urine sed) [#/Area] 0 /[HPF] None Seen [facility] Urine specific gravity measu rementOrdered By: Skip Johnson on 09-14-2023 Specific gravity (U) [Rel density] 1.020 1.002-1.030 [facility] Urine urobilinogen measureme ntOrdered By: Skip Johnson on 09-14-2023 Urobilinogen Ql (U) Normal mg/dl Normal [facility] .GFRon 05-28-2023 GFR Non- 41 ml/min/1.73sqm Normal [facility] ([place]) Comment on above: Result Comment: GFR Population mean for , Non- Americans Ages 20-29 = 116 mL/min/1.73 sq.m. Ages 30-39 = 107 mL/min/1.73 sq.m. Ages 40-49 = 99 mL/min/1.73 sq.m. Ages 50-59 = 93 mL/min/1.73 sq.m. Ages 60-69 = 85 mL/min/1.73 sq.m. Ages 70+ = 75 mL/min/1.73 sq.m. Chronic Kidney Disease: Less than 60 mL/min/1.73 square meters End Stage Renal Disease: Less than 15 mL/min/1.73 square meters Performed By: #### G FR, BMP ####[id number] [place], [place] [address] GFR 50 ml/min/1.73sqm Normal [facility] ([place]) Comment on above: Result Comment: GFR Population mean for , Non- Americans Ages 20-29 = 116 mL/min/1.73 sq.m. Ages 30-39 = 107 mL/min/1.73 sq.m. Ages 40-49 = 99 mL/min/1.73 sq.m. Ages 50-59 = 93 mL/min/1.73 sq.m. Ages 60-69 = 85 mL/min/1.73 sq.m. Ages 70+ = 75 mL/min/1.73 sq.m. Chronic Kidney Disease: Less than 60 mL/min/1.73 square meters End Stage Renal Disease: Less than 15 mL/min/1.73 square meters Performed By: #### G FR, BMP ####[id number] [place], [place] [address] [id number] 05-28-2023 Vitamin B1 Whl Bld 155.2 nmol/L Normal 66.5-200.0 [facility] ([place]) Comment on above: Result Comment: This test was developed and its performance characteristics determined by [employer]. It has not been cleared or approved by the Food and Drug Administration. Performed At: [facility] [id number] Howie Brito MD Ph:[phone] Performed By: #### V IDH, [id number], CBC, TSH, CMP, LIPID, FT4, ADIFF, A1C, ANEU, GFR ####[address] [place], [place] [address]#### B12, FOL ####Jake [address] [place] [address] BMPon 05-28-2023 BUN/Creatinine Ratio 17 ratio Normal 7-27 [facility] ([place]) Comment on above: Performed By: #### Eleno BRIDGES, BMP ####[address] [place], [place] [address] BMPOrdered By: SYSTEM SYSTEM on 05-28-2023 Calcium [Mass/Vol] 8.6 mg/dL Normal 8.4-10.2 AO ADM SS Comment on above: Performed By: #### Eleno BRIDGES, BMP ####[address] [place], [place] [address] Chloride [Moles/Vol] 105 mmol/L Normal 98-107 AO A DM SS Comment on above: Performed By: #### Eleno BRIDGES, BMP ####[address] [place], [place] [address] CO2 [Moles/Vol] 26 mmol/L Normal 23-31 AO ADM SS Comment on above: Performed By: #### Eleno BRIDGES, BMP ####[address] [place], [place] [address] Creatinine [Mass/Vol] 1.63 mg/dL High 0.70-1.30 AO ADM SS Comment on above: Performed By: #### Eleno BRIDGES, BMP ####[address] [place], [place] [address] Electrolyte Balance 11.0 mEq/L Normal 4.0-15.0 AO AD M SS Comment on above: Performed By: #### Eleno FR, BMP ####[address] [place], [place] [address] Glucose [Mass/Vol] 105 mg/dL Normal 83-110 AO ADM SS Comment on above: Performed By: #### Eleno FR, BMP ####[address] [place], [place] [address] Potassium [Moles/Vol] 4.1 mmol/L Normal 3.5-5.1 AO ADM SS Comment on above: Performed By: #### G FR, BMP ####[address] [place], [place] [address] Sodium [Moles/Vol] 142 mmol/L Normal 136-145 AO ADM SS Comment on above: Performed By: #### G FR, BMP ####[address] [place], [place] [address] Urea nitrogen [Mass/Vol] 28 mg/dL High 7-18 AO ADM SS Comment on above: Performed By: #### Eleno , BMP ####[address] [place], [place] [address] LABORATORYOrdered By: SYSTEM SYSTEM on 05-28-2023 GFR/1.73 sq M.predicted among blacks MDRD (S/P/Bld) [Vol rate/Area] 50 ml/min/1.73sqm Invalid Interpretation Code AO Chemistry S Comment on above: Interpretive Data: GFR Population mean for , Non- Americans Ages 20-29 = 116 mL/min/1.73 sq.m. Ages 30-39 = 107 mL/min/1.73 sq.m. Ages 40-49 = 99 mL/min/1.73 sq.m. Ages 50-59 = 93 mL/min/1.73 sq.m. Ages 60-69 = 85 mL/min/1.73 sq.m. Ages 70+ = 75 mL/min/1.73 sq.m. Chronic Kidney Disease: Less than 60 mL/min/1.73 square meters End Stage Renal Disease: Less than 15 mL/min/1.73 square meters GFR/1.73 sq M.predicted among non-blacks MDRD (S/P/Bld) [Vol rate/Area] 41 ml/min/1.73sqm Invalid Interpretation Code AO Chemistry S Comment on above: Interpretive Data: GFR Population mean for , Non- Americans Ages 20-29 = 116 mL/min/1.73 sq.m. Ages 30-39 = 107 mL/min/1.73 sq.m. Ages 40-49 = 99 mL/min/1.73 sq.m. Ages 50-59 = 93 mL/min/1.73 sq.m. Ages 60-69 = 85 mL/min/1.73 sq.m. Ages 70+ = 75 mL/min/1.73 sq.m. Chronic Kidney Disease: Less than 60 mL/min/1.73 square meters End Stage Renal Disease: Less than 15 mL/min/1.73 square meters Urea nitrogen/Creatinine [Mass ratio] 17 ratio Normal 7 - 27 ratio AO ADM SS XR HAND MINIMUM 3 VIEWS LEFT on 05-22-2023 XR HAND MINIMUM 3 VIEWS LEFT ORIGINAL EXAMINATION: THREE XRAY VIEWS OF THE LEFT HAND 05/21/2023 3:29 pm COMPARISON: None. HISTORY: ORDERING SYSTEM PROVIDED HISTORY: Reason for Exam: left hand puncture between thumb and index finger posteriorly FINDINGS: There is no acute fracture or dislocation of the left hand. There is moderate arthritic narrowing at the 1st carpometacarpal joint. There is also moderate arthritic narrowing of distal interphalangeal joints. Well corticated ossific densities are seen dorsal to the distal interphalangeal joints of the 2nd, 3rd, and 4th fingers that appear to be chronic fractures of the degenerative spurs. No foreign body is present in the soft tissue. No soft tissue gas is seen. IMPRESSION: No acute fracture or dislocation of the left hand. Moderate osteoarthritis. Chronic fractures of the degenerative spurs at the distal interphalangeal joints of the 2nd, 3rd, and 4th fingers. Interpreted by: Vasquez Thomason MD Preliminary Report By: Vasquez Thomason MD Electronically signed By Vasquez Thomason MD Dictated Date: 05/22/2023 6:25:38 PM Prelim Date: 05/22/2023 6:27:56 PM Sign Date: 05/22/2023 6:27:56 PM Ordering Provider: ANA Sultana [facility] ([place]) .Auto Diffon 05-21-2023 Basophil, Absolute 0.0 10 3/mcL Normal 0.0-0.2 [facility] ([place]) Comment on above: Performed By: #### V IDH, [id number], CBC, TSH, CMP, LIPID, FT4, ADIFF, A1C, ANEU, GFR #### [address] [place], [place] [address] #### B12, FOL #### [address] [address] Basophils/100 WBC (Bld) 0.9 % Normal 0.0-2.5 A [facility] ([place]) Comment on above: Performed By: #### V IDH, [id number], CBC, TSH, CMP, LIPID, FT4, ADIFF, A1C, ANEU, GFR #### [address] [address] #### B12, FOL #### [address] [address] Eosinophil, Absolute 0.1 10 3/mcL Normal 0.0-0.4 [facility] ([place]) Comment on above: Performed By: #### V IDH, [id number], CBC, TSH, CMP, LIPID, FT4, ADIFF, A1C, ANEU, GFR #### [address] [address] #### B12, FOL #### [address] [address] Eosinophils/100 WBC (Bld) 2.4 % Normal 0.0-7.0 [facility] ([place]) Comment on above: Performed By: #### V IDH, [id number], CBC, TSH, CMP, LIPID, FT4, ADIFF, A1C, ANEU, GFR #### [address] [address] #### B12, FOL #### [address] [address] Lymphocyte, Absolute 1.5 10 3/mcL Normal 0.8-3.9 [facility] ([place]) Comment on above: Performed By: #### V IDH, [id number], CBC, TSH, CMP, LIPID, FT4, ADIFF, A1C, ANEU, GFR #### [address] [address] #### B12, FOL #### [address] [address] Lymphocytes/100 WBC (Bld) 29.9 % Normal 10.0-50.0 [facility] ([place]) Comment on above: Performed By: #### V IDH, [id number], CBC, TSH, CMP, LIPID, FT4, ADIFF, A1C, ANEU, GFR #### [address] [address] #### B12, FOL #### [address] [address] Monocyte, Absolute 0.4 10 3/mcL Normal 0.2-1.0 [facility] ([place]) Comment on above: Performed By: #### V IDH, [id number], CBC, TSH, CMP, LIPID, FT4, ADIFF, A1C, ANEU, GFR #### [address] [address] #### B12, FOL #### [address] [address] Monocytes/100 WBC (Bld) 7.9 % Normal 1.7-13.0 A [facility] ([place]) Comment on above: Performed By: #### V IDH, [id number], CBC, TSH, CMP, LIPID, FT4, ADIFF, A1C, ANEU, GFR #### [address] [address] #### B12, FOL #### [address] [address] Neutrophils/100 WBC (Bld) 58.9 % Normal 37.0-80.0 [facility] ([place]) Comment on above: Performed By: #### V IDH, [id number], CBC, TSH, CMP, LIPID, FT4, ADIFF, A1C, ANEU, GFR #### [address] [address] #### B12, FOL #### [address] [address] .GFRon 05-21-2023 GFR 50 ml/min/1.73sqm Normal [facility] ([place]) Comment on above: Result Comment: GFR Population mean for , Non- Americans Ages 20-29 = 116 mL/min/1.73 sq.m. Ages 30-39 = 107 mL/min/1.73 sq.m. Ages 40-49 = 99 mL/min/1.73 sq.m. Ages 50-59 = 93 mL/min/1.73 sq.m. Ages 60-69 = 85 mL/min/1.73 sq.m. Ages 70+ = 75 mL/min/1.73 sq.m. Chronic Kidney Disease: Less than 60 mL/min/1.73 square meters End Stage Renal Disease: Less than 15 mL/min/1.73 square meters Performed By: #### V IDH, [id number], CBC, TSH, CMP, LIPID, FT4, ADIFF, A1C, ANEU, GFR ####[address] [place], [place] [address]#### B12, FOL ####[address] [address] GFR Non- 41 ml/min/1.73sqm Normal [facility] ([place]) Comment on above: Result Comment: GFR Population mean for , Non- Americans Ages 20-29 = 116 mL/min/1.73 sq.m. Ages 30-39 = 107 mL/min/1.73 sq.m. Ages 40-49 = 99 mL/min/1.73 sq.m. Ages 50-59 = 93 mL/min/1.73 sq.m. Ages 60-69 = 85 mL/min/1.73 sq.m. Ages 70+ = 75 mL/min/1.73 sq.m. Chronic Kidney Disease: Less than 60 mL/min/1.73 square meters End Stage Renal Disease: Less than 15 mL/min/1.73 square meters Performed By: #### V IDH, [id number], CBC, TSH, CMP, LIPID, FT4, ADIFF, A1C, ANEU, GFR ####[id number] [place], [place] [address]#### B12, FOL ####[address] [address] .NEUABSon 05-21-2023 Neutrophil, Absolute 3.0 10 3/mcL Normal 2.9-6.2 [facility] ([place]) Comment on above: Performed By: #### V IDH, [id number], CBC, TSH, CMP, LIPID, FT4, ADIFF, A1C, ANEU, GFR #### [address] [place], [place] [address] #### B12, FOL #### [address] [address] A1Con 05-21-2023 HbA1c (Bld) [Mass fraction] 4.6 % Normal 4.3-6.4 [facility] ([place]) Comment on above: Order Comment: stacia fontanez to [place] [facility] [employer] Performed By: #### V IDH, [id number], CBC, TSH, CMP, LIPID, FT4, ADIFF, A1C, ANEU, GFR #### [address] [address] #### B12, FOL #### [address] [address] B12on 05-21-2023 Cobalamin (Vitamin B12) [Mass/Vol] 673 pg/mL Normal 211-911 [facility] ([place]) Comment on above: Performed By: #### V IDH, [id number], CBC, TSH, CMP, LIPID, FT4, ADIFF, A1C, ANEU, GFR #### [address] [address] #### B12, FOL #### [address] [address] CBCon 05-21-2023 Erythrocyte distribution width (RBC) [Ratio] 14.4 % Normal 11.5-14.5 [facility] ([place] Comment on above: Performed By: #### V IDH, [id number], CBC, TSH, CMP, LIPID, FT4, ADIFF, A1C, ANEU, GFR #### [address] [address] #### B12, FOL #### [address] [address] Hematocrit (Bld) [Volume fraction] 33.7 % Low 42.0-52.0 [facility] ([place] Comment on above: Performed By: #### V IDH, [id number], CBC, TSH, CMP, LIPID, FT4, ADIFF, A1C, ANEU, GFR #### [address] [address] #### B12, FOL #### [address] [address] Hgb 12.7 G/dL Low 14.0-18.0 [facility] ([place] Comment on above: Performed By: #### V IDH, [id number], CBC, TSH, CMP, LIPID, FT4, ADIFF, A1C, ANEU, GFR #### [place] [address] #### B12, FOL #### [address] [address] MCH (RBC) [Entitic mass] 41.2 pg High 27.0-31.2 [facility] ([place] Comment on above: Performed By: #### V IDH, 856930, CBC, TSH, CMP, LIPID, FT4, ADIFF, A1C, ANEU, GFR #### [place] [address] #### B12, FOL #### [place] [address] MCHC 37.8 G/dL High 31.8-35.4 [facility] ([place] Comment on above: Performed By: #### V IDH, 348922, CBC, TSH, CMP, LIPID, FT4, ADIFF, A1C, ANEU, GFR #### [place] [address] #### B12, FOL #### [place] [address] MCV (RBC) [Entitic vol] 108.8 fL High 80.0-94.0 A [facility] ([place]) Comment on above: Performed By: #### V IDH, [id number], CBC, TSH, CMP, LIPID, FT4, ADIFF, A1C, ANEU, GFR #### [place] [address] #### B12, FOL #### [place] [address] Platelet 265 10 3/mcL Normal 130-400 [facility] ([place] Comment on above: Performed By: #### V IDH, 745370, CBC, TSH, CMP, LIPID, FT4, ADIFF, A1C, ANEU, GFR #### [place] [address] #### B12, FOL #### [place] [address] Platelet mean volume (Bld) [Entitic vol] 10.1 fL Normal 7.4-10.4 [facility] ([place] Comment on above: Performed By: #### V IDH, [id number], CBC, TSH, CMP, LIPID, FT4, ADIFF, A1C, ANEU, GFR #### [place] [address] #### B12, FOL #### [place] [address] RBC 3.10 10 6/mcL Low 4.04-6.13 [facility] ([place] Comment on above: Performed By: #### V IDH, 384864, CBC, TSH, CMP, LIPID, FT4, ADIFF, A1C, ANEU, GFR #### [place] [address] #### B12, FOL #### [place] [address] WBC 5.1 10 3/mcL Normal 4.6-10.8 [facility] ([place] Comment on above: Performed By: #### V IDH, 234488, CBC, TSH, CMP, LIPID, FT4, ADIFF, A1C, ANEU, GFR #### [place] [address] #### B12, FOL #### [place] [address] CMPon 05-21-2023 Albumin Level 3.9 G/dL Normal 3.4-4.8 [facility] ([place] Comment on above: Performed By: #### V IDH, 328076, CBC, TSH, CMP, LIPID, FT4, ADIFF, A1C, ANEU, GFR ####[place] [address]#### B12, FOL ####[place] [address] Albumin/Globulin [Mass ratio] 1.4 {ratio} Normal 1.1-2.5 [facility] ([place] Comment on above: Performed By: #### V IDH, [id number], CBC, TSH, CMP, LIPID, FT4, ADIFF, A1C, ANEU, GFR ####[place] [address]#### B12, FOL ####[address] [address] ALP [Catalytic activity/Vol] 124 U/L Normal 40-135 [facility] ([place] Comment on above: Performed By: #### V IDH, [id number], CBC, TSH, CMP, LIPID, FT4, ADIFF, A1C, ANEU, GFR ####[place] [address]#### B12, FOL ####[place] [address] ALT [Catalytic activity/Vol] 28 U/L Normal 16-63 [facility] ([place] Comment on above: Performed By: #### V IDH, [id number], CBC, TSH, CMP, LIPID, FT4, ADIFF, A1C, ANEU, GFR ####[place] [address]#### B12, FOL ####[place] [address] AST [Catalytic activity/Vol] 37 U/L Normal 10-40 [facility] ([place] Comment on above: Performed By: #### V IDH, 371966, CBC, TSH, CMP, LIPID, FT4, ADIFF, A1C, ANEU, GFR ####[place] [address]#### B12, FOL ####[place] [address] Bili Total 1.0 mg/dL Normal 0.2-1.0 [facility] ([place]) Comment on above: Result Comment: Use of this assay is not recommended for patients undergoing treatment with eltrombopag due to the potential for falsely elevated results. Performed By: #### V IDH, [id number], CBC, TSH, CMP, LIPID, FT4, ADIFF, A1C, ANEU, GFR ####[place] [address]#### B12, FOL ####[address] [address] BUN/Creatinine Ratio 17 ratio Normal 7-27 [facility] ([place]) Comment on above: Performed By: #### V IDH, 260963, CBC, TSH, CMP, LIPID, FT4, ADIFF, A1C, ANEU, GFR ####[place] [address]#### B12, FOL ####[address] [address] Calcium [Mass/Vol] 9.3 mg/dL Normal 8.4-10.2 Count includes the [facility] ([place]) Comment on above: Performed By: #### V IDH, 349935, CBC, TSH, CMP, LIPID, FT4, ADIFF, A1C, ANEU, GFR ####[place] [address]#### B12, FOL ####[place] [address] Chloride [Moles/Vol] 103 mmol/L Normal 98-107 [facility] ([place]) Comment on above: Performed By: #### V IDH, 831597, CBC, TSH, CMP, LIPID, FT4, ADIFF, A1C, ANEU, GFR ####[address] [address]#### B12, FOL ####[address] [address] CO2 [Moles/Vol] 28 mmol/L Normal 23-31 [facility] ([place] Comment on above: Performed By: #### V IDH, 194671, CBC, TSH, CMP, LIPID, FT4, ADIFF, A1C, ANEU, GFR ####[place] [address] [place] [address]#### B12, FOL ####[address] [address] Creatinine [Mass/Vol] 1.62 mg/dL High 0.70-1.30 [facility] ([place]) Comment on above: Performed By: #### V IDH, 861520, CBC, TSH, CMP, LIPID, FT4, ADIFF, A1C, ANEU, GFR ####[place] [address]#### B12, FOL ####[address] [address] Electrolyte Balance 8.0 mEq/L Normal 4.0-15.0 Pending sale to [facility] ([place]) Comment on above: Performed By: #### V IDH, 266939, CBC, TSH, CMP, LIPID, FT4, ADIFF, A1C, ANEU, GFR ####[place] [address]#### B12, FOL ####[address] [address] Globulin 2.7 G/dL Normal [facility] ([place] Comment on above: Performed By: #### V IDH, 948085, CBC, TSH, CMP, LIPID, FT4, ADIFF, A1C, ANEU, GFR ####[place] [address]#### B12, FOL ####[address] [address] Glucose [Mass/Vol] 86 mg/dL Normal 83-110 Count includes the [facility] ([place] Comment on above: Performed By: #### V IDH, 894838, CBC, TSH, CMP, LIPID, FT4, ADIFF, A1C, ANEU, GFR ####[place] [address]#### B12, FOL ####[address] [address] Potassium [Moles/Vol] 5.3 mmol/L High 3.5-5.1 [facility] ([place]) Comment on above: Performed By: #### V IDH, 100957, CBC, TSH, CMP, LIPID, FT4, ADIFF, A1C, ANEU, GFR ####[place] [address]#### B12, FOL ####[address] [address] Sodium [Moles/Vol] 139 mmol/L Normal 136-145 Count includes the [facility] ([place] Comment on above: Performed By: #### V IDH, 107630, CBC, TSH, CMP, LIPID, FT4, ADIFF, A1C, ANEU, GFR ####[place] [address]#### B12, FOL ####[place] [address] Total Protein 6.6 G/dL Normal 6.4-8.2 [facility] ([place] Comment on above: Performed By: #### V IDH, 937490, CBC, TSH, CMP, LIPID, FT4, ADIFF, A1C, ANEU, GFR ####[place] [address]#### B12, FOL ####[place] [address] Urea nitrogen [Mass/Vol] 28 mg/dL High 7-18 [facility] ([place] Comment on above: Performed By: #### V IDH, 103550, CBC, TSH, CMP, LIPID, FT4, ADIFF, A1C, ANEU, GFR ####[place] [address]#### B12, FOL ####[place] [address] FOLon 05-21-2023 Folate 43.52 ng/mL High 5.38-24.00 [facility] ([place] Comment on above: Performed By: #### V IDH, 985568, CBC, TSH, CMP, LIPID, FT4, ADIFF, A1C, ANEU, GFR #### [address] [address] #### B12, FOL #### [place] [address] FT4on 05-21-2023 Free T4 [Mass/Vol] 1.05 ng/dL Normal 0.76-1.46 Count includes the [facility] ([place] Comment on above: Performed By: #### V IDH, [id number], CBC, TSH, CMP, LIPID, FT4, ADIFF, A1C, ANEU, GFR ####[address] [place], [place] [address]#### B12, FOL ####[address] [address] LABORATORYOrdered By: Sarah Harvey on 05-21-2023 Albumin DL <= 20 mg/L (U) [Mass/Vol] 498 mcg/dL Invalid Interpretation Code AO ADM SS Albumin/Creatinine DL <= 20 mg/L (U) [Mass ratio] 12 mcg/mg Normal 0 - 30 mcg/mg AO ADM SS Creatinine (U) [Mass/Vol] 41.3 mg/dL Normal 39.0 - 259.0 mg/dL AO ADM SS Cholesterol [Mass/Vol] 148 mg/dL Normal 0 - 2 00 mg/dL AO ADM SS Comment on above: Interpretive Data: C holesterol Reference Interval: Less than 200 Desirable 200-239 Borderline high risk 240 and above High risk Cholesterol in HDL [Mass/Vol] 57 mg/dL Normal 40 - 60 mg/dL AO ADM SS Cholesterol in LDL [Mass/Vol] 52 mg/dL Normal 0 - 130 mg/dL AO ADM SS Triglyceride [Mass/Vol] 196 mg/dL High 0 - 150 mg/dL AO ADM SS Comment on above: Interpretive Data: T riglyceride Reference Interval: Less than 150 Normal 150-199 Borderline high risk 200-499 High risk 500 or higher Very high risk LABORATORYOrdered By: SYSTEM SYSTEM on 05-21-2023 25-hydroxyvitamin D3 [Mass/Vol] 75.1 ng/mL Invalid Interpretation Code AO ADM SS Comment on above: Interpretive Data: I nterpretive Values Based on Total 25(OH) Vitamin D: Deficient <20 ng/mL Insufficient 20 - <30 ng/mL Sufficient 30-100 ng/mL Albumin BCP dye [Mass/Vol] 3.9 G/dL Normal 3.4 - 4.8 G/dL AO ADM SS Albumin/Globulin [Mass ratio] 1.4 {ratio} Normal 1.1 - 2.5 ratio AO ADM SS ALP [Catalytic activity/Vol] 124 U/L Normal 40 - 135 U/L AO ADM SS ALT With P-5'-P [Catalytic activity/Vol] 28 U/L Normal 16 - 63 U/L AO ADM SS AST With P-5'-P [Catalytic activity/Vol] 37 U/L Normal 10 - 40 U/L AO ADM SS Basophil, Absolute 0.0 103/mcL Normal 0.0 - 0.2 10^3/mcL AO Workflow SS Basophils/100 WBC (Bld) 0.9 % Normal 0.0 - 2.5 % AO Workflow SS Bilirubin [Mass/Vol] 1.0 mg/dL Normal 0.2 - 1 .0 mg/dL AO ADM SS Comment on above: Interpretive Data: U se of this assay is not recommended for patients undergoing treatment with eltrombopag due to the potential for falsely elevated results. Calcium [Mass/Vol] 9.3 mg/dL Normal 8.4 - 10. 2 mg/dL AO ADM SS Chloride [Moles/Vol] 103 mmol/L Normal 98 - 10 7 mmol/L AO ADM SS CO2 [Moles/Vol] 28 mmol/L Normal 23 - 31 mmol/L AO ADM SS Cobalamin (Vitamin B12) [Mass/Vol] 673 pg/mL Normal 211 - 911 pg/mL AH ADM SS Creatinine [Mass/Vol] 1.62 mg/dL High 0.70 - 1.30 mg/dL AO ADM SS Electrolyte Balance 8.0 mEq/L Normal 4.0 - 15 .0 mEq/L AO ADM SS Eosinophil, Absolute 0.1 103/mcL Normal 0.0 - 0 .4 10^3/mcL AO Workflow SS Eosinophils/100 WBC (Bld) 2.4 % Normal 0.0 - 7.0 % AO Workflow SS Erythrocyte distribution width (RBC) [Ratio] 14.4 % Normal 11.5 - 14.5 % AO Workflow SS Folate [Mass/Vol] 43.52 ng/mL High 5.38 - 24. 00 ng/mL AH ADM SS Free T4 [Mass/Vol] 1.05 ng/dL Normal 0.76 - 1. 46 ng/dL AO ADM SS GFR/1.73 sq M.predicted among blacks MDRD (S/P/Bld) [Vol rate/Area] 50 ml/min/1.73sqm Invalid Interpretation Code AO Chemistry S Comment on above: Interpretive Data: GFR Population mean for , Non- Americans Ages 20-29 = 116 mL/min/1.73 sq.m. Ages 30-39 = 107 mL/min/1.73 sq.m. Ages 40-49 = 99 mL/min/1.73 sq.m. Ages 50-59 = 93 mL/min/1.73 sq.m. Ages 60-69 = 85 mL/min/1.73 sq.m. Ages 70+ = 75 mL/min/1.73 sq.m. Chronic Kidney Disease: Less than 60 mL/min/1.73 square meters End Stage Renal Disease: Less than 15 mL/min/1.73 square meters GFR/1.73 sq M.predicted among non-blacks MDRD (S/P/Bld) [Vol rate/Area] 41 ml/min/1.73sqm Invalid Interpretation Code AO Chemistry S Comment on above: Interpretive Data: GFR Population mean for , Non- Americans Ages 20-29 = 116 mL/min/1.73 sq.m. Ages 30-39 = 107 mL/min/1.73 sq.m. Ages 40-49 = 99 mL/min/1.73 sq.m. Ages 50-59 = 93 mL/min/1.73 sq.m. Ages 60-69 = 85 mL/min/1.73 sq.m. Ages 70+ = 75 mL/min/1.73 sq.m. Chronic Kidney Disease: Less than 60 mL/min/1.73 square meters End Stage Renal Disease: Less than 15 mL/min/1.73 square meters Globulin 2.7 G/dL Invalid Interpretation Code AO ADM SS Glucose [Mass/Vol] 86 mg/dL Normal 83 - 110 mg/dL AO ADM SS HbA1c (Bld) [Mass fraction] 4.6 % Normal 4.3 - 6.4 % AO ADM SS Hematocrit (Bld) [Volume fraction] 33.7 % Low 42.0 - 52.0 % AO Workflow SS Hemoglobin (Bld) [Mass/Vol] 12.7 G/dL Low 14.0 - 18.0 G/dL AO Workflow SS Lymphocyte, Absolute 1.5 103/mcL Normal 0.8 - 3 .9 10^3/mcL AO Workflow SS Lymphocytes/100 WBC (Bld) 29.9 % Normal 10.0 - 50.0 % AO Workflow SS MCH (RBC) [Entitic mass] 41.2 pg High 27.0 - 31.2 pg AO Workflow SS MCHC 37.8 G/dL High 31.8 - 35.4 G/dL AO Workflow SS MCV (RBC) [Entitic vol] 108.8 fL High 80.0 - 94.0 fL AO Workflow SS Monocyte, Absolute 0.4 103/mcL Normal 0.2 - 1.0 10^3/mcL AO Workflow SS Monocytes/100 WBC (Bld) 7.9 % Normal 1.7 - 13.0 % AO Workflow SS Neutrophil, Absolute 3.0 103/mcL Normal 2.9 - 6 .2 10^3/mcL AO Workflow SS Neutrophils/100 WBC (Bld) 58.9 % Normal 37.0 - 80.0 % AO Workflow SS Platelet mean volume (Bld) [Entitic vol] 10.1 fL Normal 7.4 - 10.4 fL AO Workflow SS Platelets (Bld) [#/Vol] 265 103/mcL Normal 130 - 400 10^3/mcL AO Workflow SS Potassium [Moles/Vol] 5.3 mmol/L High 3.5 - 5.1 mmol/L AO ADM SS Protein [Mass/Vol] 6.6 G/dL Normal 6.4 - 8.2 G/dL AO ADM SS RBC (Bld) [#/Vol] 3.10 106/mcL Low 4.04 - 6.1 3 10^6/mcL AO Workflow SS Sodium [Moles/Vol] 139 mmol/L Normal 136 - 145 mmol/L AO ADM SS TSH Qn 1.81 m[IU]/L Normal 0.36 - 3.74 mcIU/mL AO ADM SS Urea nitrogen [Mass/Vol] 28 mg/dL High 7 - 18 mg/dL AO ADM SS Urea nitrogen/Creatinine [Mass ratio] 17 ratio Normal 7 - 27 ratio AO ADM SS WBC (Bld) [#/Vol] 5.1 103/mcL Normal 4.6 - 10.8 10^3/mcL AO Workflow SS LIPIDon 05-21-2023 Cholesterol [Mass/Vol] 148 mg/dL Normal 0-200 [facility] ([place]) Comment on above: Order Comment: cc re sults to [facility] [employer] MANAGER Result Comment: Chol esterol Reference Interval: Less than 200 Desirable 200-239 Borderline high risk 240 and above High risk Performed By: #### V IDH, [id number], CBC, TSH, CMP, LIPID, FT4, ADIFF, A1C, ANEU, GFR ####[place] [id number] [address]#### B12, FOL ####[address] [address] Cholesterol in HDL [Mass/Vol] 57 mg/dL Normal 40-60 [facility] ([place]) Comment on above: Order Comment: cc re sults to [facility] [employer] SH[employer] MANAGER Performed By: #### V IDH, [id number], CBC, TSH, CMP, LIPID, FT4, ADIFF, A1C, ANEU, GFR ####[place] [address]#### B12, FOL ####[address] [address] Cholesterol in LDL [Mass/Vol] 52 mg/dL Normal 0-130 [facility] ([place]) Comment on above: Order Comment: cc re sults to [facility] [employer] SH[employer] MANAGER Performed By: #### V IDH, [id number], CBC, TSH, CMP, LIPID, FT4, ADIFF, A1C, ANEU, GFR ####[place] [address]#### B12, FOL ####[address] [address] Triglyceride [Mass/Vol] 196 mg/dL High 0-150 A [facility] ([place]) Comment on above: Order Comment: cc re sults to [facility] [employer] SH[employer] MANAGER Result Comment: Trig lyceride Reference Interval: Less than 150 Normal 150-199 Borderline high risk 200-499 High risk 500 or higher Very high risk Performed By: #### V IDH, [id number], CBC, TSH, CMP, LIPID, FT4, ADIFF, A1C, ANEU, GFR ####Jake [address] [address]#### B12, FOL ####[address] [address] MALBRon 05-21-2023 U Creatinine 41.3 mg/dL Normal 39.0-259.0 [facility] ([place]) Comment on above: Performed By: #### M ALBR #### [place] [address] [place], [place] [address] U Microalb 498 mcg/dL Normal [facility] ([place] Comment on above: Performed By: #### M ALBR #### [facility] [address] [place], [place] [address] U Ratio Alb/Cre 12 mcg/mg Normal 0-30 [facility] ([place] Comment on above: Performed By: #### M ALBR #### [facility] [address] [place], [place] [address] No Panel Informationon 05-21 Culture Wound Aerobe No growth at 48 hours. [facility] Work Phone: GS 1+ Polymorphonuclear cells No organisms seen. [facility] Work Phone: TSHon 05-21-2023 TSH Qn 1.81 m[IU]/L Normal 0.36-3.74 [facility] ([place] Comment on above: Performed By: #### V IDH, [id number], CBC, TSH, CMP, LIPID, FT4, ADIFF, A1C, ANEU, GFR #### [place] [id number] [place], [place] [address] #### B12, FOL #### [facility] [address] [place] [address] VIDHon 05-21-2023 Vit. D 25-Hydroxy 75.1 ng/mL Normal [facility] ([place] Comment on above: Result Comment: Inte rpretive Values Based on Total 25(OH) Vitamin D: Deficient <20 ng/mL Insufficient 20 - <30 ng/mL Sufficient 30-100 ng/mL Performed By: #### V IDH, [id number], CBC, TSH, CMP, LIPID, FT4, ADIFF, A1C, ANEU, GFR ####[facility] [place] [address]#### B12, FOL ####[place] [address] LABORATORYOrdered By: Paradise King on 05-04-2021 Albumin BCP dye [Mass/Vol] 3.5 G/dL Invalid Interpretation Code 3.4 - 4.8 G/dL AO ADM SS Albumin/Globulin [Mass ratio] 1.3 {ratio} Invalid Interpretation Code 1.1 - 2.5 ratio AO ADM SS ALP [Catalytic activity/Vol] 98 U/L Invalid Interpretation Code 40 - 135 U/L AO ADM SS ALT With P-5'-P [Catalytic activity/Vol] 25 U/L Invalid Interpretation Code 16 - 63 U/L AO ADM SS AST With P-5'-P [Catalytic activity/Vol] 38 U/L Invalid Interpretation Code 10 - 40 U/L AO ADM SS Bilirubin [Mass/Vol] 1.7 mg/dL Invalid Interpretation Code 0.2 - 1.0 mg/dL AO ADM SS Calcium [Mass/Vol] 8.2 mg/dL Invalid Interpretation Code 8.4 - 10.2 mg/dL AO ADM SS Chloride [Moles/Vol] 98 mmol/L Invalid Interpretation Code 98 - 107 mmol/L AO ADM SS CO2 [Moles/Vol] 24 mmol/L Invalid Interpretation Code 23 - 31 mmol/L AO ADM SS Creatinine [Mass/Vol] 1.37 mg/dL Invalid Interpretation Code 0.70 - 1.30 mg/dL AO ADM SS Electrolyte Balance 10.0 mEq/L Invalid Interpretation Code AO ADM SS Globulin 2.6 G/dL Invalid Interpretation Code AO ADM SS Glucose [Mass/Vol] 123 mg/dL Invalid Interpretation Code 83 - 110 mg/dL AO ADM SS Hematocrit (Bld) [Volume fraction] 29.5 % Invalid Interpretation Code 42.0 - 52.0 % AO Auto Heme SS Hemoglobin (Bld) [Mass/Vol] 10.5 G/dL Invalid Interpretation Code 14.0 - 18.0 G/dL AO Auto Heme SS Potassium [Moles/Vol] 4.4 mmol/L Invalid Interpretation Code 3.5 - 5.1 mmol/L AO ADM SS Protein [Mass/Vol] 6.1 G/dL Invalid Interpretation Code 6.4 - 8.2 G/dL AO ADM SS Sodium [Moles/Vol] 132 mmol/L Invalid Interpretation Code 136 - 145 mmol/L AO ADM SS Troponin I.cardiac DL <= 0.01 ng/mL [Mass/Vol] 5.8 ng/L Invalid Interpretation Code 0.0 - 76.2 ng/L AO ADM SS Urea nitrogen [Mass/Vol] 23 mg/dL Invalid Interpretation Code 7 - 18 mg/dL AO ADM SS Urea nitrogen/Creatinine [Mass ratio] 17 ratio Invalid Interpretation Code 7 - 27 ratio AO ADM SS LABORATORYOrdered By: SYSTEM SYSTEM on 12-12-2021 GFR 61 ml/min/1.73sqm Invalid Interpretation Code AO Chemistry S GFR Non- 50 ml/min/1.73sqm Invalid Interpretation Code AO Chemistry S LABORATORYOrdered By: Thelma Morales on 03-31-2021 Creatinine [Mass/Vol] 1.59 mg/dL Invalid Interpretation Code 0.70 - 1.30 mg/dL AO ADM SS LABORATORYOrdered By: SYSTEM SYSTEM on 03-31-2021 GFR 51 ml/min/1.73sqm Invalid Interpretation Code AO Chemistry S GFR Non- 42 ml/min/1.73sqm Invalid Interpretation Code AO Chemistry S Small Joint Arthro/Inj: bila teral thumb [facility] Vital Signs Date Time Vital Sign Value Performing Clinician Facility 02-28-2025 09:56-0400 Body height 182.[address] Ana Shaikh DO Work Phone: [facility] 02-28-2025 09:56-0400 Body mass index (BMI) [Ratio] 26.7 kg/m2 Dr. Ana Shaikh DO Work Phone: [facility] 02-28-2025 09:56-0400 Body weight 89.[address] Ana Shaikh DO Work Phone: [facility] 09-01-2024 08:14-0400 Body height 182.[address] Ana Shaikh DO Work Phone: [facility] 09-14-2023 06:38-0400 Body temperature 97.5 [degF] WALLACE GONSALEZ Work Phone: [facility] 09-14-2023 06:38-0400 Diastolic blood pressure 82 mm[Hg] WALLACE GONSALEZ Work Phone: [facility] 09-14-2023 06:38-0400 Heart rate 92 /min WALLACE GONSALEZ Work Phone: [facility] 09-14-2023 06:38-0400 Respiratory rate 12 /min WALLACE GONSALEZ Work Phone: [facility] 09-14-2023 06:38-0400 SaO2% (BldA) [Mass fraction] 100 % WALLACE GONSALEZ Work Phone: [facility] 09-14-2023 06:38-0400 Systolic blood pressure 122 mm[Hg] WALLACE GONSALEZ Work Phone: [facility] 05-04-2021 21:36-0500 Diastolic blood pressure 77 mm[Hg] ORION VELARDE MD [facility] 05-04-2021 21:36-0500 Heart rate 108 /min ORION VELARDE MD [facility] 05-04-2021 21:36-0500 Respiratory rate 18 /min ORION VELARDE MD [facility] 05-04-2021 21:36-0500 Systolic blood pressure 106 mm[Hg] ORION VELARDE MD [facility] 05-04-2021 20:33-0500 Body height 182.9 cm ORION VELARDE MD [facility] 05-04-2021 20:33-0500 Body temperature 99.86 [degF] ORION VELARDE MD [facility] 05-04-2021 20:33-0500 Body weight 90.9 kg ORION VELARDE MD [facility] 05-04-2021 20:33-0500 Diastolic blood pressure 79 mm[Hg] ORION VELARDE MD [facility] 05-04-2021 20:33-0500 Heart rate 98 /min ORION VELARDE MD [facility] 05-04-2021 20:33-0500 Respiratory rate 24 /min ORION VELARDE MD [facility] 05-04-2021 20:33-0500 Systolic blood pressure 150 mm[Hg] ORION VELARDE MD [facility] Encounters Encounter Date Encounter Type Care Provider Facility Start: 02-28-2025 End: 02-28-[address] Dedrick Loza MD -[facility] Start: 02-28-2025 End: 02-28-2025 ambulatory Ana Shaikh Facility:[facility] Start: 01-09-2025 End: 01-09-[address] Tashi Beasley MD -[facility] Work Phone: Start: 01-09-2025 End: 01-09-[address] Ana Shaikh DO Work Phone: -[facility] Start: 11-07-2024 End: 11-07-[address] Tashi Beasley MD -[facility] Work Phone: Start: 11-07-2024 End: 11-07-[address] Ana Shaikh DO Work Phone: [facility] Work Phone: Start: 10-09-2024 End: 10-09-2024 ambulatory ANA SHAIKH DO [facility] Start: 10-09-2024 End: 10-09-2024 Patient encounter procedure ANA SHAIKH DO [facility] Start: 10-06-2024 End: 10-06-2024 ambulatory ANA SHAIKH DO [facility] Start: 10-06-2024 End: 10-06-[address] VERONICA BACA [facility] Start: 09-05-2024 End: 09-05-[address] Dedrick Loza MD -[facility] Start: 09-05-2024 End: 09-05-2024 ambulatory Dedrick Loza Facility:[facility] Start: 09-05-2024 End: 09-05-[address] Tashi Beasley MD -[facility] Work Phone: Start: 09-05-2024 End: 09-05-2024 ambulatory Ana Shaikh Facility:[facility] Start: 09-01-2024 End: 09-01-2024 Patient encounter procedure Delia Mendez NP-C -[facility] Work Phone: Start: 09-01-2024 End: 09-01-2024 ambulatory Ana Shaikh Facility:[facility] Start: 08-04-2024 End: 08-04-2024 ambulatory RADHA SUAREZ Facility:[facility] Start: 08-04-2024 End: 08-04-2024 Patient encounter procedure Radha Suarez DO Work Phone: Orthopaedics Comment on above: [facility] arthritis (Prima ry Dx) Start: 07-06-2024 End: 07-06-2024 ambulatory ANA SHAIKH DO Facility:[facility] [place] Start: 07-06-2024 End: 07-06-2024 Patient encounter procedure ANA NEEL DO [facility] Start: 06-22-2024 End: 06-22-2024 ambulatory Mary Rothman Facility:[facility] Start: 06-22-2024 End: 06-22-2024 ambulatory Mary Rothman Facility:[facility] Start: 06-19-2024 End: 06-19-2024 Emergency department patient visit Ana Baraktorsten Facility:[facility] Start: 06-02-2024 End: 06-02-2024 ambulatory Jas GONSALEZ Facility:[facility] Start: 05-07-2024 End: 05-07-2024 ambulatory Steve Power NP Facility:[facility] Start: 04-14-2024 End: 04-14-2024 Patient encounter procedure Radha Suarez DO Work Phone: Orthopaedics Comment on above: [facility] arthritis (Prima ry Dx) Start: 04-14-2024 End: 04-14-2024 ambulatory ANA Mccoy BARAKTORSTEN IV Facility:[facility] Start: 04-14-2024 End: 04-14-2024 Subsequent hospital visit by physician [facility] Work Phone: Radiology Comment on above: [facility] arthritis [M19.0 49] Start: 03-27-2024 End: 03-27-2024 Orders Only Radha Sunshine Daniela DO Work Phone: Orthopaedics Comment on above: [facility] arthritis (Prima ry Dx) Start: 02-15-2024 End: 02-15-2024 ambulatory ANA NEEL Facility:[facility] Start: 02-15-2024 End: 02-15-2024 Patient encounter procedure ANA SHAIKH DO [facility] Start: 11-01-2023 End: 11-26-2023 ambulatory JULIUS MOM Facility:[facility] Start: 11-01-2023 End: 11-26-2023 Physical therapy management JULIUS CH DPM [facility] Start: 09-14-2023 End: 09-14-2023 ambulatory WALLACE GONSALEZ Work Phone: [facility] Work Phone: Start: 09-14-2023 End: 09-14-2023 Patient encounter procedure WALLACE GONSALEZ Work Phone: [facility] Work Phone: Start: 09-14-2023 End: 09-14-2023 Patient encounter procedure WALLACE GONSALEZ Work Phone: [facility] Work Phone: Start: 09-10-2023 ambulatory YAIR GAMEZ DO Fa cility:[facility] Start: 09-10-2023 End: 03-16-2024 Physical therapy management YAIR GAMEZ DO [facility] Start: 05-28-2023 End: 05-28-2023 ambulatory ANA SHAIKH DO Facility:[facility] Start: 05-28-2023 End: 05-28-2023 Patient encounter procedure ANA PRUETTKO DO [facility] Start: 05-21-2023 End: 05-25-2023 ambulatory ANA SHAIKH DO Facility:[facility] Start: 05-21-2023 End: 05-25-2023 Outreach Lab ANA PRUETTKO DO [facility] Start: 05-21-2023 End: 05-21-2023 ambulatory ANA SHAIKH DO Facility:[facility] Start: 05-21-2023 End: 05-21-2023 Patient encounter procedure ANA SHAIKH DO [facility] Start: 03-10-2023 ambulatory ANA SHAIKH DO Facili ty:[facility] Start: 12-16-2022 End: 12-16-2022 Patient encounter procedure Radha Suarez DO Work Phone: Orthopaedics Comment on above: [facility] arthritis (Prima ry Dx) Start: 06-18-2022 End: 06-18-2022 Patient encounter procedure ANA SHAIKH DO [facility] Start: 01-29-2022 End: 01-29-2022 Subsequent hospital visit by physician Justo [facility] Betty Lala Work Phone: Radiology Comment on above: Bilateral thumb pain [M79.644, M79.645] Start: 01-21-2022 Orders Only Radha eduardo DO Work Phone: Orthopaedics Comment on above: Bilateral thumb pain (Primary Dx) Start: 07-30-2021 End: 07-30-2021 Patient encounter procedure MONALISA FRAGA DPM [facility] Start: 05-04-2021 End: 05-05-2021 Emergency department patient visit ORION VELARDE MD [facility] Start: 03-31-2021 End: 03-31-2021 Patient encounter procedure ANA SHAIKH DO [facility] Procedures Date Procedure Procedure Detail Performing Clinician Start: 09-05-2024 End: 09-05-2024 Plain x-ray of hand Dr. Ana Shaikh DO Work Phone: Start: 08-04-2024 Arthrocentesis aspir &/inj small jt/bursa w/o us Radha Suarez DO Work Phone: Start: 04-14-2024 Arthrocentesis aspir &/inj small jt/bursa w/o us Radha Suarez DO Work Phone: Start: 09-14-2023 Urine culture WALLACE GONSALEZ Work Phone: Start: 12-16-2022 Arthrocentesis aspir &/inj small jt/bursa w/o us Radha Suarez DO Work Phone: Start: 05-24-2019 Cardiac catheterization ANA SHAIKH DO Start: 12-23-2018 Adult depression scr eening assessment Radha Suarez DO Work Phone: Start: 09-07-2017 Echocardiography MICHAE Hao SHAIKH DO Comment on above: EF 50-55% Start: 06-03-2016 Arthroplasty of knee WI ZEEJEANNETTE NEEL DO Comment on above: left Start: 05-24-2016 Lumbar approach (john lifier value) ANA SHAIKH DO Comment on above: unsuccessful Start: 05-24-2014 Extraction of cataract ANA SHAIKH DO Comment on above: bilat Start: 09-15-2011 Cardiovascular stres s testing ANA SHAIKH DO Comment on above: Small inferior scar with no reversible ischemia note. Normal wall motion with claculated EF of 61% Start: 05-24-2010 Total knee replacement ANA SHAIKH DO Comment on above: left Start: 05-24-2004 Cholecystectomy ANA SHAIKH DO Start: 05-24-2001 Laminectomy ANA RAGSDALE DO Start: 09-25-1969 Bladder excision MICHAE Hao SHAIKH DO Start: 05-24-1967 Cyst - pilonidal (disorder) ANA SHAIKH DO Start: 05-24-1950 Appendectomy ANA RAGSDALE DO Start: 05-24-1947 Tonsillectomy and adenoidectomy ANA SHAIKH DO Colonoscopy ANA SHAIKH Keesha Dawkins Comment on above: multiple Endoscope, device (p hysical object) ANA SHAIKH DO Comment on above: multiple Radiation (physical force) Davin SHAIKH DO Comment on above: prostate- 44 treatme nt for cancer Plan of Treatment Date Care Activity Detail Author Start: 05-21-2033 Urine microalbumin profile DTaP,Tdap,Td Vaccine (4 - Td or Tdap) [facility] Start: 02-28-2025 Plain X-ray of shoulder Shoulder min 2 Views [facility] Start: 02-28-2025 XR Shoulder GE 2 Views [facility] Start: 11-08-2024 End: 11-08-2024 Patient encounter procedure 11/08/2024 1:15 PM EDT Office Visit Orthopaedics [address] [address] Radha Suarez DO [address] [place] [address] B/L thmb cortisone injection Orthopaedics Comment on above: B/L thmb cortisone i njection Start: 08-03-2024 End: 08-03-2024 Patient encounter procedure 08/03/2024 9:00 AM EDT Office Visit Orthopaedics [address] [place] [address] Radha Suarez, DO [address] [place] [address] Bilateral Thumb cortisone inj Orthopaedics Comment on above: Bilateral Thumb elias isone inj Start: 05-24-2024 Advance Directive Discussion Advance Directive Discussion [facility] Start: 04-14-2024 End: 04-14-2024 Patient encounter procedure Radiology Comment on above: bilateral hand Bilateral Thumb (Cor tizone Injection) Start: 01-23-2024 Covid-19 Vaccine () Covid-19 Vaccine () [facility] Start: 01-23-2024 Influenza vaccination Influenza Vacc ine (#1) [facility] Start: 05-24-2023 Advance Directive Discussion Advance Directive Discussion [facility] Start: 02-02-2023 Urine microalbumin profile DTaP,Tdap,Td Vaccine (3 - Td or Tdap) [facility] Start: 01-22-2023 Influenza vaccination INFLUENZA (#1) [facility] Start: 05-24-2022 ADVANCE DIRECTIVE DISCUSSION ADVANCE DIRECTIVE DISCUSSION [facility] Start: 05-24-2022 DEPRESSION ASSESSMENT DEPRESSION ASS ESSMENT [facility] Start: 01-22-2022 Influenza vaccination INFLUENZA (#1) [facility] Start: 05-24-2021 ADVANCE DIRECTIVE DISCUSSION ADVANCE DIRECTIVE DISCUSSION [facility] Start: 12-10-2020 COVID-19 VACCINE (3 - Booster for Pfizer series) COVID-19 VACCINE (3 - Booster for Pfizer series) [facility] Start: 09-07-2020 COVID-19 VACCINE (3 - Pfizer series) COVID-19 VACCINE (3 - Pfizer series) [facility] Start: 12-24-2019 Adult depression screening assessment DEPRESSION SCREENING [facility] Start: 2017 RSV Vaccine (1 - 1-d ose 75+ series) RSV Vaccine (1 - 1-dose 75+ series) [facility] Start: 2007 PNEUMOCOCCAL: 65+ (1 - PCV) PNEUMOCOCCAL: 65+ (1 - PCV) [facility] Start: 1992 SHINGRIX VACCINE (1 of 2) SHINGRIX VACCINE (1 of 2) [facility] Start: 1987 DIABETES SCREEN DIABETES SCREEN [facility] Start: 1987 Diabetes Screening Diabetes Screenin g [facility] Start: 1961 Urine microalbumin profile DTAP,TDAP,TD (1 - Tdap) [facility] Start: 1960 Anxiety Screening Anxiety Screening [facility] Start: 1960 Depression Screening Depression Scre ening [facility] End: 04-26-2025 XR Hand - bilateral PA and Lateral and Oblique XR HAND GENERAL 3V PA/LAT/OBL BILATERAL Radiology Routine [facility] arthritis 1 Occurrences starting 03/27/2024 until 04/26/2025 [facility] Work Phone: Comment on above: 1 Occurrences starti ng 03/27/2024 until 04/26/2025 XR Hand - bilateral PA and Lateral and Oblique XR HAND GENERAL 3V PA/LAT/OBL BILATERAL Radiology Routine [facility] arthritis 04/14/2024 12:35 PM EST [facility] Work Phone: End: 02-20-2023 XR HAND GENERAL 3V PA/LAT/OBL BILATERAL XR HAND GENERAL 3V PA/LAT/OBL BILATERAL Radiology Routine Bilateral thumb pain 1 Occurrences starting 01/21/2022 until 02/20/2023 [facility] Work Phone: Comment on above: 1 Occurrences starti ng 01/21/2022 until 02/20/2023 End: 01-29-2022 XR HAND GENERAL 3V PA/LAT/OBL BILATERAL [facility] Work Phone: Comment on above: 1 Occurrences starti ng 01/29/2022 until 01/29/2022 [facility] Immunizations Immunization Date Immunization Notes Care Provider [place] 02-23-2024 influenza virus vaccine, unspecified formulation ANA SHAIKH DO [facility] [place] 05-24-2023 pneumococcal conjuga te vaccine, 7 valent ANA BARAKTORSTEN DO [facility] Comment on above: Result Comment: at V A 05-21-2023 tetanus toxoid, redu roslyn diphtheria toxoid, and acellular pertussis vaccine, adsorbed; Translations: [Boostrix (Tdap)] ANA NEEL DO [facility] 03-02-2023 influenza, high dose seasonal, preservative-free; Translations: [Fluad Quadrivalent PF ] ANA NEEL DO [facility] 06-24-2020 SARS-CoV-2 mRNA (tozinameran) vaccine MONALISA FRAGA DPM [facility] 03-29-2017 influenza virus vaccine, unspecified formulation ANA BARAKTORSTEN DO [facility] 02-18-2016 influenza virus vaccine, unspecified formulation ANA NEEL DO [facility] 05-24-2013 influenza virus vaccine, unspecified formulation ANA SHAIKH DO [facility] 05-24-2013 zoster vaccine recombinant ANA SHAIKH DO [facility] 05-24-2013 zoster vaccine, live ANA SHAIKH DO [facility] 04-22-2013 zoster vaccine recombinant ANA SHAIKH DO [facility] 05-24-2009 pneumococcal polysaccharide vaccine, 23 valent ANA SHAIKH DO [facility] 05-24-2009 tetanus and diphther ia toxoids, adsorbed, preservative free, for adult use (5 Lf of tetanus toxoid and 2 Lf of diphtheria toxoid) ANA SHAIKH DO [facility] 05-24-2009 tetanus toxoid, redu roslyn diphtheria toxoid, and acellular pertussis vaccine, adsorbed ANA SHAIKH DO [facility] 04-22-2009 pneumococcal polysaccharide vaccine, 23 valent ANA SHAIKH DO [facility] 04-22-2009 tetanus and diphther ia toxoids, adsorbed, preservative free, for adult use (5 Lf of tetanus toxoid and 2 Lf of diphtheria toxoid) ANA SHAIKH DO [facility] 03-22-1970 influenza virus vaccine, whole virus Radha Suarez DO Work Phone: [facility] Payers Date Payer Category Payer Unknown 2024 Private Health Insurance [id number] 2024 Medicare [id number] 2024 Self-pay [id number] 2023 Private Health Insurance [id number] 2023 Unknown [id number] 2020 Private Health Insurance [id number] 2007 Medicare [id number] 2007 Medicare [id number] 1942 Unknown [id number] 2.16.8 [id number] 1942 Unknown [id number] 2.16.8 40.1.471249.3.579.2.627 1942 Unknown [id number] 2.16.8 40.1.001865.3.579.2.627 1942 Unknown [id number] 2.16.8 40.1.671385.3.579.2.627 1942 Unknown [id number] 2.16.8 40.1.373164.3.579.2.627 1942 Unknown [id number] 2.16.8 40.1.832104.3.579.2.627 1942 Unknown [id number] 2.16.8 40.1.254038.3.579.2.627 1942 Unknown [id number] 2.16.8 40.1.106270.3.579.2.627 1942 Unknown [id number] 2.16.8 40.1.909835.3.579.2.627 1942 Unknown [id number] 2.16.8 40.1.384891.3.579.2.627 Unknown [id number] 2.16.8 40.1.503579.3.579.2.462 Unknown [id number] 2.16.8 40.1.366981.3.579.2.462 Unknown [id number] 2.16.8 40.1.257205.3.579.2.462 Unknown [id number] 2.16.8 40.1.017330.3.579.2.462 Unknown [id number] 2.16.8 40.1.129269.3.579.2.462 Unknown [id number] 2.16.8 40.1.958481.3.579.2.462 Unknown [id number] 2.16.8 40.1.227832.3.579.2.462 Unknown [id number] 2.16.8 40.1.035037.3.579.2.462 Unknown [id number] 2.16.8 40.1.917843.3.579.2.462 Unknown [id number] 2.16.8 40.1.672025.3.579.2.462 Unknown [id number] 2.16.8 40.1.859744.3.579.2.462 Unknown [id number] 2.16.8 40.1.562594.3.579.2.462 Unknown [id number] 2.16.8 40.1.951437.3.579.2.462 Social History Date Type Detail Facility Start: 01-17-2019 End: 06-22-2024 Ex-smoker (finding) [facility] Start: 1940 Sex Assigned At Male A [facility] Start: 05-24-1956 End: 05-24-1967 History of tobacco use Current smoker [facility] Start: 05-24-1956 End: 05-24-1967 History of tobacco use Cigarette Smoker [facility] Start: 12-19-2014 End: 10-28-2022 Cigarettes smoked current (pack per day) - Reported 2 [facility] Start: 12-19-2014 End: 04-14-2024 Tobacco use and exposure Smokeless tobacco non-user [facility] Start: 02-07-2021 End: 08-04-2024 Alcohol intake Current drinker of alcohol (finding) [facility] Start: 09-15-2013 History SDOH Alcohol Comment beer on occasion [facility] Start: 1940 Sex Assigned At Not on file C [facility] Start: 01-19-2022 End: 01-29-2022 Exposure to SARS-CoV-2 (event) Not sure [facility] Start: 10-28-2022 End: 12-16-2022 Tobacco use panel [facility] Adult Depression Screening Assessment 0 [facility] Start: 02-12-2022 Tobacco smoking stat us NHIS Unknown if ever smoked [facility] Sexual Orientation [place] [facility] Start: 01-16-2020 Sex Male (finding) [facility] Medical Equipment Procedure Code Equipment Code Equipment Origin al Text Equipment Identifier Dates FDA Start: 01-10-2018 FDA Start: 01-10-2018 FDA Start: 01-10-2018 FDA Start: 01-10-2018 FDA Start: 01-10-2018 FDA Start: 01-10-2018 FDA Start: 01-10-2018 FDA Start: 01-10-2018 FDA Start: 01-10-2018 FDA Start: 01-10-2018 FDA Start: 01-10-2018 FDA Start: 01-10-2018 FDA Start: 01-10-2018 FDA Start: 01-10-2018 FDA Start: 01-10-2018 FDA Start: 01-10-2018 FDA Start: 01-10-2018 FDA Start: 01-10-2018 FDA Start: 01-10-2018 FDA Start: 01-10-2018 Unknown Unknown 8/20/18 Unknown Unknown FDA Start: 01-10-2018 FDA Start: 01-10-2018 FDA Start: 01-10-2018 FDA Start: 01-10-2018 FDA Start: 01-10-2018 Unknown Unknown 8/20/18 Unknown Unknown FDA Start: 01-10-2018 FDA Start: 01-10-2018 FDA Start: 01-10-2018 FDA Start: 01-10-2018 FDA Start: 01-10-2018 Unknown Unknown 8/20/18 Unknown Unknown FDA Start: 01-10-2018 FDA Start: 01-10-2018 FDA Start: 01-10-2018 FDA Start: 01-10-2018 FDA Start: 01-10-2018 Unknown Unknown 8/20/18 Unknown Unknown FDA Start: 01-10-2018 FDA Start: 01-10-2018 FDA Start: 01-10-2018 FDA Start: 01-10-2018 FDA Start: 01-10-2018 Unknown Unknown 8/20/18 Unknown Unknown FDA Start: 01-10-2018 FDA Start: 01-10-2018 FDA Start: 01-10-2018 FDA Start: 01-10-2018 FDA Start: 01-10-2018 Unknown Unknown 01/10/18 Unknown Unknown FDA Start: 01-10-2018 FDA Start: 01-10-2018 FDA Start: 01-10-2018 FDA Start: 01-10-2018 FDA Start: 01-10-2018 Unknown Unknown 8/20/18 Unknown Unknown FDA Start: 01-10-2018 FDA Start: 01-10-2018 FDA Start: 01-10-2018 FDA Start: 01-10-2018 FDA Start: 01-10-2018 Unknown Unknown 8/ Unknown Unknown FDA Start: 01-10-2018 FDA Start: 01-10-2018 FDA Start: 01-10-2018 FDA Start: 01-10-2018 FDA Start: 01-10-2018 Unknown Unknown 8 Unknown Unknown FDA Start: 01-10-2018 FDA Start: 01-10-2018 FDA Start: 01-10-2018 FDA Start: 01-10-2018 FDA Start: 01-10-2018 Unknown Unknown 01/10/18 Unknown Unknown FDA Start: 01-10-2018 FDA Start: 01-10-2018 FDA Start: 01-10-2018 FDA Start: 01-10-2018 FDA Start: 01-10-2018 Functional Status Date Assessment Result Facility 11-01-2023 Functional Status Objective: Observation: no oversved muscle or joint deformities, no bruising int the posterior thigh and hamstring area and no palpable muscle gap in the hamstring region. Cardiovascular screen: BP:122/78, O2 sat: 97% HR: 72 bpm Sensation: Grossly intact to light touch but R leg grossly decreased as compared to L. Balance: Step tap: mild decrease in balance needs some external support able to perform 8 taps but some decreased toe clearance on the R, Tandem balance: WFL 30 seconds, feet together EC WFL; 30 sec Reflexes: Quads R: 1+ L: 1+ Achilles R: 1+ L: 1+ Gait: flexed posture with decreased stride length on the R, mild antalgic gait. Palpation: mild tenderness to palpation R proximal hamstring and medial hamstring. Special Tests: Slump: + bilat more tightness on the R. Did not flex trunk for testing today [facility] 09-10-2023 Functional Status Objective: Observation: Tends to cross legs and sit off center. Cardiovascular screen: BP:118/74 , O2 sat: 97% HR: 81 bpm Sensation: Grossly intact and symmetrical light touch bilat LE's Reflexes: Quads R: 1+ L: NT Achilles R: 1+ L: 1+ Gait: no apparent deficits [facility] 12-19-2014 Are you deaf, or do you have serious difficulty hearing No 12/19/2014 9:13 AM EDT Flora Whitehead [place], [place] No [facility] 12-19-2014 Are you blind, or do you have serious difficulty seeing, even when wearing glasses No 12/19/2014 9:13 AM EDT Flora Whitehead [place], [place] No [facility] 12-19-2014 Do you have serious difficulty walking or climbing stairs No 12/19/2014 9:13 AM EDT Flora Whitehead [place], [place] [facility] 12-19-2014 Do you have difficul ty dressing or bathing No 12/19/2014 9:13 AM EDT Flora Whitehead [place], [place] [facility] 12-19-2014 Because of a physica l, mental, or emotional condition, do you have difficulty doing errands alone such as visiting a physician's office or shopping No 12/19/2014 9:13 AM EDT Flora Whitehead [place], [place] [facility] Mental Status Date Assessment Result Facility 12-19-2014 Because of a physica l, mental, or emotional condition, do you have serious difficulty concentrating, remembering, or making decisions No 12/19/2014 9:13 AM EDT Flora Whitehead [place], [place] No [facility] Clinical Notes 06-10-2009 to 11-07-2024 Note Date & Type Note Facility 11-07-2024 Evaluation note Diagnosis Onset Date Resolution [facility] arthritis, thumb, degenerative acute November 07, 2024 2:37pm [facility] Work Phone: 1(180) 428-272206-17-2025 Evaluation note* Diagnosis Onset Date Resolution Status Admit Date CMC arthritis, thumb, degenerative acute November 07, 2024 2:37pm [facility] arthritis, thumb, degenerative acute January 09 2:21pm [place] [facility] Work Phone: 1(240) 200-847804-11-2025 Evaluation note* Diagnosis Onset Date Resolution Status Admit Date Impingement of right shoulder acute September 01, 2024 8:14am [facility] arthritis, thumb, degenerative acute September 05, 2024 1:44pm [place] [facility] Work Phone: [phone] 158-489803-14-2025 NoteHNO ID: [id number] Author: RADHA SUAREZ, DO Service: ? Author Type: Physician Type: Progress Notes Filed: 08/04/2024 14:08 Note Text: Follow Up Visit Small Joint Arthro/Inj: bilateral thumb [facility] 08/04/2024 2:07 PM The procedure site was prepped in the usual sterile fashion. Medications (Right): 10 mg triamcinolone acetonide 10 mg/mL Medications (Left): 10 mg triamcinolone acetonide 10 mg/mL Anesthetics (Right): 1 mL BUPivacaine (PF) 0.5 % (5 mg/mL) Anesthetics (Left): 1 mL BUPivacaine (PF) 0.5 % (5 mg/mL) Outcome: tolerated well, no immediate complications Post-injection instructions were reviewed with the patient and the patient voiced understanding of these instructions. Informed Consent Consent Obtained: Verbal [place] Protocol A moment to CARE was completed. SIGN IN Sign in communication not applicable due to emergent procedure. Personnel directly involved with the procedure wore the appropriate PPE. Special Equipment: N/A Patient/Surrogate Stated/Verified: Patient name, Date of , Relevant allergies and Intended procedure TIME OUT Relevant labs, photos, and/or imaging studies have been reviewed. Intended patient and procedure match source documents. Consent obtained and matches the intended procedure. Correct side/site marked and visible. Medications required for procedure verified. Fire risk assessed and interventions discussed. No implant(s) inserted. SIGN OUT All specimens correctly labeled and sent. All instruments, equipment, possible retained foreign bodies accounted for. The post-procedure POC has been communicated to the patient or surrogate. Chief Complaint Lee Tadeo is a 84 year old male who presents today for follow up office visit. Patient presents with: Right Wrist - Follow Up, Pain Left Wrist - Follow Up, Pain History of Present Illness PAIN EVALUATION 08/04/2024 1216 Pain Level: 1 increases with use Pain Location: -- bilateral thumbs Duration Amount of Time: -- ongoing Frequency: Intermittent Intervention/Comfort measure: -- cortisone injection HPI: Lee Tadeo is a 84 year old male for a follow up visit bilateral thumb pain. Patient is here for cmc injection, last injection was 4 months ago and that gave moderate relief. Patient states as long as he does not use hands often he does well. Pain history is noted as above. Is there any overall improvement in your condition? Yes, with injections Any new injury, since being seen last: No REVIEW OF SYMPTOMS: Patient did not have, and does not currently have, any weight loss, malaise, fever, chills, headache, chest pain, chest pressure, palpitations, cough, shortness of breath, orthopnea, paroxsymal nocturnal dyspnea, nausea, vomiting, diarrhea, constipation, melena, hematochezia, urinary difficulties, prolonged bleeding, easily bruising, heat or cold intolerance, new onset joint pain or swelling, new onset extremity weakness or numbness, new onset auditory or visual disturbances, lightheadedness, dizziness, partial loss of consciousness or full loss of consciousness. Current Outpatient Medications Medication Sig NIFEdipine XL (ADALAT CC) 30 mg 24 hr tablet Take 1 tablet by mouth every afternoon. citalopram (CELEXA) 20 mg tablet Take 20 mg by mouth once daily. (Patient taking differently: Take 30 mg by mouth once daily.) apixaban (ELIQUIS) 5 mg tab(s) Take by mouth twice daily. polyethylene glycol 3350 (CLEARLAX ORAL) Take by mouth. omega-3 fatty acids (FISH OIL CONCENTRATE) 1,000 mg cap Take by mouth twice daily. multivit with minerals/lutein (MULTIVITAMIN 50 PLUS ORAL) Take 1 tablet by mouth once daily. pravastatin (PRAVACHOL) 80 mg tablet Take 80 mg by mouth once daily. CPAP acetaminophen (TYLENOL) 500 mg tablet Take 1,000 mg by mouth as needed. DOCOSAHEXANOIC ACID/EPA (FISH OIL ORAL) Take 1,200 mg by mouth once daily. PANTOPRAZOLE 40 MG TAB, DELAYED RELEASE Take by mouth twice daily. Swallow whole. DO NOT crush or break. esomeprazole (NEXIUM) 40 mg capsule Take 1 capsule by mouth once daily. keTORolac (TORADOL) 10 mg tablet Take 1 tablet by mouth every 8 hours as needed. (Patient not taking: Reported on 01/29/2022) SUCRALFATE ORAL Take by mouth. (Patient not taking: Reported on 01/29/2022) CLENPIQ 10 mg-3.5 gram -12 gram/160 mL soln Use as instructed. citalopram (CELEXA) 40 mg tablet Take 40 mg by mouth once daily. (Patient not taking: Reported on 01/29/2022) lisinopril (ZESTRIL, PRINIVIL) 5 mg tablet Take 5 mg by mouth once daily. (Patient not taking: Reported on 08/04/2024) rivaroxaban (XARELTO) 15 mg tablet Take 20 mg by mouth once daily. (Patient not taking: Reported on 01/29/2022) suvorexant (BELSOMRA) 20 mg tab Take 1/2 tablet by mouth at bedtime as needed. celecoxib(CELEBREX 200 MG CAP) Take 200 mg by mouth once daily. (Patient not taking: Reported on 08/04/2024) No current facility-administered medications for this (more content not included)...[facility]03-14-2025 History of Present illness Narrative* Radha Suarez DO - 08/04/2024 12:13 PM EDTAssociated Order(s): Small Joint Arthro/Inj: bilateral thumb [facility] Post-Procedure Diagnose(s): CMC arthritis Images from the original note were not included. Follow Up Visit Small Joint Arthro/Inj: bilateral thumb [facility] 08/04/2024 2:07 PM The procedure site was prepped in the usual sterile fashion. Medications (Right): 10 mg triamcinolone acetonide 10 mg/mL Medications (Left): 10 mg triamcinolone acetonide 10 mg/mL Anesthetics (Right): 1 mL BUPivacaine (PF) 0.5 % (5 mg/mL) Anesthetics (Left): 1 mL BUPivacaine (PF) 0.5 % (5 mg/mL) Outcome: tolerated well, no immediate complications Post-injection instructions were reviewed with the patient and the patient voiced understanding of these instructions. Informed Consent Consent Obtained: Verbal [place] Protocol A moment to CARE was completed. SIGN IN Sign in communication not applicable due to emergent procedure. Personnel directly involved with the procedure wore the appropriate PPE. Special Equipment: N/A Patient/Surrogate Stated/Verified: Patient name, Date of , Relevant allergies and Intended procedure TIME OUT Relevant labs, photos, and/or imaging studies have been reviewed. Intended patient and procedure match source documents. Consent obtained and matches the intended procedure. Correct side/site marked and visible. Medications required for procedure verified. Fire risk assessed and interventions discussed. No implant(s) inserted. SIGN OUT All specimens correctly labeled and sent. All instruments, equipment, possible retained foreign bodies accounted for. The post-procedure POC has been communicated to the patient or surrogate. Chief Complaint Lee Tadeo is a 84 year old male who presents today for follow up office visit. Patient presents with: Right Wrist - Follow Up, Pain Left Wrist - Follow Up, Pain History of Present Illness PAIN EVALUATION 08/04/2024 1216 Pain Level: 1 increases with use Pain Location: -- bilateral thumbs Duration Amount of Time: -- ongoing Frequency: Intermittent Intervention/Comfort measure: -- cortisone injection HPI: Lee Tadeo is a 84 year old male for a follow up visit bilateral thumb pain. Patient is here for cmc injection, last injection was 4 months ago and that gave moderate relief. Patient states as long as he does not use hands often he does well. Pain history is noted as above. Is there any overall improvement in your condition? Yes, with injections Any new injury, since being seen last: No REVIEW OF SYMPTOMS: Patient did not have, and does not currently have, any weight loss, malaise, fever, chills, headache, chest pain, chest pressure, palpitations, cough, shortness of breath, orthopnea, paroxsymal nocturnal dyspnea, nausea, vomiting, diarrhea, constipation, melena, hematochezia, urinary difficulties, prolonged bleeding, easily bruising, heat or cold intolerance, new onset joint pain or swelling, newonset extremity weakness or numbness, new onset auditory or visual disturbances, lightheadedness, dizziness, partial loss of consciousness or full loss of consciousness. Current Outpatient Medications Medication Sig NIFEdipine XL (ADALAT CC) 30 mg 24 hr tablet Take 1 tablet by mouth every afternoon. citalopram (CELEXA) 20 mg tablet Take 20 mg by mouth once daily. (Patient taking differently: Take 30 mg by mouth once daily.) apixaban (ELIQUIS) 5 mg tab(s) Take by mouth twice daily. polyethylene glycol 3350 (CLEARLAX ORAL) Take by mouth. omega-3 fatty acids (FISH OIL CONCENTRATE) 1,000 mg cap Take by mouth twice daily. multivit with minerals/lutein (MULTIVITAMIN 50 PLUS ORAL) Take 1 tablet by mouth once daily. pravastatin (PRAVACHOL) 80 mg tablet Take 80 mg by mouth once daily. CPAP acetaminophen (TYLENOL) 500 mg tablet Take 1,000 mg by mouth as needed. DOCOSAHEXANOIC ACID/EPA (FISH OIL ORAL) Take 1,200 mg by mouth once daily. PANTOPRAZOLE 40 MG TAB, DELAYED RELEASE Take by mouth twice daily. Swallow whole. DO NOT crush or break. esomeprazole (NEXIUM) 40 mg capsule Take 1 capsule by mouth once daily. keTORolac (TORADOL) 10 mg tablet Take 1 tablet by mouth every 8 hours as needed. (Patient not taking: Reported on 01/29/2022) SUCRALFATE ORAL Take by mouth. (Patient not taking: Reported on 01/29/2022) CLENPIQ 10 mg-3.5 gram -12 gram/160 mL soln Use as instructed. citalopram (CELEXA) 40 mg tablet Take 40 mg by mouth once daily. (Patient not taking: Reported on 01/29/2022) lisinopril (ZESTRIL, PRINIVIL) 5 mg tablet Take 5 mg by mouth once daily. (Patient not taking: Reported on 08/04/2024) rivaroxaban (XARELTO) 15 mg tablet Take 20 mg by mouth once daily. (Patient not taking: Reported on 01/29/2022) suvorexant (BELSOMRA) 20 mg tab Take 1/2 tablet by mouth at bedtime as needed. celecoxib(CELEBREX 200 MG CAP) Take 200 mg by mouth once daily. (Patient not taking: Reported on 08/04/2024) No current facility-administered medications for this visit. Physical Exam Vitals: There were no vitals taken for this visit. Psych: Pleasant, good affect and mood General Appearance: Well appearing, alert, in no acute distress, well-hydrated, well nourished.. Skin: Skin color, texture, turgor normal, no suspicious rashes or lesions. Peripheral Pulses: Normal. Neurologic: Gait normal. Reflexes normal and symmetric. Sensation grossly intact.. Lymph Nodes: No cervical lymphadenopathy, No supraclavicular lymphadenopathy, No axillary lymphadenopathy., and No inguinal lymphadenopathy.. Respiratory: No recent pulmonary infection, hemoptysis, chronic cough, or shortness of breath at rest Rheumatologic: Joint deformities: bilateral thumb pain Ortho Exam Assessment and Plan Radiographs: No imaging to review. Impression: No diagnosis found. Today, in detail, through a thorough evaluation, we discussed possible etiologies of pain and our plans for further diagnostic and therapeutic interventions. We discussed strategies for decreasing pain and improving strength, stability and motion. Patient's questions were answered in detailed. Patient verbalizes understanding and agrees with the treatment plan as discussed. Radha Suarez D.O. M.P.H. documented [facility] NoteHNO ID: [id number] Author: RADHA SUAREZ DO Service: ? Author Type: Physician Type: Progress Notes Filed: 04/15/2024 11:05 Note Text: Follow Up Visit Chief Complaint Lee Tadeo is a 83 year old male who presents today for follow up office visit. Patient presents with: Right Thumb - Follow Up, Established Patient, Pain Left Thumb - Established Patient, Follow Up, Pain History of Present Illness PAIN EVALUATION 04/14/2024 1228 Pain Level: 2 Pain Location: -- bilateral hands Description: Sore;Aching Duration Amount of Time: -- ongoing Frequency: Intermittent HPI: Lee Tadeo is a 83 year old male for a follow up visit . Here for cmc injections, states previous injections have worked, now would like repeat injection. Pain history is noted as above. Discussed with patient possible options for treatment. Patient elected proceed with injection. Patient told not to submerge the injected area for 24 hours in a hot tub, or bath, injection may take 2 weeks for improvement to be noticed, follow-up in 2 -6 weeks if symptoms do not resolve. All questions answered patient agreement of plan. Apply ice Limit activities as discussed Rest Do not submerge limb in water for 24 hours Cont current meds Watch sugars/decrease carbs Call if warm/hot/red Discussed with patient that if the injection does not work after 2 to 4 weeks to come back for reevaluation. Discussed the next 3 days may feel worse before it feels better. Discussed if having continued pain to return. May get injection every 3 months Is there any overall improvement in your condition? No Any new injury, since being seen last: No REVIEW OF SYMPTOMS: Patient did not have, and does not currently have, any weight loss, malaise, fever, chills, headache, chest pain, chest pressure, palpitations, cough, shortness of breath, orthopnea, paroxsymal nocturnal dyspnea, nausea, vomiting, diarrhea, constipation, melena, hematochezia, urinary difficulties, prolonged bleeding, easily bruising, heat or cold intolerance, new onset joint pain or swelling, new onset extremity weakness or numbness, new onset auditory or visual disturbances, lightheadedness, dizziness, partial loss of consciousness or full loss of consciousness. Current Outpatient Medications Medication Sig NIFEdipine XL (ADALAT CC) 30 mg 24 hr tablet Take 1 tablet by mouth every afternoon. citalopram (CELEXA) 20 mg tablet Take 20 mg by mouth once daily. apixaban (ELIQUIS) 5 mg tab(s) Take by mouth twice daily. polyethylene glycol 3350 (CLEARLAX ORAL) Take by mouth. omega-3 fatty acids (FISH OIL CONCENTRATE) 1,000 mg cap Take by mouth twice daily. multivit with minerals/lutein (MULTIVITAMIN 50 PLUS ORAL) Take 1 tablet by mouth once daily. CLENPIQ 10 mg-3.5 gram -12 gram/160 mL soln Use as instructed. lisinopril (ZESTRIL, PRINIVIL) 5 mg tablet Take 5 mg by mouth once daily. CPAP acetaminophen (TYLENOL) 500 mg tablet Take 1,000 mg by mouth as needed. DOCOSAHEXANOIC ACID/EPA (FISH OIL ORAL) Take 1,200 mg by mouth once daily. celecoxib(CELEBREX 200 MG CAP) Take 200 mg by mouth once daily. PANTOPRAZOLE 40 MG TAB, DELAYED RELEASE Take by mouth twice daily. Swallow whole. DO NOT crush or break. esomeprazole (NEXIUM) 40 mg capsule Take 1 capsule by mouth once daily. keTORolac (TORADOL) 10 mg tablet Take 1 tablet by mouth every 8 hours as needed. (Patient not taking: Reported on 01/29/2022) SUCRALFATE ORAL Take by mouth. (Patient not taking: Reported on 01/29/2022) citalopram (CELEXA) 40 mg tablet Take 40 mg by mouth once daily. (Patient not taking: Reported on 01/29/2022) pravastatin (PRAVACHOL) 80 mg tablet Take 80 mg by mouth once daily. rivaroxaban (XARELTO) 15 mg tablet Take 20 mg by mouth once daily. (Patient not taking: Reported on 01/29/2022) suvorexant (BELSOMRA) 20 mg tab Take 1/2 tablet by mouth at bedtime as needed. No current facility-administered medications for this visit. Physical Exam Vitals: There were no vitals taken for this visit. Psych: Pleasant, good affect and mood General Appearance: Well appearing, alert, in no acute distress, well-hydrated, well nourished.. Skin: Skin color, texture, turgor normal, no suspicious rashes or lesions. Peripheral Pulses: Normal. Neurologic: Gait normal. Reflexes normal and symmetric. Sensation grossly intact.. Lymph Nodes: No cervical lymphadenopathy, No supraclavicular lymphadenopathy, No axillary lymphadenopathy., and No inguinal lymphadenopathy.. Respiratory: No recent pulmonary infection, hemoptysis, chronic cough, or shortness of breath at rest Rheumatologic: Joint deformities: Bilateral cmc pain Ortho Exam Assessment and Plan Radiographs: I have independently reviewed films and my findings are the same. and I have reviewed the images with the patient and family. Impression: No diagnosis found. Today, in detail, through a thorough evaluation, we discussed p (more content not included)...[facility]11-22-[facility] History of Present illness Narrative* Radha Suarez DO - 04/14/2024 12:26 PM ESTAssociated Order(s): Small Joint Arthro/Inj: bilateral thumb [facility] Post-Procedure Diagnose(s): CMC arthritis Images from the original note were not included. Follow Up Visit Chief Complaint Lee Tadeo is a 83 year old male who presents today for follow up office visit. Patient presents with: Right Thumb - Follow Up, Established Patient, Pain Left Thumb - Established Patient, Follow Up, Pain History of Present Illness PAIN EVALUATION 04/14/2024 1228 Pain Level: 2 Pain Location: -- bilateral hands Description: Sore;Aching Duration Amount of Time: -- ongoing Frequency: Intermittent HPI: Lee Tadeo is a 83 year old male for a follow up visit . Here for cmc injections, statesprevious injections have worked, now would like repeat injection. Pain history is noted as above. Discussed with patient possible options for treatment. Patient elected proceed with injection. Patient told not to submerge the injected area for 24 hours in a hot tub, or bath, injection may take 2 weeks for improvement to be noticed, follow-up in 2 -6 weeks if symptoms do not resolve. All questionsanswered patient agreement of plan. Apply ice Limit activities as discussed Rest Do not submerge limb in water for 24 hours Cont current meds Watch sugars/decrease carbs Call if warm/hot/red Discussed with patient that if the injection does not work after 2 to 4 weeks to come back for reevaluation. Discussed the next 3 days may feel worse before it feels better. Discussed if having continued pain to return. May get injection every 3 months Is there any overall improvement in your condition? No Any new injury, since being seen last: No REVIEW OF SYMPTOMS: Patient did not have, and does not currently have, any weight loss, malaise, fever, chills, headache, chest pain, chest pressure, palpitations, cough, shortness of breath, orthopnea, paroxsymal nocturnal dyspnea, nausea, vomiting, diarrhea, constipation, melena, hematochezia, urinary difficulties, prolonged bleeding, easily bruising, heat or cold intolerance, new onset joint pain or swelling, newonset extremity weakness or numbness, new onset auditory or visual disturbances, lightheadedness, dizziness, partial loss of consciousness or full loss of consciousness. Current Outpatient Medications Medication Sig NIFEdipine XL (ADALAT CC) 30 mg 24 hr tablet Take 1 tablet by mouth every afternoon. citalopram (CELEXA) 20 mg tablet Take 20 mg by mouth once daily. apixaban (ELIQUIS) 5 mg tab(s) Take by mouth twice daily. polyethylene glycol 3350 (CLEARLAX ORAL) Take by mouth. omega-3 fatty acids (FISH OIL CONCENTRATE) 1,000 mg cap Take by mouth twice daily. multivit with minerals/lutein (MULTIVITAMIN 50 PLUS ORAL) Take 1 tablet by mouth once daily. CLENPIQ 10 mg-3.5 gram -12 gram/160 mL soln Use as instructed. lisinopril (ZESTRIL, PRINIVIL) 5 mg tablet Take 5 mg by mouth once daily. CPAP acetaminophen (TYLENOL) 500 mg tablet Take 1,000 mg by mouth as needed. DOCOSAHEXANOIC ACID/EPA (FISH OIL ORAL) Take 1,200 mg by mouth once daily. celecoxib(CELEBREX 200 MG CAP) Take 200 mg by mouth once daily. PANTOPRAZOLE 40 MG TAB, DELAYED RELEASE Take by mouth twice daily. Swallow whole. DO NOT crush or break. esomeprazole (NEXIUM) 40 mg capsule Take 1 capsule by mouth once daily. keTORolac (TORADOL) 10 mg tablet Take 1 tablet by mouth every 8 hours as needed. (Patient not taking: Reported on 01/29/2022) SUCRALFATE ORAL Take by mouth. (Patient not taking: Reported on 01/29/2022) citalopram (CELEXA) 40 mg tablet Take 40 mg by mouth once daily. (Patient not taking: Reported on 01/29/2022) pravastatin (PRAVACHOL) 80 mg tablet Take 80 mg by mouth once daily. rivaroxaban (XARELTO) 15 mg tablet Take 20 mg by mouth once daily. (Patient not taking: Reported on 01/29/2022) suvorexant (BELSOMRA) 20 mg tab Take 1/2 tablet by mouth at bedtime as needed. No current facility-administered medications for this visit. Physical Exam Vitals: There were no vitals taken for this visit. Psych: Pleasant, good affect and mood General Appearance: Well appearing, alert, in no acute distress, well-hydrated, well nourished.. Skin: Skin color, texture, turgor normal, no suspicious rashes or lesions. Peripheral Pulses: Normal. Neurologic: Gait normal. Reflexes normal and symmetric. Sensation grossly intact.. Lymph Nodes: No cervical lymphadenopathy, No supraclavicular lymphadenopathy, No axillary lymphadenopathy., and No inguinal lymphadenopathy.. Respiratory: No recent pulmonary infection, hemoptysis, chronic cough, or shortness of breath at rest Rheumatologic: Joint deformities: Bilateral cmc pain Ortho Exam Assessment and Plan Radiographs: I have independently reviewed films and my findings are the same. and I have reviewed the images with the patient and family. Impression: No diagnosis found. Today, in detail, through a thorough evaluation, we discussed possible etiologies of pain and our plans for further diagnostic and therapeutic interventions. We discussed strategies for decreasing pain and improving strength, stability and motion. Patient's questions were answered in detailed. Patient verbalizes understanding and agrees with the treatment plan as discussed. Discussed with patient possible options for treatment. Patient elected proceed with injection. Patient told not to submerge the injected area for 24 hours in a hot tub, or bath, injection may take 2 weeks for improvement to be noticed, follow-up in 2 -6 weeks if symptoms do not resolve. All questions answered patient agreement of plan. Apply ice Limit activities as discussed Rest Do not submerge limb in water for 24 hours Cont current meds Watch sugars/decrease carbs Call if warm/hot/red Discussed with patient that if the injection does not work after 2 to 4 weeks to come back for reevaluation. Discussed the next 3 days may feel worse before it feels better. Discussed if having continued pain to return. May get injection every 3 months Small Joint Arthro/Inj: bilateral thumb CMC Informed Consent Consent Obtained: Verbal [place] Protocol A moment to CARE was completed. SIGN IN Personnel directly involved with the procedure wore the appropriate PPE. Special Equipment: Yes Patient/Surrogate Stated/Verified: Patient name, Date of , Relevant allergies and Intended procedure TIME OUT Intended patient and procedure match the source document(s). Consent documented and matches the intended procedure. Relevant labs, photos, and/or imaging studies have been reviewed. No correct side/site applicable for marking and visibility. Medications required for procedure verified. Fire risk assessed and interventions discussed. No implant(s) inserted. 04/14/2024 11:02 AM The procedure site was prepped in the usual sterile fashion. Medications (Right): 10 mg triamcinolone acetonide 10 mg/mL Medications (Left): 10 mg triamcinolone acetonide 10 mg/mL Anesthetics (Right): 1 mL BUPivacaine (PF) 0.5 % (5 mg/mL) Anesthetics (Left): 1 mL BUPivacaine (PF) 0.5 % (5 mg/mL) Outcome: tolerated well, no immediate complications Post-injection instructions were reviewed with the patient and the patient voiced understanding of these instructions. SIGN OUT All instruments, equipment, possible retained foreign bodies accounted for. Post-procedure follow-up management communicated and Plan of Care Visit completed when applicable Last XR Hand/Finger - Impression Only XR HAND GENERAL 3V PA/LAT/OBL BILATERAL Exam End: 04/14/2024 12:35 PM (In process) Radha Thao.Juancho. M.P.H. documented [facility] History of Present illness Narrative* Michelle Green Tech - 04/14/2024 11:50 AM EST Radiology Service Progress Note PATIENT NAME: Lee Tadeo DATE OF SERVICE: April 14, 2024 TIME: 12:39 PM PATIENT IDENTITY VERIFICATION COMPLETED USING TWO (2) IDENTIFIERS: Name and Date of confirmedby patient verbally. FALL SCREENING: Has the patient had 2 falls in the last year or 1 fall with injury or currently using an Ambulatory Assistive Device (Walker, Cane, Wheelchair, Crutches, etc.)? No PATIENT GENDER DATA: Male PATIENT RELEVANT IMPLANT DATA REVIEWED: Not Applicable PATIENT PRESENTS WITH AN IMPLANTABLE OR ATTACHED GAS TREATER: No RADIOLOGY DEPARTMENT: General X-ray: Exam(s) Completed: Upper Extremity X- Ray(s): Hand, bilateral PERIPHERAL IV DATA: Not applicable SIGNED BY: Cynthia Hansen April 14, 2024 12:39 PM documented in this encounterBl[facility]24 NoteHNO ID: [id number] Author: MICHELLE GREEN Tech Service: Radiology Author Type: Granite Polisher Machine Type: Progress Notes Filed: 04/14/2024 12:40 Note Text: Radiology Service Progress Note PATIENT NAME: Lee Tadeo DATE OF SERVICE: April 14, 2024 TIME: 12:39 PM PATIENT IDENTITY VERIFICATION COMPLETED USING TWO (2) IDENTIFIERS: Name and Date of confirmed by patient verbally. FALL SCREENING: Has the patient had 2 falls in the last year or 1 fall with injury or currently using an Ambulatory Assistive Device (Walker, Cane, Wheelchair, Crutches, etc.)? No PATIENT GENDER DATA: Male PATIENT RELEVANT IMPLANT DATA REVIEWED: Not Applicable PATIENT PRESENTS WITH AN IMPLANTABLE OR ATTACHED GAS TREATER: No RADIOLOGY DEPARTMENT: General X-ray: Exam(s) Completed: Upper Extremity X-Ray(s): Hand, bilateral PERIPHERAL IV DATA: Not applicable SIGNED BY: Cynthia Hansen April 14, 2024 12:39 [id number] Note ORIGINAL EXAMINATION: 3 XRAY VIEWS OF THE THORACIC SPINE 02/15/2024 11:20 am COMPARISON: Chest x-ray on 01/14/2018 and 02/15/2024 HISTORY: ORDERING SYSTEM PROVIDED HISTORY: Reason for Exam: left lower rib pain Chronic back pain FINDINGS: The thoracic spine alignment demonstrates mild dextroconvex curvature. There is no subluxation. Vertebral bodies are normal in height with no fracture. There is moderate multilevel disc space narrowing and endplate osteophytic spur formation. Visible portions of posterior elements and ribs show no sign of abnormality. IMPRESSION: 1. Moderate multilevel thoracic spondylosis. 2. No fracture or subluxation. Interpreted by: Vasquez Thomason MD Preliminary Report By: Vasquez Thomason MD Electronically signed By Vasquez Thomason MD Dictated Date: 02/16/2024 1:59:07 AM Prelim Date: 02/16/2024 2:01:07 AM Sign Date: 02/16/2024 2:01:07 AM Ordering Provider: [facility]09-24-2024 Note ORIGINAL EXAMINATION: 4 XRAY VIEWS OF LEFT RIBS WITH 1 x-ray view OF THE CHEST 02/15/2024 11:20 am COMPARISON: Chest x-ray on 05/04/2021. Thoracic spine x-ray on 02/15/2024 HISTORY: ORDERING SYSTEM PROVIDED HISTORY: Reason for Exam: left lower rib pain FINDINGS: Chest x-ray demonstrates the heart size and mediastinal contours are normal. There is no lung infiltrate or edema. No pneumothorax or pleural fluid is present. X-rays of the left ribs demonstrate no left rib fracture or osseous lesion. No acute skeletal abnormality is detected. IMPRESSION: 1. No acute cardiopulmonary abnormality. 2. No left rib fracture. Interpreted by: Vasquez Thomason MD Preliminary Report By: Vasquez Thomason MD Electronically signed By Vasquez Thomason MD Dictated Date: 02/16/2024 1:56:46 AM Prelim Date: 02/16/2024 1:58:54 AM Sign Date: 02/16/2024 1:58:54 AM Ordering Provider: [facility]09-24-2024 Note ORIGINAL EXAMINATION: 3 XRAY VIEWS OF THE LUMBAR SPINE 02/15/2024 11:20 am COMPARISON: CT abdomen and pelvis on 03/31/2021. Lumbar spine x-ray on 09/02/2023. HISTORY: ORDERING SYSTEM PROVIDED HISTORY: Reason for Exam: left low back pain FINDINGS: There are 5 lumbar vertebrae. Instrumented posterior screw and erika fixation of L4 and L5 has been performed. Laminectomy at the L4 level has also been performed. Lumbar spine alignment demonstrates 1.5 cm of anterior subluxation of L4 on L5 that is unchanged. There is 8 mm of retrolisthesis of L2 on L3 that is also stable. Mild dextroconvex curvature is unchanged. Vertebral bodies are normal in height with no acute fracture. There is advanced degenerative disc disease at L1-L2 and L2-L3 with disc space narrowing and endplate osteophytosis. There is moderate degenerative disc disease at L 3- L4. Posterior elements show moderate multilevel facet arthropathy without evidence of spondylolysis. The sacroiliac joints are normal. IMPRESSION: 1. Instrumented posterior screw and erika fixation of L4 and L5. 2. 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 3. Advanced multilevel spondylosis, with no acute abnormality detected. Interpreted by: Vasquez Thomason MD Preliminary Report By: Vasquez Thomason MD Electronically signed By Vasquez Thomason MD Dictated Date: 02/16/2024 2:12:29 AM Prelim Date: 02/16/2024 2:17:45 AM Sign Date: 02/16/2024 2:17:45 AM Ordering Provider: [facility]12-31-2023 Note . MICRO - Microbiology PROCEDURE: Culture Wound Aerobic with Gram Stain [*1] SOURCE: Exit Site BODY SITE: Hand L COLLECTED DATE/TIME: 05/21/2023 17:25 EST RECEIVED DATE/TIME: 05/21/2023 19:56 EST START DATE/TIME: 05/21/2023 19:56 EST FREE TEXT SOURCE: FINAL REPORTS Final Report [] Verified Date/Time/Personnel: 05/23/2023 09:03 EST No growth at 48 hours. PRELIMINARY REPORTS Preliminary Report [] Verified Date/Time/Personnel: 05/22/2023 12:28 EST No growth to date STAINS GS [] Verified Date/Time/Personnel: 05/21/2023 20:12 EST 1+ Polymorphonuclear cells No organisms seen. Performing Locations *1: This test was performed at: [facility], [address] [place] [address], [id number] , [facility] ([place])12-16-2022 History of Present illness Narrative* Radha Suarez DO - 12/16/2022 1:44 PM EDTAssociated Order(s): Small Joint Arthro/Inj: bilateral thumb CMC Post-Procedure Diagnose(s): CMC arthritis Images from the original note were not included. Follow Up Visit Chief Complaint Lee Tadeo is a 82 year old male who presents today for follow up office visit. Patient presents with: Right Thumb - Follow Up, Injections Left Thumb - Follow Up, Injections Small Joint Arthro/Inj: bilateral thumb CMC Informed Consent Consent Obtained: Verbal [place] Protocol A moment to CARE was completed. SIGN IN Personnel directly involved with the procedure wore the appropriate PPE. Special Equipment: Yes Patient/Surrogate Stated/Verified: Patient name, Date of , Relevant allergies and Intended procedure TIME OUT Intended patient and procedure match the source document(s). Consent documented and matches the intended procedure. Relevant labs, photos, and/or imaging studies have been reviewed. No correct side/site applicable for marking and visibility. Medications required for procedure verified. Fire risk assessed and interventions discussed. No implant(s) inserted. 12/16/2022 3:02 PM The procedure site was prepped in the usual sterile fashion. Medications (Right): 10 mg triamcinolone acetonide 10 mg/mL Medications (Left): 10 mg triamcinolone acetonide 10 mg/mL Anesthetics (Right): 1 mL BUPivacaine (PF) 0.5 % (5 mg/mL) Anesthetics (Left): 1 mL BUPivacaine (PF) 0.5 % (5 mg/mL) Outcome: tolerated well, no immediate complications Post-injection instructions were reviewed with the patient and the patient voiced understanding of these instructions. SIGN OUT All instruments, equipment, possible retained foreign bodies accounted for. History of Present Illness PAIN EVALUATION 12/16/2022 1341 Pain Level: 2 Pain Location: -- bilateral thumbs Description: Sore;Aching Duration Amount of Time: -- ongoing Frequency: Continuous Intervention/Comfort measure: -- voltaren, cortisone injections HPI: Lee Tadeo is a 82 year old male for a follow up visit bilateral thumb pain. Patient hasbeen experiencing a slight increase in pain lately. His last injection was in January 2022 which gave a good amount of relief. He is here today requesting another round of cortisone injections. Pain history is noted as above. Is there any overall improvement in your condition? Yes, with cortisone injections Any new injury, since being seen last: No REVIEW OF SYMPTOMS: Patient did not have, and does not currently have, any weight loss, malaise, fever, chills, headache, chest pain, chest pressure, palpitations, cough, shortness of breath, orthopnea, paroxsymal nocturnal dyspnea, nausea, vomiting, diarrhea, constipation, melena, hematochezia, urinary difficulties, prolonged bleeding, easily bruising, heat or cold intolerance, new onset joint pain or swelling, newonset extremity weakness or numbness, new onset auditory or visual disturbances, lightheadedness, dizziness, partial loss of consciousness or full loss of consciousness. Current Outpatient Medications Medication Sig NIFEdipine XL (ADALAT CC) 30 mg 24 hr tablet Take 1 tablet by mouth every afternoon. citalopram (CELEXA) 20 mg tablet Take 20 mg by mouth once daily. apixaban (ELIQUIS) 5 mg tab(s) Take by mouth twice daily. omega-3 fatty acids (FISH OIL CONCENTRATE) 1,000 mg cap Take by mouth twice daily. multivit with minerals/lutein (MULTIVITAMIN 50 PLUS ORAL) Take 1 tablet by mouth once daily. pravastatin (PRAVACHOL) 80 mg tablet Take 80 mg by mouth once daily. acetaminophen (TYLENOL) 500 mg tablet Take 1,000 mg by mouth as needed. DOCOSAHEXANOIC ACID/EPA (FISH OIL ORAL) Take 1,200 mg by mouth once daily. PANTOPRAZOLE 40 MG TAB, DELAYED RELEASE Take by mouth twice daily. Swallow whole. DO NOT crush or break. esomeprazole (NEXIUM) 40 mg capsule Take 1 capsule by mouth once daily. keTORolac (TORADOL) 10 mg tablet Take 1 tablet by mouth every 8 hours as needed. (Patient not taking: Reported on 01/29/2022) polyethylene glycol 3350 (CLEARLAX ORAL) Take by mouth. SUCRALFATE ORAL Take by mouth. (Patient not taking: Reported on 01/29/2022) CLENPIQ 10 mg-3.5 gram -12 gram/160 mL soln Use as instructed. citalopram (CELEXA) 40 mg tablet Take 40 mg by mouth once daily. (Patient not taking: Reported on 01/29/2022) lisinopril (ZESTRIL, PRINIVIL) 5 mg tablet Take 5 mg by mouth once daily. rivaroxaban (XARELTO) 15 mg tablet Take 20 mg by mouth once daily. (Patient not taking: Reported on 01/29/2022) suvorexant (BELSOMRA) 20 mg tab Take 1/2 tablet by mouth at bedtime as needed. CPAP celecoxib(CELEBREX 200 MG CAP) Take 200 mg by mouth once daily. No current facility-administered medications for this visit. Physical Exam Vitals: There were no vitals taken for this visit. Psych: Pleasant, good affect and mood General Appearance: Well appearing, alert, in no acute distress, well-hydrated, well nourished.. Skin: Skin color, texture, turgor normal, no suspicious rashes or lesions. Peripheral Pulses: Normal. Neurologic: Gait normal. Reflexes normal and symmetric. Sensation grossly intact.. Lymph Nodes: No cervical lymphadenopathy, No supraclavicular lymphadenopathy, No axillary lymphadenopathy., and No inguinal lymphadenopathy.. Respiratory: No recent pulmonary infection, hemoptysis, chronic cough, or shortness of breath at rest Rheumatologic: Joint deformities: bilateral thumb pain Ortho Exam Assessment and Plan Radiographs: No imaging to review. Impression: Encounter Diagnosis ICD-10-CM 1. 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 We discussed strategies for decreasing pain and improving strength, stability and motion. Patient's questions were answered in detailed. Patient verbalizes understanding and agrees with the treatment plan as discussed. Radha Suarez D.O. M.P.H. documented in [facility]Bl[facility] History of Present illness Narrative* RT Seamus(R) - 01/29/2022 10:30 AM EDT Radiology Service Progress Note PATIENT NAME: Lee Tadeo DATE OF SERVICE: January 29, 2022 TIME: 10:43 AM PATIENT IDENTITY VERIFICATION COMPLETED USING TWO (2) IDENTIFIERS: Name and Date of confirmedby patient verbally. FALL SCREENING: Has the patient had 2 falls in the last year or 1 fall with injury or currently using an Ambulatory Assistive Device (Walker, Cane, Wheelchair, Crutches, etc.)? No PATIENT GENDER DATA: Male PATIENT RELEVANT IMPLANT DATA REVIEWED: Yes RADIOLOGY DEPARTMENT: General X-ray: Exam(s) Completed: Upper Extremity X- Ray(s): Hand, bilateral PERIPHERAL IV DATA: Not applicable SIGNED BY: RT Seamus(R) January 29, 2022 10:43 AM documented in this encounterBl[facility]12[facility] Hospital Discharge instructions Patient Education 05/04/2021 23:31:17 COVID-19 Prevent the Spread of COVID-19 If You Are Sick (10/10/2019)(CUSTOM) Prevent the Spread of COVID-19 If You Are Sick Accessible version: https://www.cdc.gov/coronavirus/2019-ncov/dm-zyj-nou-sick/ykcid-pusi-mcle.html If you are sick with COVID-19 or think you might have COVID-19, follow the steps below to help protect other people in your home and community. Stay home except to get medical care. Stay home. Most people with COVID-19 have mild illness and are able to recover at home without medical care. Do not leave your home, except to get medical care. Do not visit public areas. Take care of yourself. Get rest and stay hydrated. Get medical care when needed. Call your doctor before you go to their office for care. But, if you have trouble breathing or other concerning symptoms, call 911 for immediate help. Avoid public transportation, ride-sharing, or taxis. Separate yourself from other people and pets in your home. As much as possible, stay in a specific room and away from other people and pets in your home. Also, you should use a separate bathroom, if available. If you need to be around other people or animalsin or outside of the home, wear a cloth face covering. See COVID-19 and Animals if you have questions about pets: https://www.cdc.gov/coronavirus/2019ncov/faq.html#BEDUL99eyeummg Monitor your symptoms. Common symptoms of COVID-19 include fever and cough. Trouble breathing is a more serious symptom that means you should get medical attention. Follow care instructions from your healthcare provider and local health department. Your local health authorities will give instructions on checking your symptoms and reporting information. If you develop emergency warning signs for COVID-19 get medical attention immediately. Emergency warning signs include*: Trouble breathing Persistent pain or pressure in the chest New confusion or not able to be woken Bluish lips or face *This list is not all inclusive. Please consult your medical provider for any other symptoms that are severe or concerning to you. Call 911 if you have a medical emergency. If you have a medical emergency and need to call 911, notify the benzol still operator that you have or think you might have, COVID-19. If possible, put on a facemask before medical help arrives Call ahead before visiting your doctor. Call ahead. Many medical visits for routine care are being postponed or done by phone or telemedicine. If you have a medical appointment that cannot be postponed, call your doctor s office. This will help the office protect themselves and other patients. If you are sick, wear a cloth covering over your nose and mouth. You should wear a cloth face covering over your nose and mouth if you must be around other people or animals, including pets (even at home). You don t need to wear the cloth face covering if you are alone. If you can t put on a cloth face covering (because of trouble breathing for example), cover your coughs and sneezes in some other way.Try to stay at least 6 feet away from other people. This will help protect the people around you. Note: During the COVID-19 pandemic, medical grade facemasks are reserved for healthcare workers andsome first responders. You may need to make a cloth face covering using a scarf or bandana. Cover your coughs and sneezes. Cover your mouth and nose with a tissue when you cough or sneeze. Throw used tissues in a lined trash can. Immediately wash your hands with soap and water for at least 20 seconds. If soap and water are not available, clean your hands with an alcohol-based hand gas furnace installer that contains at least 60% alcohol. Clean your hands often. Wash your hands often with soap and water for at least 20 seconds. This is especially important after blowing your nose, coughing, or sneezing; going to the bathroom; and before eating or preparing food. Use hand gas furnace installer if soap and water are not available. Use an alcohol-based hand gas furnace installer with atleast 60% alcohol, covering all surfaces of your hands and rubbing them together until they feel dry. Soap and water are the best option, especially if your hands are visibly dirty. \\ Avoid touching your eyes, nose, and mouth with unwashed hands. Avoid sharing personal household items. Do not share dishes, drinking glasses, cups, eating utensils, towels, or bedding with other people in your home. Wash these items thoroughly after using them with soap and water or put them in the call center support representative. Clean all high-touch surfaces everyday. Clean and disinfect high-touch surfaces in your sick room and bathroom. Let someone else clean and disinfect surfaces in common areas, but not your bedroom and bathroom. If a caregiver or other person needs to clean and disinfect a sick person s bedroom or bathroom, they should do so on an as-needed basis. The caregiver/other person should wear a mask and wait as long as possible after the sick person has used the bathroom High-touch surfaces include phones, remote controls, counters, tabletops, doorknobs, bathroom fixtures, toilets, keyboards, tablets, and bedside tables. Clean and disinfect areas that may have blood, stool, or body fluids on them. Use household production utility worker and disinfectants. Clean the area or item with soap and water or another detergent if it is dirty. Then use a household disinfectant. Be sure to follow the instructions on the label to ensure safe and effective use of the product. Many products recommend keeping the surface wet for several minutes to ensure germs are killed. Many also recommend precautions such as wearing gloves and making sure you have good ventilation during use of the product. Most EPA-registered household disinfectants should be effective. How to discontinue home isolation. People with COVID-19 who have stayed home (home isolated) can stop home isolation under the following conditions: If you will not have a test to determine if you are still contagious, you can leave home after these three things have happened: You have had no fever for at least 72 hours (that is three full days of no fever without the use ofmedicine that reduces fevers) AND other symptoms have improved (for example, when your cough or shortness of breath has improved) AND at least 10 days have passed since your symptoms first appeared. If you will be tested to determine if you are still contagious, you can leave home after these three things have happened: You no longer have a fever (without the use of medicine that reduces fevers) AND other symptoms have improved (for example, when your cough or shortness of breath has improved) AND you received two negative tests in a row, 24 hours apart. Your doctor will follow CDC guidelines. In all cases, follow the guidance of your healthcare provider and local health department. The decision to stop home isolation should be made in consultation with your healthcare provider and state and local health departments. Local decisions depend on local circumstances. cdc.gov/coronavirus Follow Up Care 05/04/2021 20:09:12 With:ANA SHAIKH DO Address: [phone] When:2-4 days [facility] 01-18-2010 History of Past illness Narrative* Problem Noted Date Resolved Date Malignant Neoplasm of Prostate 06/10/2009 0 12/19/2014 documented as of this encounter (statuses as of 01/21/2022) [facility]2010 History of Past illness Narrative* Problem Noted Date Resolved Date Malignant Neoplasm of Prostate 06/10/2009 0 12/19/2014 documented as of this encounter (statuses as of 01/30/2022) [facility] History of Past illness Narrative* Problem Noted Date Diagnosed Date Resolved Date Malignant Neoplasm of Prostate 06/10/2009 12/19/2014 documented as of this encounter (statuses as of 12/16/2022) [facility] Future Appointments Appointment Date:06/03/2021 09:30:00 AM Scheduled Provider:ANA SHAIKH DO Location:[facility] Appointment Type:PC OV Appointment Date:08/20/2021 03:00:00 PM Scheduled Provider:LOREN BUSBY Location:[facility] Appointment Type:CV OV Appointment Date:08/27/2021 08:00:00 AM Scheduled Provider:ANA SHAIKH DO [facility] Appointment Type:PC OV Future Scheduled Tests Laboratory* Hepatic Function Panel 12/03/20 * Ratio Prot/Creat Urine 12/03/20 * Complete Blood Count 12/03/20 * Lipid Profile 12/03/20 * PTH, Intact 12/03/20 * Renal Function Panel 12/03/20 * Vitamin D Level 12/03/20 Radiology* CT Knee w/o Contrast Left 08/20/20 [facility] Evaluation + Plan note Future Appointments Appointment Date:06/03/2021 09:00:00 AM Scheduled Provider:LOREN BUSBY Location:[facility] Appointment Type:CV OV Appointment Date:06/03/2021 09:30:00 AM Scheduled Provider:ANA SHAIKH DO Location:[facility] Appointment Type:PC OV Appointment Date:08/20/2021 03:00:00 PM Scheduled Provider:LOREN BUSBY Location:[facility] Appointment Type:CV OV Appointment Date:08/27/2021 08:00:00 AM Scheduled Provider:ANA SHAIKH DO Location:[facility] Appointment Type:PC OV Future Scheduled Tests Laboratory* Hepatic Function Panel 12/03/20 * Ratio Prot/Creat Urine 12/03/20 * Complete Blood Count 12/03/20 * Lipid Profile 12/03/20 * PTH, Intact 12/03/20 * Renal Function Panel 12/03/20 * Vitamin D Level 12/03/20 Radiology* CT Knee w/o Contrast Left 08/20/20 [facility] Evaluation + Plan note Future Appointments Appointment Date:08/20/2021 03:00:00 PM Scheduled Provider:LOREN BUSBY Location:[facility] Appointment Type:CV OV Appointment Date:08/27/2021 08:00:00 AM Scheduled Provider:ANA SHAIKH DO Location:[facility] Appointment Type:PC OV Appointment Date:12/01/2021 10:00:00 AM Scheduled Provider:ANA SHAIKH DO Location:[facility] Appointment Type:PC OV Future Scheduled Tests Laboratory* Hepatic Function Panel 12/03/20 * Ratio Prot/Creat Urine 12/03/20 * Complete Blood Count 12/03/20 * Lipid Profile 12/03/20 * PTH, Intact 12/03/20 * Renal Function Panel 12/03/20 * Vitamin D Level 12/03/20 Radiology* CT Knee w/o Contrast Left 08/20/20 [facility] Evaluation + Plan note Future Appointments Appointment Date:03/02/2023 09:00:00 AM Scheduled Provider:ANA SHAIKH DO Location:[facility] Appointment Type:PC Wellness Medicare Appointment Date:03/18/2023 01:00:00 PM Scheduled Provider:LOREN BUSBY Location:[facility] Appointment Type:CV OV Future Scheduled Tests Laboratory* A1C Hemoglobin 06/17/22 * Complete Blood Count 06/17/22 * Lipid Profile 06/17/22 * Hepatitis C Antibody IgG 06/17/22 * Microalbumin Level Urine 06/17/22 * PTH, Intact 06/17/22 * Vitamin D Level 06/17/22 * Complete Metabolic Panel 06/17/22 Radiology* BD Bone Density DEXA Axial Skeleton 02/26/22 [facility] Evaluation + Plan note Future Appointments Appointment Date:06/18/2023 11:30:00 AM Scheduled Provider:ANA SHAIKH DO Location:[facility] Appointment Type:PC OV Diagnostic Tests Pending * Vitamin B1 (Thiamine), Blood 05/21/23 Future Scheduled Tests Laboratory* Complete Blood Count 03/02/23 * Complete Metabolic Panel 03/02/23 Radiology* BD Bone Density DEXA Axial Skeleton 03/16/23 * MRI Brain w/o Contrast 05/21/23 [facility] Inaikaaluation + Plan note Future Appointments Appointment Date:06/18/2023 11:30:00 AM Scheduled Provider:ANA SHAIKH DO [facility] Type:PC OV Future Scheduled Tests Laboratory* Basic Metabolic Panel 05/25/23 * Complete Blood Count 03/02/23 * Complete Metabolic Panel 03/02/23 Radiology* BD Bone Density DEXA Axial Skeleton 03/16/23 * MRI Brain w/o Contrast 05/21/23 [facility] Inaikaaluation + Plan note Future Appointments Appointment Date:06/18/2023 11:30:00 AM Scheduled Provider:ANA SHAIKH DO Location:[facility] Appointment Type:PC OV Future Scheduled Tests Laboratory* Complete Blood Count 03/02/23 * Complete Metabolic Panel 03/02/23 Radiology* BD Bone Density DEXA Axial Skeleton 03/16/23 * MRI Brain w/o Contrast 05/21/23 [facility] evaluation + Plan note Future Appointments Appointment Date:03/27/2024 04:00:00 PM Scheduled Provider:ANA SHAIKH DO Location:[facility] Appointment Type: Wellness Annual Future Scheduled Tests Laboratory* Complete Blood Count 03/02/23 * Complete Metabolic Panel 03/02/23 Radiology* BD Bone Density DEXA Axial Skeleton 03/16/23 * MRI Brain w/o Contrast 05/21/23 [facility] evaluation + Plan note Future Appointments Appointment Date:03/27/2024 04:00:00 PM Scheduled Provider:ANA SHAIKH DO Location:[facility] Appointment Type: Wellness Annual Future Scheduled Tests Laboratory* Basic Metabolic Panel 02/28/24 Radiology* MRI Brain w/o Contrast 05/21/23 [facility] evaluation + Plan note Future Appointments Appointment Date:10/03/2024 08:00:00 AM Scheduled Provider:ANA SHAIKH DO Location:[facility] Appointment Type:PC Wellness Medicare Future Scheduled Tests Laboratory* Basic Metabolic Panel 02/28/24 * Complete Blood Count 06/29/24 * Albumin/Creatinine Ratio, Random Urine 08/10/24 Radiology* BD Bone Density DEXA Axial Skeleton Adult (21 yrs or older) 06/05/24 [facility] Evaluation + Plan note Future Appointments Appointment Date:01/16/2025 09:00:00 AM Scheduled Provider:ANA SHAIKH DO Location:[facility] Appointment Type:PC Wellness Medicare Future Scheduled Tests Laboratory* Vitamin B1 (Thiamine), Blood 10/03/24 * Basic Metabolic Panel 07/10/24 * Basic Metabolic Panel 02/28/24 * Prostate Specific Antigen 10/03/24 * Thyroid Stimulating Hormone 10/03/24 * Free T4 10/03/24 * Vitamin B12 Level 10/03/24 * A1C Hemoglobin 10/03/24 * Complete Blood Count 06/29/24 * Complete Blood Count 10/03/24 * Lipid Profile 10/03/24 * Albumin/Creatinine Ratio, Random Urine 08/10/24 * Albumin/Creatinine Ratio, Random Urine 10/03/24 * Complete Metabolic Panel 10/03/24 * MISC Lab Send out (Blood Specimens) 10/03/24 Radiology* BD Bone Density DEXA Axial Skeleton Adult (21 yrs or older) 06/05/24 [facility] Evaluation + Plan note Future Appointments Appointment Date:01/16/2025 09:00:00 AM Scheduled Provider:ANA SHAIKH DO Location:[facility] Appointment Type:PC Wellness Medicare Diagnostic Tests Pending * Miscellaneous LC Test 10/09/24 * Miscellaneous LC Test 10/09/24 * Vitamin B1 (Thiamine), Blood 10/09/24 Future Scheduled Tests Laboratory* Basic Metabolic Panel 07/10/24 * Basic Metabolic Panel 02/28/24 * Complete Blood Count 06/29/24 * Albumin/Creatinine Ratio, Random Urine 10/03/24 * MISC Lab Send out (Blood Specimens) 10/03/24 Radiology* BD Bone Density DEXA Axial Skeleton Adult (21 yrs or older) 06/05/24 [facility] Evaluation note* Diagnosis Bilateral thumb pain- Primary [facility] Diagnosis Bilateral thumb pain [facility] Diagnosis [facility] arthritis- Primary Unspecified arthropathy, hand documented in this encounter [facility] note* Diagnosis Onset Date Resolution Status Dysuria acute Urinary incontinence [facility] Work Phone: Evaluation note* Diagnosis [facility] arthritis- Primary Unspecified arthropathy, hand documented in this encounter [facility] note* Diagnosis [facility] arthritis Unspecified arthropathy, hand documented in this encounter [facility] note* Diagnosis [facility] arthritis- Primary Unspecified arthropathy, hand documented in this encounter [facility] note* Diagnosis [facility] arthritis- Primary Unspecified arthropathy, hand [facility] Narrative No data available for this section [facility] Hospital Discharge instructions No data available for this section [facility] Hospital Discharge instructionsAmbulatory Orders* Plastic surgery Location: [facility] Work Phone: Progress note No data available for this section [facility] Reason for referral (narrative)* Diagnostic Procedure Only (Routine) - Pending Review Specialty Diagnoses / Procedures Referred By Contac t Referred To Contact XR IMAGING Diagnoses Bilateral thumb pain Procedures XR HAND GENERAL 3V PA/LAT/OBL BILATERAL RADEX HAND MINIMUM 3 VIEWS Radha Suarez DO [address] [place] [address] Xr Imaging Referral ID Status Reason Start Date Expiration Date Visits Requested Visits Authorized [id number] Pending Review Auto-Generat ed Referral 01/21/2022 02/20/2023 1 1 [facility] Diagnostic Procedure Only (Routine) - Closed Specialty Diagnoses / Procedures Referred By Contac t Referred To Contact XR IMAGING Diagnoses Bilateral thumb pain Procedures XR HAND GENERAL 3V PA/LAT/OBL BILATERAL RADEX HAND MINIMUM 3 VIEWS Radha Suarez DO [address] [place] [address] Xr Imaging Referral ID Status Reason Start Date Expiration Date V isits Requested Visits Authorized [id number] Closed Auto-Generate d Referral 01/21/2022 02/20/2023 1 1 [facility] for referral (narrative)* Diagnostic Procedure Only (Routine) - New Request Specialty Diagnoses / Procedures Referred By Contac t Referred To Contact XR IMAGING Diagnoses [facility] arthritis Procedures XR HAND GENERAL 3V PA/LAT/OBL BILATERAL RADEX HAND MINIMUM 3 VIEWS Cheyenne Montez PA-C [address] [place] [address] [place] [address] Referral ID Status Reason Start Date Expiration Date Visits Requested Visits Authorized [id number] New Request Auto-Generat ed Referral 03/27/2024 04/26/2025 1 1 [facility] for referral (narrative)No reason for referral [facility] Work Phone: reason for visit Narrative* Diagnostic Procedure Only (Routine) - Closed Specialty Diagnoses / Procedures Referred By Contac t Referred To Contact XR IMAGING Diagnoses Bilateral thumb pain Procedures XR HAND GENERAL 3V PA/LAT/OBL BILATERAL RADEX HAND MINIMUM 3 VIEWS Radha uSarez DO [address] [place] [phone] Xr Imaging Referral ID Status Reason Start Date Expiration Date V isits Requested Visits Authorized [id number] Closed Auto-Generate d Referral 01/21/2022 02/20/2023 1 1 [facility] for visit Narrative* Diagnostic Procedure Only (Routine) - Closed Specialty Diagnoses / Procedures Referred By Contac t Referred To Contact XR IMAGING Diagnoses [facility] arthritis Procedures XR HAND GENERAL 3V PA/LAT/OBL BILATERAL RADEX HAND MINIMUM 3 VIEWS Cheyenne Montez PA-C [address] [place] [phone] [place] [address] Referral ID Status Reason Start Date Expiration Date V isits Requested Visits Authorized [id number] Closed Auto-Generate d Referral 03/27/2024 04/26/2025 1 1 [facility] Advance Directives Documents on File Type Date Recorded 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 Advance Directive(s) 08/23/2009 9:01 PM Documents on File Type Date Recorded 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 Advance Directive(s) 08/23/2009 9:01 PM Advance Directive Response Recorded Date/ Time Living Will Yes August 21, 2020 8:21am Power of Seo Expert Yes August 21 8:21am Medications Administered Section Inactive Administered Medications - up to 3 most recent administrations Medication Order MAR Action Action Date Dose Rate Site BUPivacaine (PF) 0.5 % (5 mg/mL) 1 mL injection 1 mL, Injection - FOR ORTHO USE ONLY, ONE TIME INJECTION, 1 dose, Starting on Wed12/16/22 at 1502, Until Wed12/16/22 at 1502 Given 12/16/2022 3:02 PM EDT 1 mL Hand, Left BUPivacaine (PF) 0.5 % (5 mg/mL) 1 mL injection 1 mL, Injection - FOR ORTHO USE ONLY, ONE TIME INJECTION, 1 dose, Starting on Wed12/16/22 at 1502, Until Wed12/16/22 at 1502 Given 12/16/2022 3:02 PM EDT 1 mL Hand, Right triamcinolone acetonide 10 mg injection (KeNALog 10) 10 mg, Injection - FOR ORTHO USE ONLY, ONE TIME INJECTION, 1 dose, Starting on Wed12/16/22 at 1502, Until Wed12/16/22 at 1502 Given 12/16/2022 3:02 PM EDT 10 mg Hand, Left triamcinolone acetonide 10 mg injection (KeNALog 10) 10 mg, Injection - FOR ORTHO USE ONLY, ONE TIME INJECTION, 1 dose, Starting on Wed12/16/22 at 1502, Until Wed12/16/22 at 1502 Given 12/16/2022 3:02 PM EDT 10 mg Hand, Right Chief Complaint and Reason for Visit Chief Complaint URINARY COMPLAINTS LABSPEC Reason for Visit Dysuria Urinary incontinence Chief Complaint Admit Date RIGHT SHOULDER September 01, 2024 8:1 4am L WRIST PAIN September 05, 2024 1:4 4pm room 6 September 05, 2024 2:5 4pm 2 MO F/U November 07, 2024 2:37 pm Reason for Visit Admit Date Impingement of right shoulder August 8:14am [facility] arthritis, thumb, degenerative September 05, 2024 1:44pm Chief Complaint Admit Date 2 MO F/U November 07, 2024 2:37 pm 3 month follow up January 09, 2025 2: 21pm Reason for Visit Admit Date [facility] arthritis, thumb, degenerative November 07, 2024 2:37pm Chief Complaint Admit Date 2 MO F/U November 07, 2024 2:37 pm 3 month follow up January 09, 2025 2: 21pm LEFT SHOULDER February 28, 2025 9: 53am Room 4 February 28, 2025 10 :02am Reason for Visit Admit Date [facility] arthritis, thumb, degenerative November 07, 2024 2:37pm [facility] arthritis, thumb, degenerative Augus t 2024 2:21pm Summary Purpose Family History No Family History Records Found Additional Source Comments Source Comments (unrecognize d section and content) In the event this informatio n is protected by the Federal Confidentiality of Alcohol and Drug Abuse Patient Records regulations: The Federal rules restrict any use of the information to criminally investigate or prosecute any alcohol or drug abuse patient.[facility] the event this information is protected by the Federal Confidentiality of Alcohol and Drug Abuse Patient Records regulations: The Federal rules restrict any use of the information to criminally investigate or prosecute any alcohol or drug abuse patient.[facility] the event this information is protected by the Federal Confidentiality of Alcohol and Drug Abuse Patient Records regulations: The Federal rules restrict any use of the information to criminally investigate or prosecute any alcohol or drug abuse patient.[facility] the event this information is protected by the Federal Confidentiality of Alcohol and Drug Abuse Patient Records regulations: The Federal rules restrict any use of the information to criminally investigate or prosecute any alcohol or drug abuse patient.[facility] the event this information is protected by the Federal Confidentiality of Alcohol and Drug Abuse Patient Records regulations: The Federal rules restrict any use of the information to criminally investigate or prosecute any alcohol or drug abuse patient.[facility] the event this information is protected by the Federal Confidentiality of Alcohol and Drug Abuse Patient Records regulations: The Federal rules restrict any use of the information to criminally investigate or prosecute any alcohol or drug abuse patient.[facility] the event this information is protected by the Federal Confidentiality of Alcohol and Drug Abuse Patient Records regulations: The Federal rules restrict any use of the information to criminally investigate or prosecute any alcohol or drug abuse patient.[facility] Care Teams (unrecognized sec tion and content) Operations Support Specialist Relationship Specialty Start Date End Date Ana Shaikh IV, MD [address] [place] [address] PCP - General Family Practice 11/28/19 Operations Support Specialist Relationship Specialty Start Date End Date Ana Shaikh IV, MD [address] [place] [address] PCP - General Family Practice 11/28/19 Operations Support Specialist Relationship Specialty Start Date End Date Ana Shaikh IV, DO [address] [place] [address] PCP - General Family Medicine 11/28/19 Team Status: Active Member Role Status Dates Dr. Leonid Feliz DO Family Provider Active Team Status: Inactive Member Role Status Dates Skip GONSALEZ, PA Attending Provider Active Operations Support Specialist Relationship Specialty Start Date End Date Ana Shaikh IV, DO [address] [place] [address] PCP - General Family Medicine 11/28/19 Operations Support Specialist Relationship Specialty Start Date End Date Ana Shaikh IV, DO [address] [place] [address] PCP - General Family Medicine 11/28/19 Operations Support Specialist Relationship Specialty Start Date End Date Ana Shaikh IV, DO [address] [place] [id number] PCP - General Family Medicine 11/28/19 Operations Support Specialist Relationship Specialty Start Date End Date Ana Shaikh IV, DO [address] [place] [id number] PCP - General Family Medicine 11/28/19 Team Status: Active Member Role Status Dates Dr. Leonid Feliz DO Family Provider Active Dr. Ana Shaikh DO Primary Care Provider Active Team Status: Inactive Member Role Status Dates Dr. Ana Shaikh DO Primary Care Provider Active Start: September 01, 2024 End: September 01, 2024 Dr. Ana Shaikh DO Referring Provider Active Start: September 01, 2024 End: September 01, 2024 CAL Walton Attending Provider Active Start: September 01, 2024 End: September 01, 2024 Team Status: Inactive Member Role Status Dates Dr. Ana Shaikh DO Primary Care Provider Active Start: September 05, 2024 End: September 05, 2024 Dr. Ana Shaikh DO Referring Provider Active Start: September 05, 2024 End: September 05, 2024 Dr. Tashi Beasley MD Attending Provider Active Start: September 05, 2024 End: September 05, 2024 Team Status: Inactive Member Role Status Dates Dr. Ana Shaikh DO Primary Care Provider Active Start: September 05, 2024 End: September 05, 2024 Dr. Dedrick Loza MD Attending Provider Active S tart: September 05, 2024 End: September 05, 2024 Team Status: Inactive Member Role Status Dates Dr. Ana Shaikh DO Primary Care Provider Active Start: November 07, 2024 End: November 07, 2024 Dr. Ana Shaikh DO Referring Provider Active Start: November 07, 2024 End: November 07, 2024 Dr. Tashi Beasley MD Attending Provider Active Start: November 07, 2024 End: November 07, 2024 Team Status: Active Member Role/Relationship Status Dates Dr. Ana Shaikh DO Primary Care Provider Active Team Status: Inactive Member Role/Relationship Status Dates Dr. Ana Shaikh DO Primary Care Provider Active Start: November 07, 2024 End: November 07, 2024 Dr. Tashi Beasley MD Attending Provider Active Start: November 07, 2024 End: November 07, 2024 Dr. Tashi Beasley MD Referring Provider Active Start: November 07, 2024 End: November 07, 2024 Team Status: Inactive Member Role/Relationship Status Dates Dr. Ana Shaikh DO Primary Care Provider Active Start: January 09, 2025 End: January 09, 2025 Dr. Ana Shaikh DO Referring Provider Active Start: January 09, 2025 End: January 09, 2025 Dr. Tashi Beasley MD Attending Provider Active Start: January 09, 2025 End: January 09, 2025 Team Status: Active Member Role/Relationship Status Dates Dr. Ana Shaikh DO Primary care physician Active Team Status: Inactive Member Role/Relationship Status Dates Dr. Ana Shaikh DO Primary care physician Active Start: November 07, 2024 End: November 07, 2024 Dr. Tashi Beasley MD Attending physician Active Start: November 07, 2024 End: November 07, 2024 Dr. Tashi Beasley MD Referring Provider Active Start: November 07, 2024 End: November 07, 2024 Team Status: Inactive Member Role/Relationship Status Dates Dr. Ana Shaikh DO Primary care physician Active Start: January 09, 2025 End: January 09, 2025 Dr. Ana Shaikh DO Referring Provider Active Start: January 09, 2025 End: January 09, 2025 Dr. Tashi Beasley MD Attending physician Active Start: January 09, 2025 End: January 09, 2025 Team Status: Active Member Role/Relationship Status Dates Dr. Ana Shakih DO Primary care physician Active Start: February 28, 2025 Dr. Ana Shaikh DO Referring Provider Active Start: February 28, 2025 CAL Walton Attending physician Active Start: February 28, 2025 Team Status: Inactive Member Role/Relationship Status Dates Dr. Ana Shaikh DO Primary care physician Active Start: February 28, 2025 End: February 28, 2025 Dr. Dedrick Loza MD Attending physician Active Start: February 28, 2025 End: February 28, 2025 Team Status: Inactive Member Role/Relationship Status Dates Dr. Ana Shaikh DO Primary care physician Active Start: February 28, 2025 End: February 28, 2025 Dr. 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 Care Team Related Persons Name: STEVEN TADEO Address: [address], [place] [id number] Reason for Visit (unrecogniz ed section and content) Reason Comments Follow Up Injections Reason Comments Follow Up Established Patient Pain Reason Comments Follow Up Pain Goals (unrecognized section and content) Goals may be documented in a n alternate section (unrecognized sect ion and content) No Status Records FoundNo Status Records FoundNo Status Records FoundNo Status Records FoundNo Status Records Found INFORMATION SOURCE (unrecogn ized section and content) DATE CREATED AUTHOR 11/27/2023 [facility] DATE CREATED AUTHOR AUTHOR'S ORGANIZ ATION 04/20/2024 [facility] DATE CREATED AUTHOR AUTHOR'S ORGANIZ ATION 08/07/2024 [facility] DATE CREATED AUTHOR AUTHOR'S ORGANIZ ATION 10/19/2024 [facility] DATE CREATED AUTHOR AUTHOR'S ORGANIZ ATION 03/01/2025 [facility] FOR RECORDS PERTAINING TO PATIENTS WHO ARE OR HAVE BEEN ENROLLED IN A CHEMICAL DEPENDENCY/SUBSTANCEABUSE PROGRAM, SOME INFORMATION MAY BE OMITTED. This clinical summary was aggregated from multiple sources. Caution should be exercised in using it in the provision of clinical care. This summary normalizes information from multiple sources, and as a consequence, information in this document may materially change the coding, format and clinical context of patient data. In addition, data may be omitted in some cases. CLINICAL DECISIONS SHOULD BE BASED ON THE PRIMARY CLINICAL RECORDS. [facility] [employer] [facility]. provides no warranty or guarantee of the accuracy or completeness of information in this document.
== END | disposition home or self-care (01) ==
PROVIDERS: PCP Student in an Organized Health Care Education/Training Program; Referring Provider Student in an Organized Health Care Education/Training Program; Visit Provider Student in an Organized Health Care Education/Training Program
DX: K59.00 Constipation, unspecified (principal); R10.9 Unspecified abdominal pain
CPT/HCPCS: 74177; Q9967